=== PATIENT | male | born 1955 | race Caucasian/White ===

== ENCOUNTER 2023-09-29 06:17 | Day surgery (SDC) | payer OTHER, SELFPAY ==
[2023-09-29] VITALS (13 sets, daily range): BP systolic 131–162; BP diastolic 64–88; BMI 28.7
[2023-09-29 07:15] LABS: Blood Urea Nitrogen 30 mg/dl (9-20); Carbon Dioxide 26 mmol/L (22-30); Chloride 101 mmol/L (98-107); Estimated Creatinine Clearance 49 ml/min; Glucose 84 mg/dl (70-99); Potassium 2.8 mmol/L (3.5-5.1); Sodium 138 mmol/L (135-145); eGFR > 60.00
[2023-09-29] MEDS: NSS 220 ML IV (07:18)
[2023-09-29] MEDS: LOW STRENGTH ASPIRIN 81 MG PO (07:19)
[2023-09-29] MEDS: KCL 40 MEQ PO (08:00)
--- NOTE | 2023-09-29 09:46 | ITS.CL.CATH ---
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
Cardiac Catheterization
Procedure Report:
RIGHT AND LEFT HEART CATHETERIZATION
Date of Procedure: September 29, 2023
Referring: Dr. Raman Cox
PROCEDURES:
1. Right heart catheterization
2. Left heart catheterization with coronary angiography
3. Selective saphenous vein graft and SHIREEN angiography
4. Right iliofemoral angiography performed to evaluate for flow-limiting dissection due to inability to pass wires from common femoral artery to aorta.
INDICATION: This is a 67-year-old gentleman with a complex past cardiovascular history including ongoing dyspnea and exertional chest pressure. His creatinine had peaked at 2.6 while on valsartan, spironolactone, and an SGLT2 inhibitor. He
experienced sudden syncope on 2 occasions and now has a Linq monitor placed. He is known to have underlying pulmonary fibrosis and COPD. His symptoms have persisted and he is now referred for right and left heart catheterization.
ACCESS: Unsuccessful right common femoral access due to inability to pass wire proximally. Arterial access was then obtained in the left common femoral artery with micropuncture technique. Venous access was obtained in the right common femoral
vein using ultrasound guidance.
HEMODYNAMICS (mmHg) :
RA (m) : 16
RV (s/d) : 68/9, 13
PA (s/d,m) : 70/29, 43
PCWP (m) : 15
AO (s/d, m) : 148/70, 99
LV (s/d) : 149/11
LVEDP (m) : 18
Estimated Hasmukh Cardiac Output: 4.1 L/min and Cardiac Index: 2.4 L/min/M-2
Systemic vascular resistance: 20.2 Wood units or 1620 [id number](-5)
Pulmonary vascular resistance: 6.8 Wood units or 546.3 canec-[id number]-[id number](-5)
CORONARY ANGIOGRAPHY
Dominance: Right
LEFT MAIN: 60% ostial stenosis
LEFT ANTERIOR DESCENDING: The LAD arises normally from the left main and runs in the anterior interventricular groove. The proximal LAD has a 80% stenosis just beyond a small first septal footwear stitcher. The mid LAD becomes occluded/subtotally
occluded beyond a medium caliber first diagonal branch. The distal LAD fills via a widely patent SHIREEN graft
CIRCUMFLEX: The circumflex is a medium caliber nondominant vessel. OM1 is a very small caliber bifurcating vessel. OM 2 is known to be chronically occluded and is grafted with proximal touchdown of the sequential graft to OM 2 then continues to
the PDA
RIGHT CORONARY ARTERY: 100% occluded proximally
GRAFT ANGIOGRAPHY:
1. HALL-LAD: The HALL graft to the mid LAD is widely patent with antegrade and retrograde filling of the LAD
2. SVG-OM 2-PDA: The sequential saphenous vein graft to the bifurcating OM 2 is widely patent with antegrade and retrograde filling into both daughter branches from OM 2. The sequential graft continues to the mid PDA which fills antegrade and
retrograde
Left Lower Extremity Angiography: A rim catheter was advanced to the aortic bifurcation cannulating the origin of the right common iliac artery. Angiography of the iliofemoral vessels revealed a normal caliber common iliac through common femoral.
There is a 50% stenosis in the mid common femoral artery. No obvious dissection flap is noted.
RADIATION SUMMARY: Fluoro Time (min): 6.7, Dose (mGy): 550, DAP (Gy.cm2) : 52.6
Closure Device: 6 Czech Angio-Seal LFA
CONCLUSION
1. Patent HALL-LAD and sequential SVG-OM 2-PDA. Severe multivessel [place] coronary artery disease
2. Elevated pulmonary vascular resistance to 6.8 Wood units
3. Compensated left ventricular filling pressures with a pulmonary capillary wedge pressure measuring 15 mmHg and LVEDP measuring 18 mmHg
RECOMMENDATIONS
1. Continue medical therapy
2. Consider pulmonary evaluation given elevated mean pulmonary artery pressures to 43 mmHg and PVR of 6.8 Wood units
Copy to: Dr. Raman Cox
[2023-09-29] MEDS: NSS 1000 IV (10:02)
== END 2023-09-29 12:38 | disposition home or self-care (01) ==
LOC: CATH 06:17
PROVIDERS: ATTENDING PHYSICIAN Internal Medicine Interventional Cardiology; FAMILY PHYSICIAN Internal Medicine Geriatric Medicine
DX: I25.10 Atherosclerotic heart disease of native coronary artery without angina pectoris (principal); J44.9 Chronic obstructive pulmonary disease, unspecified; J84.10 Pulmonary fibrosis, unspecified; R55 Syncope and collapse; I25.82 Chronic total occlusion of coronary artery; Z95.1 Presence of aortocoronary bypass graft; E78.00 Pure hypercholesterolemia, unspecified; I10 Essential (primary) hypertension; E11.9 Type 2 diabetes mellitus without complications; Z79.4 Long term (current) use of insulin; Z79.82 Long term (current) use of aspirin
CPT/HCPCS: 80048; 93461; C1760; C1894; G0278

== ENCOUNTER 2023-10-03 10:04 | Emergency (ER) | payer OTHER, SELFPAY ==
[2023-10-03 10:06] VITALS: BP 121/75
--- NOTE | 2023-10-03 10:49 | ED.GENMED ---
History of Present Illness
<Kerry Snell PA-C - Last Filed: 10/04/23 10:16>
General
Chief Complaint: Musculo-Skeletal Complaint
Source: patient
Exam Limitations: none
Time Seen by Provider: 10/03/23 10:37
Nursing documentation reviewed up to this point in time: agreed with
Travel History
Have you had any contact with someone who has COVID-19?: No
Do you have any symptoms of coronavirus? Fever > 100 degrees, chills, cough, shortness of breath, sore throat, loss of taste or smell, muscle aches, or headache?: No
History of Present Illness
History of Present Illness:
67 y/o M with h/o COPD, alcohol use, HTN , HLD, CHF, CAD
s/p R and L heart cath on 09/2023
showing severe multivessel CAD
elevated pulm vasculature
compensated LV filling pressures
day after the procedure started having some low back pain, which pt does have h/o, aand was taking pain pills for - history of previous lumbar surgery and does have h/o chronic lower back pain but he usually doesn't have to take meds
then noticed L medial foot pain, redness, slight swelling
he called cards and was told to come in
he gutierrez not had any chest pain, shortness of breath, fever, chills
pt drinks alcohol a few times a week
no trauma to foot, no cold foot, foot drop, fever, chills, previous h/o gout.
Past History
<Kerry Snell PA-C - Last Filed: 10/04/23 10:16>
Past History
ED Past Medical History: CAD, COPD, GERD, HTN, Hypercholesterolemia, IDDM and Other (Dizzines, Sciatic pain, PNA, Anemia, )
ED Past Surgical History: Cardiac (Triple bypass, Right carotid surgery) and Orthopedic (Laminectomy L5-S1)
Social History
Tobacco: Smoker
Alcohol: Daily (Whisky 2-3)
Personal: Single
Living: alone
Employment: Employed
Family History
Family History: Negative Diabetes, Hypertension or CAD
Review of Systems
<Kerry Snell PA-C - Last Filed: 10/04/23 10:16>
Review of Systems
Allergies reviewed?: Yes
All Other Systems: Not applicable
Phy Exam
<Kerry Snell PA-C - Last Filed: 10/04/23 10:16>
Physical Exam
Physical Exam:
GENERAL: Alert , in no apparent distress, comfortable at rest
HEAD: NCAT
CV: 2+ DP PULSES B/L
normal sensation
b/l fem pulses normal
no pulsatile masses in groin
back: nontneder, some pain with movement but neg straight leg raise, no bruising
abdomen: soft,, nontender, no swelling
NEUROLOGICAL: Alert and oriented, no focal neuro deficits, , 5/5 strength, sensation intact, ambulation intact
SKIN: Warm and dry,
small area of erythema medial foot left
MUSCULOSKELETAL: left foot medial minimal swelling an derythema, warmth
full ankle rom
no effusion
mild tenderness to palpation
normal calf/thigh exam
PSYCH: Normal and appropriate interaction.
Course
<Kerry Snell PA-C - Last Filed: 10/04/23 10:16>
Orders/Labs/Results
Orders:
Orders
10/03/23 11:20
Foot, Left 3 View [CR Foot - Left Min 3 Views] Urgent
Comment:
Reason For Exam: medial foot swelling and pain
10/03/23 11:22
Complete Blood Count/With Diff Urgent
Comprehensive Metabolic Panel Urgent
Uric Acid Urgent
10/03/23 12:56
Prednisone [Deltasone] 40 mg PO NOW STA
Abnormal Lab Results
10/03/23
11:22
MPV 10.6 H fL
(7.4-10.4)
Abs Immat Gran (auto) 0.1 H 10^3/uL
(0-0.05)
Absolute Neuts (auto) 6.9 H 10^3/uL
(1.4-6.5)
Absolute Monos (auto) 0.9 H 10^3/uL
(0.1-0.6)
Immature Gran % 0.7 H %
(0-0.5)
Lymphocytes % 14.6 L %
(20.5-51.1)
Monocytes % 9.4 H %
(1.7-9.3)
Potassium 3.0 L mmol/L
(3.5-5.1)
BUN 35 H mg/dl
(9-20)
Glucose 208 H mg/dl
(70-99)
Calcium 10.5 H mg/dl
(8.4-10.2)
10/03/23 11:22
10/03/23 11:22
Vital Signs
Initial and Last Documented VS:
Initial Vital Signs
Temp Pulse Resp BP Pulse Ox
98.1 F 64 18 121/75 93
10/03/23 10:06 10/03/23 10:06 10/03/23 10:06 10/03/23 10:06 10/03/23 10:06
Last Documented Vital Signs
Temp Pulse Resp BP Pulse Ox
98.1 F 64 18 121/75 93
10/03/23 10:06 10/03/23 10:06 10/03/23 10:06 10/03/23 10:06 10/03/23 10:06
<Yvon Simmons, DO - Last Filed: 10/03/23 13:01>
Orders/Labs/Results
Orders:
Orders
10/03/23 11:20
Foot, Left 3 View [CR Foot - Left Min 3 Views] Urgent
Comment:
Reason For Exam: medial foot swelling and pain
10/03/23 11:22
Complete Blood Count/With Diff Urgent
Comprehensive Metabolic Panel Urgent
Uric Acid Urgent
10/03/23 12:56
Prednisone [Deltasone] 40 mg PO NOW STA
Abnormal Lab Results
10/03/23
11:22
MPV 10.6 H fL
(7.4-10.4)
Abs Immat Gran (auto) 0.1 H 10^3/uL
(0-0.05)
Absolute Neuts (auto) 6.9 H 10^3/uL
(1.4-6.5)
Absolute Monos (auto) 0.9 H 10^3/uL
(0.1-0.6)
Immature Gran % 0.7 H %
(0-0.5)
Lymphocytes % 14.6 L %
(20.5-51.1)
Monocytes % 9.4 H %
(1.7-9.3)
Potassium 3.0 L mmol/L
(3.5-5.1)
BUN 35 H mg/dl
(9-20)
Glucose 208 H mg/dl
(70-99)
Calcium 10.5 H mg/dl
(8.4-10.2)
10/03/23 11:22
10/03/23 11:22
Vital Signs
Initial and Last Documented VS:
Initial Vital Signs
Temp Pulse Resp BP Pulse Ox
98.1 F 64 18 121/75 93
10/03/23 10:06 10/03/23 10:06 10/03/23 10:06 10/03/23 10:06 10/03/23 10:06
Last Documented Vital Signs
Temp Pulse Resp BP Pulse Ox
98.1 F 64 18 121/75 93
10/03/23 10:06 10/03/23 10:06 10/03/23 10:06 10/03/23 10:06 10/03/23 10:06
<Kerry Snell PA-C - Last Filed: 10/04/23 10:16>
MDM/Problems Addressed
Differential Diagnosis Includes:
gout, arthritis, trauma, less likely blood clot, aneurysm
MDM/Problems Addressed:
67-year-old male presents for left medial foot redness and slight swelling and pain for the last 2 days. He had a cardiac catheterization 4 days ago, he had a left femoral access after his right femoral was not able to be advanced with a wire.
Patient had no significant postprocedure bleeding and has had some bruising in his groin which is not expanding. He has not had any pain or tenderness in the groin. He did have some back pain which is acute on chronic. He has had issues with his
back previously. He has no numbness tingling or weakness in the leg. He called someone from the cardiology office who told him to come to the hospital. Patient on exam looks well, has no abdominal tenderness, no back tenderness but has some
slight painful range of motion, flexion of his back with changing positions seems musculoskeletal. His groin has some ecchymosis without any masses, no bruits. His thigh and distal lower leg exam is normal. Except he does have a area of focal
redness more arthritic changes and less likely to be infection or signs of a DVT. Patient has history of alcohol use. He is never had gout.
His x-rays independently reviewed by me and negative for any signs of pseudogout or severe arthritis. His hemoglobin is stable which is reassuring that he does not have a retroperitoneal bleed. There is no bruit to suggest an aneurysm. Patient
has chronically low potassium which he says he has pills at home to take. Seen by ED attending who agrees with plan to treat with steroids presumably for gout because we need to avoid NSAIDs with his CAD. Return precautions
<Kerry Snell PA-C - Last Filed: 10/04/23 10:16>
*Critical Care Note
Total Time (30-74mins, 75-104mins- exclusive of procedures): Not Applicable
<Yvon Simmons, - Last Filed: 10/03/23 13:01>
Update Note
Update Note:
1 PM x-ray negative. Uric acid level is high normal. Will treat as likely gout. Patient has to avoid NSAIDs due to kidney disease. Will start steroids. We discussed keeping an eye on his blood sugar. Discussed follow-up with PCP. Patient's
potassium is low. He states it is chronically low. Discussed taking 2 extra pills of potassium at home.
ED Attending Note
<Kerry Snell PA-C - Last Filed: 10/04/23 10:16>
-
Portions of this chart may have been created with voice recognition software.� Occasional wrong word or��sound alike� substitutions may have occurred due to the inherent limitations of voice recognition software.
<Yvon Simmons, DO - Last Filed: 10/03/23 13:01>
ED Attending Note
Patient seen and examined by attending physician: Yes
I performed the substantive portion of visit, reviewed & personally made and approve the management plan that is documented in note by myself or LANE.: Yes
ED Attending Note:
I have seen and evaluated the patient with a [id number] encounter. I have spoken to the advance practicer provider and involved in the medical history, the physical exam, medical decision making.
Evaluation and management service: agree unless noted differently below.
Results interpretation: agree unless noted differently below.
Focused HPI: 67-year-old male presenting with left foot pain and swelling. He noticed this the day after receiving cardiac catheterization. They went through the left thigh. He called the cardiology office and was sent in for
Physical exam: Sitting bed comfortably. Mild erythema and tenderness to medial left foot. Distal pulses intact. Sensation intact. Joint intact. Mild ecchymosis to left thigh but bounding pulses.. No thigh or calf tenderness. No back
tenderness either
Medical Decision Making: Patient has great pulses in his foot. It appears to be unrelated to the actual arterial puncture site during the cardiac catheterization. Symptoms are more consistent with likely gout. Will obtain x-ray and blood work.
No clinical evidence of DVT
Discharge Plan
Departure
Patient Disposition: Home (Routine Discharge)
Patient with high blood pressure during this ER visit?: No
Discharge Problem:
Gout
Instructions: Low Purine Diet, Gout ED
Prescriptions:
New
prednisone 20 mg tablet
40 mg PO DAILY Qty: 10 0RF
No Action
aspirin 81 mg Tablet,Delayed Release (Dr/Ec)
81 mg PO DAILY
Hold Instructions: RESUME 5 days post-op
amlodipine 10 mg Tablet
5 mg PO DAILY
albuterol sulfate 90 mcg/actuation Hfa Aerosol Inhaler
2 puff INHALATION R Q4HPRN PRN (Reason: SOB, Wheezes)
metoprolol succinate 25 mg Tablet Extended Release 24 Hr
25 mg PO QPM
nitroglycerin 0.4 mg Tablet, Sublingual
0.4 mg SUBLINGUAL [id number] PRN (Reason: chest pain)
esomeprazole magnesium 40 mg Capsule,Delayed Release(Dr/Ec)
40 mg PO DAILY
Trelegy Ellipta 100-62.5-25 mcg blister with device
1 inh INHALATION R DAILY Qty: 0 0RF
spironolactone 25 mg Tablet
12.5 mg PO DAILY Qty: 30 0RF
potassium chloride 20 mEq tablet,ER particles/crystals
40 meq PO TID Qty: 90 0RF
furosemide [Lasix] 40 mg tablet
40 mg PO DAILY Qty: 30 0RF
ezetimibe 10 mg Tablet
10 mg PO DAILY
rosuvastatin 20 mg Tablet
20 mg PO DAILY
Short Acting Insulin As Needed
6 units SC TIDPRN PRN (Reason: insulin sliding scale TID)
Rx Instructions:
Unsure of name
hydralazine 10 mg tablet
5 mg PO BID
insulin glargine [Lantus Solostar U-100 Insulin] 300 UNITS/3 ML insulin pen
60 unit SC HS
Referrals:
Marcus Smith MD [Family Provider] -
Activity Restrictions/Additional Instructions:
Please return for any worsening symptoms.
You may return at any time if you have further concerns.
Please follow up with your doctor at the first available appointment, preferably this week. As we discussed,
Please take 2 extra potassium pills as we discussed. Please have this blood work rechecked next week.
Thank you for choosing [facility].
Interventions
Interventions:
*Risk Screen - Suicide Last Done: 10/03/23 10:08
*General Assessment Last Done: 10/03/23 10:08
*Neglect/Abuse Screening Last Done: 10/03/23 10:08
ED- Fall Risk Assessment Last Done: 10/03/23 12:44
*ED COVID-19 Vaccine History Last Done: 10/03/23 12:44
*Nursing Disposition Last Done: 10/03/23 12:44
ED- Cardiac Assessment Last Done: 10/03/23 12:43
ED-Musculoskeletal Assessment Last Done: 10/03/23 12:43
ED- Pulmonary Assessment Last Done: 10/03/23 12:43
ED-Skin Assessment Last Done: 10/03/23 12:43
Discharge Date and Time
Discharge Date/Time: 10/03/23 12:44
Print Language: AMHARIC
[2023-10-03 11:36] LABS: % Basophils 0.8 % (0-2); % Eosinophils 3.3 % (0-6); % Immature Granulocytes 0.7 % (0-0.5); % Lymphocytes 14.6 % (20.5-51.1); % Monocytes 9.4 % (1.7-9.3); % Neutrophils 71.2 % (42.2-75.2); Absolute Basophils 0.1 10^3/uL (0-0.2); Absolute Eosinophils 0.3 10^3/uL (0-0.7); Absolute Immature Granulocytes 0.1 10^3/uL (0-0.05); Absolute Lymphocytes 1.4 10^3/uL (1.2-3.4); Absolute Monocytes 0.9 10^3/uL (0.1-0.6); Absolute Neutrophils 6.9 10^3/uL (1.4-6.5); Hematocrit 43.7 % (39.0-52.0); Hemoglobin 15.9 g/dL (13.0-18.0); Mean Corp Hgb Conc. 36.4 g/dL (33.0-37.0); Mean Corpuscular Hgb 29.6 pg (27.0-31.0); Mean Corpuscular Volume 81.4 fL (80.0-94.0); Mean Platelet Volume 10.6 fL (7.4-10.4); Nucleated Red Blood Cells % 0 % (-); Platelet Count 209 10^3/uL (130-400); Red Blood Cell Count 5.37 10^6/uL (4.70-6.10); Red Cell Dist. Width 13.8 % (11.5-14.5); White Blood Cell Count 9.7 10^3/uL (4.8-10.8)
[2023-10-03 11:55] LABS: ALT (SGPT) 23 U/L (0-50); AST (SGOT) 24 U/L (17-59); Albumin 4.6 g/dl (3.5-5.0); Alkaline Phosphatase 84 U/L (38-126); Blood Urea Nitrogen 35 mg/dl (9-20); Calcium 10.5 mg/dl (8.4-10.2); Carbon Dioxide 26 mmol/L (22-30); Chloride 98 mmol/L (98-107); Glucose 208 mg/dl (70-99); Sodium 137 mmol/L (135-145); Total Bilirubin 0.9 mg/dl (0.2-1.3); Total Protein 7.9 g/dl (6.3-8.2); eGFR > 60.00
[2023-10-03 12:47] LABS: Uric Acid 7.1 mg/dl (3.5-8.5)
[2023-10-03] MEDS: DELTASONE 40 MG PO (13:00)
== END 2023-10-03 12:44 | disposition home or self-care (01) ==
LOC: EMR 10:04
PROVIDERS: Physician Assistant; EMERGENCY PHYSICIAN Student in an Organized Health Care Education/Training Program; FAMILY PHYSICIAN Internal Medicine Geriatric Medicine
DX: M10.9 Gout, unspecified (principal); I10 Essential (primary) hypertension; F17.200 Nicotine dependence, unspecified, uncomplicated; E78.5 Hyperlipidemia, unspecified; I50.9 Heart failure, unspecified; I25.10 Atherosclerotic heart disease of native coronary artery without angina pectoris
CPT/HCPCS: 99284; 73630; 80053; 84550; 85025

== ENCOUNTER → 2023-10-16 13:49 | Outpatient (REF) | payer OTHER, SELFPAY | LOC: RAD 13:49 | PROVIDERS: ATTENDING PHYSICIAN Surgery Vascular Surgery; FAMILY PHYSICIAN Internal Medicine Geriatric Medicine | DX: I65.21 Occlusion and stenosis of right carotid artery (principal) | CPT/HCPCS: 93880 ==

== ENCOUNTER 2023-11-04 12:42 | Emergency (ER) | payer OTHER, SELFPAY ==
[2023-11-04 12:48] VITALS: BP 144/85
--- NOTE | 2023-11-04 13:14 | ED.GENMED ---
History of Present Illness
General
Chief Complaint: Back Pain
Source: patient
Exam Limitations: none
Time Seen by Provider: 11/04/23 13:14
Nursing documentation reviewed up to this point in time: agreed with
Travel History
Have you had any contact with someone who has COVID-19?: No
Do you have any symptoms of coronavirus? Fever > 100 degrees, chills, cough, shortness of breath, sore throat, loss of taste or smell, muscle aches, or headache?: No
History of Present Illness
History of Present Illness:
67 yo male w h/o discectomy 1997, L5-S1, revised L5 S1 Laminectomy 2021, chronic back pain, sciatica, neuropathy, COPD, CHF, CAD, CABG, Loop recorder, HTN, HLD, edema, IDDM, CKD, presents for 2 weeks of intermittent, gradually increasing right low
back pain, 'excruciating' past several days with radiation down R buttock to mid right thigh. Used his last Oxycodone he had left over from his back surgery, 'that's the only thing that helped.' No thinners, Denies recent injury. Denies loss of
bowel or bladder control, denies saddle anesthesia or new weakness in legs. Denies fever/chills. Went to PCP Dr. Trujillo's office and his [employer] sent him here for evaluation. He is requesting xray of his lower back 'to be sure all the screws and stuff
are in place.'
Past History
Past History
ED Past Medical History: CAD, COPD, GERD, HTN, Hypercholesterolemia, IDDM and Other (Dizzines, Sciatic pain, PNA, Anemia, )
ED Past Surgical History: Cardiac (Triple bypass, Right carotid surgery) and Orthopedic (Laminectomy L5-S1)
Social History
Tobacco: Smoker
Alcohol: Daily (Whisky 2-3)
Personal: Single
Living: alone
Employment: Not employed
Family History
Family History: Negative Diabetes, Hypertension or CAD
Review of Systems
Review of Systems
Allergies reviewed?: Yes
All Other Systems: ROS reviewed and negative except as documented in HPI and ROS
Constitutional: Denies fever or chills
Respiratory: Denies trouble breathing
Cardiac: Denies chest pain
ABD/GI: Denies abdominal pain, nausea or constipated
: Denies frequency, incontinence or difficulty voiding
Musculoskeletal: Reports back pain (right lower back with radiation down right buttock and to mid thigh)
Skin: Reports no symptoms
Neurological: Denies weakness or numbness
Phy Exam
Physical Exam
Physical Exam:
GENERAL: No acute distress. A&Ox3.
CONSTITUTIONAL: Afebrile.
RESPIRATORY: Regular respirations, nonlabored, lungs clear.
CARDIOVASCULAR: Regular rate and rhythm, no murmurs, no rubs.
GI: Soft, nontender, normal BS
MUSCULOSKELETAL: Ambulating with cane, able to get onto stretcher independently and bring legs up but with moaning. No significant low back tenderness to palpation. Mild tenderness right buttock. Strength 5/5 bilateral LEs. Pain aggravated with
raising straight right leg but not left. Well perfused.
SKIN: Warm, dry, pink
PSYCH: Normal mood and affect. Well kept, interactive and appropriate
NEUROLOGIC: Awake, alert and oriented. No focal neurological deficits
Course
Orders/Labs/Results
Orders:
Orders
11/04/23 12:53
CR Lumbar Spine 2 Or 3 Views Urgent
Comment:
Reason For Exam: pain
11/04/23 13:40
Dexamethasone [Decadron] 10 mg PO NOW STA
Oxycodone/Acetaminophen [Percocet 5/325] 1 tablet PO NOW STA
Vital Signs
Initial and Last Documented VS:
Initial Vital Signs
Temp Pulse Resp BP Pulse Ox
98.2 F 96 20 144/85 96
11/04/23 12:48 11/04/23 12:48 11/04/23 12:48 11/04/23 12:48 11/04/23 12:48
Last Documented Vital Signs
Temp Pulse Resp BP Pulse Ox
98.2 F 85 20 133/76 96
11/04/23 12:48 11/04/23 15:34 11/04/23 12:48 11/04/23 15:34 11/04/23 12:48
MDM/Problems Addressed
Differential Diagnosis Includes:
exacerbation of chronic low back pain, sciatica, cauda equina
MDM/Problems Addressed:
67 yo male w h/o discectomy 1997, L5-S1, revised L5 S1 Laminectomy 2021, chronic back pain, sciatica, neuropathy, COPD, CHF, CAD, CABG, Loop recorder, HTN, HLD, edema, IDDM, CKD, presents for 2 weeks of intermittent, gradually increasing right low
back pain, 'excruciating' past several days with radiation down R buttock to mid right thigh. Used his last Oxycodone he had left over from his back surgery, 'that's the only thing that helped.' No thinners, Denies recent injury. Denies loss of
bowel or bladder control, denies saddle anesthesia or new weakness in legs. Denies fever/chills. Went to PCP Dr. Trujillo's office and his [employer] sent him here for evaluation. He is requesting xray of his lower back 'to be sure all the screws and stuff
are in place.'
Afebrile
No cauda equina. Pt ambulating with cane
No hx cancer, no thinners
3:10 PM
X-ray lumbar spine radiology report read: IMPRESSION:
No acute radiographic abnormalities.
Stable appearance of prior L5-S1 posterior fusion with grade 1 anterolisthesis at this level with severe degenerative disc disease. Mild disc disease at L4-5.
Copy of x-ray report given to patient
Discussed with pt importance of checking blood sugars while using steroids, he states he is fully aware as he's used them before.
Will send rx to pharmacy for muscle relaxant, short burst steroids, Oxycodone enough for 2 days, and he is to make F/U appt with his PCP for Friday (3 days) if he needs more
Given info for pain management.
*Critical Care Note
Total Time (30-74mins, 75-104mins- exclusive of procedures): Not Applicable
ED Attending Note
-
Portions of this chart may have been created with voice recognition software.� Occasional wrong word or��sound alike� substitutions may have occurred due to the inherent limitations of voice recognition software.
Discharge Plan
Departure
Patient Disposition: Home (Routine Discharge)
Date of Disposition: 11/04/23
Time of Disposition: 15:13
Patient with high blood pressure during this ER visit?: No
Condition: Fair
Discharge Problem:
Acute exacerbation of chronic low back pain, Right sided sciatica
Instructions: Low Back Pain (DC), Sciatica (DC)
Prescriptions:
New
prednisone 20 mg tablet
40 mg PO DAILY Qty: 6 0RF
cyclobenzaprine 10 mg tablet
10 mg PO BID PRN (Reason: back pain/spasms) Qty: 20 0RF
oxycodone-acetaminophen 5-325 mg tablet
1 tab PO Q8H PRN (Reason: Pain) Qty: 6 0RF
No Action
aspirin 81 mg Tablet,Delayed Release (Dr/Ec)
81 mg PO DAILY
Hold Instructions: RESUME 5 days post-op
amlodipine 10 mg Tablet
5 mg PO DAILY
albuterol sulfate 90 mcg/actuation Hfa Aerosol Inhaler
2 puff INHALATION R Q4HPRN PRN (Reason: SOB, Wheezes)
metoprolol succinate 25 mg Tablet Extended Release 24 Hr
25 mg PO QPM
nitroglycerin 0.4 mg Tablet, Sublingual
0.4 mg SUBLINGUAL [id number] PRN (Reason: chest pain)
esomeprazole magnesium 40 mg Capsule,Delayed Release(Dr/Ec)
40 mg PO DAILY
Trelegy Ellipta 100-62.5-25 mcg blister with device
1 inh INHALATION R DAILY Qty: 0 0RF
spironolactone 25 mg Tablet
12.5 mg PO DAILY Qty: 30 0RF
potassium chloride 20 mEq tablet,ER particles/crystals
40 meq PO TID Qty: 90 0RF
furosemide [Lasix] 40 mg tablet
40 mg PO DAILY Qty: 30 0RF
ezetimibe 10 mg Tablet
10 mg PO DAILY
rosuvastatin 20 mg Tablet
20 mg PO DAILY
Short Acting Insulin As Needed
6 units SC TIDPRN PRN (Reason: insulin sliding scale TID)
Rx Instructions:
Unsure of name
hydralazine 10 mg tablet
5 mg PO BID
insulin glargine [Lantus Solostar U-100 Insulin] 300 UNITS/3 ML insulin pen
60 unit SC HS
prednisone 20 mg tablet
40 mg PO DAILY Qty: 10 0RF
Referrals:
Leonel Sinclair MD [Active] - Next open appointment
Marcus Smith MD [Family Provider] - Follow up in 2-3 days
Activity Restrictions/Additional Instructions:
As we discussed, your xray shows nothing new or worrisome.
Dr. Sinclair is a pain management doctor, call and make next available appointment as it may be sometime before he can get into see him.
I sent a prescription to your pharmacy for prednisone 40 mg a day for the next 3 days. Check your blood sugars at least twice a day and cover yourself with your sliding scale insulin if your blood sugar is above 250.
I also sent a prescription for muscle relaxant Flexeril or psych to bring, this can make you sleepy and slow the reflexes so do not drive or operate any machinery within 8 hours of taking it.
I sent a prescription for oxycodone, 5 tablets call today to make appointment with Dr. Carbone for Friday. If you want more pain medication, he will have to prescribe it..
Interventions
Interventions:
*Risk Screen - Suicide Last Done: 11/04/23 12:48
*General Assessment Last Done: 11/04/23 12:48
*Neglect/Abuse Screening Last Done: 11/04/23 12:48
ED- Fall Risk Assessment Last Done: 11/04/23 13:57
*Nursing Disposition Last Done: 11/04/23 15:34
ED-Musculoskeletal Assessment Last Done: 11/04/23 13:57
Discharge Date and Time
Discharge Date/Time: 11/04/23 15:34
Print Language: CITIZEN [place]
[2023-11-04] MEDS: PERCOCET 5/325 1 TABLET PO (14:06)
[2023-11-04] MEDS: DECADRON 10 MG PO (14:06)
[2023-11-04 15:34] VITALS: BP 133/76
== END 2023-11-04 15:34 | disposition home or self-care (01) ==
LOC: EMR 12:42
PROVIDERS: EMERGENCY PHYSICIAN Student in an Organized Health Care Education/Training Program; FAMILY PHYSICIAN Internal Medicine Geriatric Medicine
DX: G89.29 Other chronic pain (principal); M54.41 Lumbago with sciatica, right side; F17.200 Nicotine dependence, unspecified, uncomplicated
CPT/HCPCS: 99283; 72100

== ENCOUNTER → 2024-02-03 06:40 | Outpatient (REF) | payer OTHER, SELFPAY | LOC: RSP 06:40 | PROVIDERS: ATTENDING PHYSICIAN Internal Medicine Cardiovascular Disease; FAMILY PHYSICIAN Internal Medicine Geriatric Medicine | DX: I27.0 Primary pulmonary hypertension (principal) | CPT/HCPCS: 94727; 94729; 94060 ==

== ENCOUNTER → 2024-02-19 10:36 | Outpatient (REF) | payer OTHER, SELFPAY | LOC: RAD 10:36 | PROVIDERS: ATTENDING PHYSICIAN Internal Medicine Cardiovascular Disease; FAMILY PHYSICIAN Internal Medicine Geriatric Medicine | DX: Z78.9 Other specified health status (principal); K76.6 Portal hypertension | CPT/HCPCS: 76700; 93975 ==

== ENCOUNTER → 2024-04-26 14:02 | Outpatient (REF) | payer OTHER, SELFPAY | LOC: DHVS 14:02 | PROVIDERS: ATTENDING PHYSICIAN Surgery Vascular Surgery; FAMILY PHYSICIAN Internal Medicine Geriatric Medicine | DX: I73.9 Peripheral vascular disease, unspecified (principal); I65.21 Occlusion and stenosis of right carotid artery | CPT/HCPCS: 93880; 93922; 93925 ==

== ENCOUNTER 2024-06-14 15:33 | Inpatient (IN) | payer OTHER, MEDICARE, SELFPAY ==
[2024-06-14] VITALS (10 sets, daily range): BP systolic 100–151; BP diastolic 51–83; BMI 26.2
--- NOTE | 2024-06-14 12:02 | ED.GENMED ---
ED Provider Triage
<Elidia Pickett NP - Last Filed: 06/14/24 12:08>
-
Patient seen by provider in Triage?: Seen in Triage
Attestation: A medical screening examination has been initiated by a qualified medical provider. Based on the assessment performed at this time, it has been determined that an emergent medical condition may exist and the patient has been informed
that further medical evaluation and possible additional diagnostic testing may be needed.
HPI: 68-year-old male with history of pulmonary arterial hypertension, COPD on home oxygen 2 L nasal cannula at night. Is here now for increasing SOB, dizziness and lightheadedness for the past 4-days. When he gets up from laying or sitting he
feels like he is unsteady 'staggering.' On arrival pulse ox was 87%, placed on 2 L nasal cannula and increased to 94%.
GENERAL: Alert , in no apparent distress
EYE: No visual abnormalities.
NECK: Trachea midline
ENT: No visible abnormalities.
LUNGS: No acute respiratory distress. Mild crackles both lung bases.
NEUROLOGICAL: Alert and oriented
SKIN: Skin intact. No visible changes.
MUSCULOSKELETAL: Moving extremities normally
PSYCH: Normal and appropriate interaction.
This is a medical evaluation conducted in person to initiate diagnostic evaluation and provide initial therapeutics. Please see further documentation by the treating clinician.
History of Present Illness
<Elidia Pickett CHEMICAL STRENGTH TESTER - Last Filed: 06/14/24 12:08>
General
Chief Complaint: Cardiac Symptoms
Time Seen by Provider: 06/14/24 13:09
<Daniel Stauffer PA-C - Last Filed: 06/14/24 14:39>
General
Source: patient
Exam Limitations: none
History of Present Illness
History of Present Illness:
68-year-old male presents complaining of unsteadiness shortness of breath and dizziness over the past several days. His history of COPD CHF coronary artery disease requiring triple bypass. He is an insulin-dependent diabetic. He follows with
cardiology. He is on an aspirin but no other anticoagulants. He notes some chest tightness. No leg swelling or weight gain. He spoke with the office that his cardiology team today and was sent here for further evaluation
Past History
<Elidia Pickett CHEMICAL STRENGTH TESTER - Last Filed: 06/14/24 12:08>
Past History
ED Past Medical History: CAD, COPD, GERD, HTN, Hypercholesterolemia, IDDM and Other (Dizzines, Sciatic pain, PNA, Anemia, )
ED Past Surgical History: Cardiac (Triple bypass, Right carotid surgery) and Orthopedic (Laminectomy L5-S1)
Social History
Tobacco: Smoker
Alcohol: Daily (Whisky 2-3)
Personal: Single
Living: alone
Employment: Not employed
Family History
Family History: Negative Diabetes, Hypertension or CAD
Phy Exam
<Daniel Stauffer PA-C - Last Filed: 06/14/24 14:39>
Physical Exam
Physical Exam:
General: Well-appearing male on nasal cannula oxygen but no acute respiratory distress otherwise
HEENT: Normocephalic atraumatic
Heart: Regular rate and rhythm
Lungs: Subtle crackles at the base mild mid lung wheezes
Abdomen is soft nontender nondistended
Extremities: Mild edema bilateral lower extremities
Skin: Warm no rash
Course
<Elidia Pickett, CHEMICAL STRENGTH TESTER - Last Filed: 06/14/24 12:08>
Orders/Labs/Results
Orders:
Orders
06/14/24 11:18
ECG [Electrocardiogram (*1)] Urgent
Reason for Study: Shortness of Breath
EKG- Treatment ONCE
06/14/24 12:06
Electrocardiogram (*1) Urgent
Reason for Study: Shortness of Breath
EKG- Treatment ONCE
CR Chest - 2 Views Urgent
Comment:
Reason For Exam: SOB
06/14/24 12:13
Complete Blood Count/With Diff Urgent
Comprehensive Metabolic Panel Urgent
NT-proBNP Urgent
Troponin I Urgent
06/14/24 13:28
Ipratropium/Albuterol Sulfate [Duoneb] 3 ml INH R NOW ONE
06/14/24 14:35
Furosemide [Lasix] 40 mg IV NOW STA
Abnormal Lab Results
06/14/24
12:13
Absolute Lymphs (auto) 0.9 L 10^3/uL
(1.2-3.4)
Absolute Monos (auto) 0.8 H 10^3/uL
(0.1-0.6)
Neutrophils % 77.7 H %
(42.2-75.2)
Lymphocytes % 10.2 L %
(20.5-51.1)
Monocytes % 9.6 H %
(1.7-9.3)
Chloride 96 L mmol/L
(98-107)
BUN 27 H mg/dl
(9-20)
Glucose 162 H mg/dl
(70-99)
06/14/24 12:13
06/14/24 12:13
Vital Signs
Initial and Last Documented VS:
Initial Vital Signs
Temp Pulse Resp BP Pulse Ox
98.0 F 81 16 146/83 87
06/14/24 12:00 06/14/24 12:00 06/14/24 12:00 06/14/24 12:00 06/14/24 12:00
Last Documented Vital Signs
Temp Pulse Resp BP Pulse Ox
98.0 F 78 24 135/73 96
06/14/24 12:00 06/14/24 13:45 06/14/24 13:45 06/14/24 13:19 06/14/24 13:45
<Daniel Stauffer PA-C - Last Filed: 06/14/24 14:39>
Orders/Labs/Results
Orders:
Orders
06/14/24 11:18
ECG [Electrocardiogram (*1)] Urgent
Reason for Study: Shortness of Breath
EKG- Treatment ONCE
06/14/24 12:06
Electrocardiogram (*1) Urgent
Reason for Study: Shortness of Breath
EKG- Treatment ONCE
CR Chest - 2 Views Urgent
Comment:
Reason For Exam: SOB
06/14/24 12:13
Complete Blood Count/With Diff Urgent
Comprehensive Metabolic Panel Urgent
NT-proBNP Urgent
Troponin I Urgent
06/14/24 13:28
Ipratropium/Albuterol Sulfate [Duoneb] 3 ml INH R NOW ONE
06/14/24 14:35
Furosemide [Lasix] 40 mg IV NOW STA
Abnormal Lab Results
06/14/24
12:13
Absolute Lymphs (auto) 0.9 L 10^3/uL
(1.2-3.4)
Absolute Monos (auto) 0.8 H 10^3/uL
(0.1-0.6)
Neutrophils % 77.7 H %
(42.2-75.2)
Lymphocytes % 10.2 L %
(20.5-51.1)
Monocytes % 9.6 H %
(1.7-9.3)
Chloride 96 L mmol/L
(98-107)
BUN 27 H mg/dl
(9-20)
Glucose 162 H mg/dl
(70-99)
06/14/24 12:13
06/14/24 12:13
Vital Signs
Initial and Last Documented VS:
Initial Vital Signs
Temp Pulse Resp BP Pulse Ox
98.0 F 81 16 146/83 87
06/14/24 12:00 06/14/24 12:00 06/14/24 12:00 06/14/24 12:00 06/14/24 12:00
Last Documented Vital Signs
Temp Pulse Resp BP Pulse Ox
98.0 F 78 24 135/73 96
06/14/24 12:00 06/14/24 13:45 06/14/24 13:45 06/14/24 13:19 06/14/24 13:45
<Daniel Stauffer PA-C - Last Filed: 06/14/24 14:39>
MDM/Problems Addressed
Differential Diagnosis Includes:
Patient here with fatigue unsteadiness shortness of breath with history of COPD CHF coronary artery disease. Differential could include CHF flare for COPD versus pneumonia
Subtle crackles and wheezes on exam. He is requiring oxygen currently. He is 87% on room air now requiring 3 L. Typically on 2 L of oxygen at night.
Will try DuoNeb. X-ray pending. Labs reviewed. Troponin is 0.027 BNP is 1270 which is improved from last time.
<Daniel Stauffer PA-C - Last Filed: 06/14/24 14:39>
*Critical Care Note
Total Time (30-74mins, 75-104mins- exclusive of procedures): Not Applicable
<Daniel Stauffer PA-C - Last Filed: 06/14/24 14:39>
Update Note
Update Note:
Patient with little improvement after DuoNeb. Review of the x-ray does show mild pulmonary edema with cardiomegaly. Patient is hypoxic here requiring 3 L of nasal oxygen. Suspect may be more CHF driven with a component of COPD. With his other
medical comorbidities including diabetes, coronary artery disease will keep patient in hospital for hypoxia likely secondary to CHF
ED Attending Note
<Elidia Pickett, CHEMICAL STRENGTH TESTER - Last Filed: 06/14/24 12:08>
-
Portions of this chart may have been created with voice recognition software.� Occasional wrong word or��sound alike� substitutions may have occurred due to the inherent limitations of voice recognition software.
Discharge Plan
Departure
Patient Disposition: Admit
Date of Disposition: 06/14/24
Time of Disposition: 14:38
Presentation/result/management discussed w/ accepting MD/DO: Hospitalist
Discharge Problem:
Hypoxia
Prescriptions:
No Action
aspirin 81 mg Tablet,Delayed Release (Dr/Ec)
81 mg PO DAILY
amlodipine 10 mg Tablet
5 mg PO DAILY
albuterol sulfate 90 mcg/actuation Hfa Aerosol Inhaler
2 puff INHALATION R Q4HPRN PRN (Reason: SOB, Wheezes)
metoprolol succinate 25 mg Tablet Extended Release 24 Hr
25 mg PO QPM
nitroglycerin 0.4 mg Tablet, Sublingual
0.4 mg SUBLINGUAL [id number] PRN (Reason: chest pain)
esomeprazole magnesium 40 mg Capsule,Delayed Release(Dr/Ec)
40 mg PO DAILY
Trelegy Ellipta 100-62.5-25 mcg blister with device
1 inh INHALATION R DAILY Qty: 0 0RF
spironolactone 25 mg Tablet
12.5 mg PO DAILY Qty: 30 0RF
potassium chloride 20 mEq tablet,ER particles/crystals
40 meq PO TID Qty: 90 0RF
furosemide [Lasix] 40 mg tablet
40 mg PO DAILY Qty: 30 0RF
ezetimibe 10 mg Tablet
10 mg PO DAILY
rosuvastatin 20 mg Tablet
20 mg PO DAILY
Short Acting Insulin As Needed
6 units SC TIDPRN PRN (Reason: insulin sliding scale TID)
Rx Instructions:
Unsure of name
hydralazine 10 mg tablet
5 mg PO BID
insulin glargine [Lantus Solostar U-100 Insulin] 300 UNITS/3 ML insulin pen
60 unit SC HS
prednisone 20 mg tablet
40 mg PO DAILY Qty: 10 0RF
prednisone 20 mg tablet
40 mg PO DAILY Qty: 6 0RF
cyclobenzaprine 10 mg tablet
10 mg PO BID PRN (Reason: back pain/spasms) Qty: 20 0RF
oxycodone-acetaminophen 5-325 mg tablet
1 tab PO Q8H PRN (Reason: Pain) Qty: 6 0RF
Referrals:
Marcus Smith MD [Family Provider] -
Interventions
Interventions:
*Risk Screen - Suicide Last Done: 06/14/24 12:00
*General Assessment Last Done: 06/14/24 13:47
*Neglect/Abuse Screening Last Done: 06/14/24 12:00
ED- Pulmonary Assessment Last Done: 06/14/24 13:47
ED- Cardiac Assessment Last Done: 06/14/24 13:47
Discharge Date and Time
Print Language: ALBANIAN
[2024-06-14 12:23] LABS: % Basophils 0.5 % (0-2); % Eosinophils 1.6 % (0-6); % Immature Granulocytes 0.4 % (0-0.5); % Lymphocytes 10.2 % (20.5-51.1); % Monocytes 9.6 % (1.7-9.3); % Neutrophils 77.7 % (42.2-75.2); Absolute Eosinophils 0.1 10^3/uL (0-0.7); Absolute Lymphocytes 0.9 10^3/uL (1.2-3.4); Absolute Monocytes 0.8 10^3/uL (0.1-0.6); Absolute Neutrophils 6.5 10^3/uL (1.4-6.5); Hematocrit 42.8 % (39.0-52.0); Hemoglobin 14.7 g/dL (13.0-18.0); Mean Corp Hgb Conc. 34.3 g/dL (33.0-37.0); Mean Corpuscular Hgb 30.3 pg (27.0-31.0); Mean Corpuscular Volume 88.2 fL (80.0-94.0); Mean Platelet Volume 9.8 fL (7.4-10.4); Nucleated Red Blood Cells % 0 % (-); Platelet Count 228 10^3/uL (130-400); Red Blood Cell Count 4.85 10^6/uL (4.70-6.10); Red Cell Dist. Width 13.1 % (11.5-14.5); White Blood Cell Count 8.4 10^3/uL (4.8-10.8)
[2024-06-14 12:41] LABS: ALT (SGPT) 16 U/L (0-50); AST (SGOT) 18 U/L (17-59); Albumin 4.1 g/dl (3.5-5.0); Alkaline Phosphatase 72 U/L (38-126); Blood Urea Nitrogen 27 mg/dl (9-20); Calcium 9.8 mg/dl (8.4-10.2); Carbon Dioxide 28 mmol/L (22-30); Chloride 96 mmol/L (98-107); Glucose 162 mg/dl (70-99); Potassium 3.9 mmol/L (3.5-5.1); Sodium 136 mmol/L (135-145); Total Bilirubin 0.9 mg/dl (0.2-1.3); Total Protein 7.2 g/dl (6.3-8.2); eGFR > 60.00
[2024-06-14 12:49] LABS: Troponin I 0.027 ng/ml
[2024-06-14 13:11] LABS: NT-proBNP 1270 pg/ml
[2024-06-14] MEDS: DUONEB 3 ML INH ×2 (13:37→21:12)
--- NOTE | 2024-06-14 14:57 | HPS.HSE ---
Family Physician
-
Family Physician: Marcus Smith
Chief Complaint
-
shortness of breath
History of Present Illness
68-year-old male past medical history of CAD status post CABG, pulmonary hypertension, COPD on 2 L baseline, hypertension, hypercholesteremia, diabetes, GERD, presenting with shortness of breath and dizziness for the past week. He also felt like
his head felt flushed at times. He denies significant cough. He denies fevers or chills or sore throat or runny nose. He denies lower extremity edema. He has gained 6 pounds in the past week perhaps. He denies any chest pain apart from
occasional tightness.
He recently quit smoking 2 days ago and was smoking half pack of cigarettes per day. He drinks 2 drinks of alcohol per day.
Medical History
Past Medical History
Past Medical History: Reports Other (CAD status post CABG, pulmonary hypertension, COPD on 2 L baseline, hypertension, hypercholesteremia, diabetes, GERD,)
Past Surgical History: Reports Other (Cardiac (Triple bypass, Right carotid surgery) and Orthopedic (Laminectomy L5-S1))
Social History
Tobacco: Former Smoker
Alcohol: None
Drug: None
Family History
Family History: Not pertinent
Allergies / Home Medications
Allergies reflects when Allergies were last updated in [facility].
Home Medications with original date entered in [facility]
Allergy/Medication List:
Allergies
Allergy/AdvReac Type Severity Reaction Status Date / Time
dapagliflozin [From Farxiga] Allergy renal Verified 06/14/24 12:03
insufficiency
pollen extracts Allergy sneezing Verified 06/14/24 12:03
spironolactone Allergy Dizziness Verified 06/14/24 12:03
and renal
insufficiency
valsartan Allergy Dizziness Verified 06/14/24 12:03
and renal
insufficiency
Home Medications
albuterol sulfate 90 mcg/actuation aerosol inhaler 2 puff inhalation R Q4HPRN PRN SOB, Wheezes 02/26/22
amlodipine 10 mg tablet 5 mg PO DAILY Blood Pressure 02/26/22
aspirin 81 mg tablet,delayed release 81 mg PO DAILY Blood Clot Prevention/Tx 02/26/22
metoprolol succinate 25 mg tablet,extended release 24 hr 25 mg PO QPM Heart Disease/Condition 02/17/23
esomeprazole magnesium 40 mg capsule,delayed release 40 mg PO DAILY Gastrointestinal Issue 03/13/23
nitroglycerin 0.4 mg sublingual tablet 0.4 mg sublingual [id number] PRN chest pain 03/13/23
fluticasone fur. 100 mcg-umeclid 62.5 mcg-vilant 25 mcg inhalat.powder (Trelegy Ellipta) 1 inh inhalation R DAILY Anti-inflammatory #0 ea 04/05/23
furosemide 40 mg tablet (Lasix) 40 mg PO DAILY #30 tabs 06/26/23
potassium chloride 20 mEq tablet,extended release(part/cryst) 40 meq (2 x 20 mEq) PO TID #90 tabs 06/26/23
spironolactone 25 mg tablet 12.5 mg (1/2 x 25 mg) PO DAILY #30 tabs 06/26/23
Short Acting Insulin As Needed 6 units SC TIDPRN PRN insulin sliding scale TID 09/29/23
ezetimibe 10 mg tablet 10 mg PO DAILY 09/29/23
hydralazine 10 mg tablet 5 mg PO BID 09/29/23
insulin glargine 100 unit/mL (3 mL) subcutaneous pen (Lantus Solostar U-100 Insulin) 60 unit SC HS Diabetes 09/29/23
rosuvastatin 20 mg tablet 20 mg PO DAILY 09/29/23
prednisone 20 mg tablet 40 mg (2 x 20 mg) PO DAILY #10 tabs 10/03/23
cyclobenzaprine 10 mg tablet 10 mg PO BID PRN back pain/spasms #20 tabs 11/04/23
oxycodone-acetaminophen 5 mg-325 mg tablet 1 tab PO Q8H PRN Pain #6 tabs 11/04/23
prednisone 20 mg tablet 40 mg (2 x 20 mg) PO DAILY #6 tabs 11/04/23
Review of Systems
-
History Source: Patient
A 12 point ROS was completed and negative except as noted: Yes
Constitutional: Reports No Symptoms
EENT: Reports No Symptoms
Respiratory: Reports See HPI
Cardiac: Reports See HPI
Abdomen/GI: Reports No Symptoms
: Reports No Symptoms
Musculoskeletal: Reports No Symptoms
Skin: Reports No Symptoms
Neurological: Reports No Symptoms
Endocrine: Reports No Symptoms
Hematologic/Lymphatic: Reports No Symptoms
Psych: Reports No Symptoms
Physical Exam
Vital Signs
Vital Signs
Temp Pulse Resp BP Pulse Ox
98.0 F 78 24 135/73 96
06/14/24 12:00 06/14/24 13:45 06/14/24 13:45 06/14/24 13:19 06/14/24 13:45
Physical Exam
General: Well Developed, Well Nourished and No Apparent Distress
HEENT: NormoCephalic, Moist mucous membranes and Atraumatic
Respiratory: Rales
Cardiac: S1/S2 and Regular Rhythm; No Murmur or Rub
GI: Soft, Non Tender, Non Distended and Normal Bowel Sounds; No Organomegaly
Rectal: Deferred by Provider
Musculoskeletal: No Clubbing, No Cyanosis and No Edema
Skin: No Rash
Neuro: Nonfocal/grossly intact
Laboratory Results
-
06/14/24 12:13
06/14/24 12:13
Laboratory Results
Total Bilirubin 0.9 mg/dl (0.2-1.3) 06/14/24 12:13
AST 18 U/L (17-59) 06/14/24 12:13
ALT 16 U/L (0-50) 06/14/24 12:13
Alkaline Phosphatase 72 U/L (38-126) 06/14/24 12:13
Troponin I 0.027 ng/ml 06/14/24 12:13
Data Reviewed
-
Lab Data: Labs Reviewed by me
Old Records: Reviewed
Impression/Plan
-
IMPRESSION:
PLAN:
# Acute HFpEF exacerbation
# Acute COPD exacerbation
# Chronic COPD on 2 L baseline
-Chest x-ray shows interstitial opacities with similar appearance from previously, likely secondary to chronic interstitial lung disease, mild pulm edema possible
-Bilateral lower lobe crackles something like pulmonary fibrosis on examination, no significant wheezing at this time
-Cardiac BNP 1200 improved from 3700 last year
-Patient requiring 3 L oxygen now
-Check I's and O's, daily weights
-40 IV Lasix daily
-DuoNebs every 6 hours
-Dexamethasone 4 mg every 12
-Check COVID and influenza
CAD status post CABG
-Continue aspirin
-Continue metoprolol
Pulmonary hypertension
Essential hypertension
-Continue amlodipine, hydralazine
Recent smoker
-Quit smoking few days ago, smoking half pack of cigarettes per day
Hypercholesterolemia
-Continue Zetia
-Continue statin
Type 2 diabetes
-Continue Lantus
GERD
-Continue esomeprazole
Full code
DVT prophylaxis�heparin
Cardiac/diabetic diet
[2024-06-14] MEDS: LASIX 40 MG IV (15:31)
--- NOTE | 2024-06-14 20:00 | PTCARENOTE ---
Patient arrives from ED on stretcher. Patient ambulated into room with cane. Patient on 3LNC (2L is his baseline). Pt seems +TRAORE, sats 92%. Pts vital signs obtained, pt assessed(see flowsheets). Pt oriented to room, call camp within reach. Plan
reviewed, no questions at this time.
[2024-06-14] MEDS: PERCOCET 5/325 1 TABLET PO (20:32)
[2024-06-14] MEDS: TOPROL XL 25 MG PO (20:32)
[2024-06-14] MEDS: KCL 40 MEQ PO (20:32)
[2024-06-14] MEDS: NEURONTIN 300 MG PO (20:32)
[2024-06-14] MEDS: DECADRON 4 MG IV (20:32)
[2024-06-14] MEDS: HEPARIN 5000 UNITS SC (20:32)
[2024-06-14 20:38] LABS: COVID-19 Antigen Negative (Negative)
[2024-06-14] MEDS: DUONEB INH (21:11)
[2024-06-14 22:02] LABS: Glucose - Point of Care 274 mg/dl (70-99)
[2024-06-14] MEDS: LANTUS 0.4 UNITS SC (22:15)
[2024-06-14] MEDS: MELATONIN 5 MG PO (23:00)
[2024-06-15] VITALS (7 sets, daily range): BP systolic 105–139; BP diastolic 54–64; BMI 25.7
[2024-06-15 07:17] LABS: Glucose - Point of Care 278 mg/dl (70-99)
[2024-06-15 07:49] LABS: % Basophils 0.2 % (0-2); % Eosinophils 0.2 % (0-6); % Immature Granulocytes 0.7 % (0-0.5); % Lymphocytes 7.4 % (20.5-51.1); % Monocytes 4.1 % (1.7-9.3); % Neutrophils 87.4 % (42.2-75.2); Absolute Lymphocytes 0.4 10^3/uL (1.2-3.4); Absolute Monocytes 0.2 10^3/uL (0.1-0.6); Absolute Neutrophils 5.1 10^3/uL (1.4-6.5); Mean Corp Hgb Conc. 34.1 g/dL (33.0-37.0); Mean Corpuscular Hgb 29.9 pg (27.0-31.0); Mean Corpuscular Volume 87.4 fL (80.0-94.0); Mean Platelet Volume 10.4 fL (7.4-10.4); Nucleated Red Blood Cells % 0 % (-); Platelet Count 233 10^3/uL (130-400); Red Blood Cell Count 4.69 10^6/uL (4.70-6.10); Red Cell Dist. Width 12.9 % (11.5-14.5); White Blood Cell Count 5.8 10^3/uL (4.8-10.8)
[2024-06-15] MEDS: DUONEB 3 ML INH ×4 (07:52→20:33)
[2024-06-15 08:23] LABS: ALT (SGPT) 14 U/L (0-50); AST (SGOT) 15 U/L (17-59); Albumin 3.8 g/dl (3.5-5.0); Alkaline Phosphatase 73 U/L (38-126); Blood Urea Nitrogen 35 mg/dl (9-20); Calcium 9.4 mg/dl (8.4-10.2); Carbon Dioxide 28 mmol/L (22-30); Chloride 93 mmol/L (98-107); Estimated Creatinine Clearance 41 ml/min; Glucose 275 mg/dl (70-99); Potassium 4.2 mmol/L (3.5-5.1); Sodium 134 mmol/L (135-145); Total Bilirubin 0.7 mg/dl (0.2-1.3); Total Protein 6.7 g/dl (6.3-8.2); eGFR 47.23
--- NOTE | 2024-06-15 08:37 | W.PN.HOSP.TC ---
Today's Communication/Plan
-
see bold
Assessment / Plan
Assessment / Plan
68-year-old male past medical history of CAD status post CABG, pulmonary hypertension, COPD on 2 L baseline, hypertension, hypercholesteremia, diabetes, GERD, presenting with shortness of breath and dizziness for the past week. He also felt like
his head felt flushed at times. He denies significant cough. He denies fevers or chills or sore throat or runny nose. He denies lower extremity edema. He has gained 6 pounds in the past week perhaps. He denies any chest pain apart from
occasional tightness. He recently quit smoking 2 days ago and was smoking half pack of cigarettes per day. He drinks 2 drinks of alcohol per day
# Acute COPD exacerbation
# Chronic COPD on 2 L baseline
-Chest x-ray shows interstitial opacities with similar appearance from previously, likely secondary to chronic interstitial lung disease, mild pulm edema possible
-Bilateral lower lobe crackles something like pulmonary fibrosis on examination, no significant wheezing at this time
-Patient requiring 3 L oxygen, wean oxygen as tolerated
-Continue IV dexamethasone, bronchodilators
-Trend creatinine, trend daily weights
# Acute HFpEF exacerbation
-Currently on IV Lasix, will hold secondary to elevated creatinine
#Acute kidney injury superimposed on stage II chronic kidney disease
Creatinine 1.6 today, was 1.3 upon admission
Hold lasix/spironolactone, trend creatinine
Type 2 diabetes with steroid-induced hyperglycemia
-Increase Lantus, start Premeal insulin
CAD status post CABG
-Continue aspirin
-Continue metoprolol
Pulmonary hypertension
Essential hypertension
-Continue amlodipine, hydralazine
Recent smoker
-Quit smoking few days ago, smoking half pack of cigarettes per day
Hypercholesterolemia
-Continue Zetia
-Continue statin
GERD
-Continue esomeprazole
DVT prophylaxis�subcu heparin
Full code
Total time spent to see the patient on the floor, examine the patient, review data and lab results, discuss treatment plan with patient, nursing staff around 52 minutes.
Physical Exam
General: No acute distress
HEENT: Normocephalic, Atraumatic, EOMI, MMM
Respiratory: Bibasilar crackles
Cardiac: Normal S1/S2, Regular Rate and Rhythm
GI: Soft, Nontender, Nondistended, Normal Bowel Sounds
Extremities: No Clubbing, Cyanosis, or Edema
Neuro: Nonfocal/Grossly Intact
Anticipated Discharge: 24 - 48 hours
Subjective/Interval History
-
Date of Service: June 15, 2024
Patient reports breathing is improved. He continues to have a productive cough. No fever, no vomiting.
Objective Data
-
Labs:
Laboratory Results
06/15/24
06:38
WBC 5.8
Hgb 14.0
Hct 41.0
Plt Count 233
Sodium 134 L
Potassium 4.2
Chloride 93 L
Carbon Dioxide 28
BUN 35 H
Creatinine 1.6 H
Glucose 275 H
Calcium 9.4
Total Bilirubin 0.7
AST 15 L
ALT 14
Alkaline Phosphatase 73
Vital Signs:
Vital Signs
Temp Pulse Resp BP Pulse Ox
97.7 F 55 18 109/54 95
06/15/24 07:35 06/15/24 07:35 06/15/24 07:35 06/15/24 07:35 06/15/24 07:35
I&O
06/14/24 06/15/24 06/16/24
06:59 06:59 06:59
Intake Total 720 / 720
Balance 720 / 720
[2024-06-15] MEDS: PROTONIX 40 MG PO (09:06)
[2024-06-15] MEDS: LASIX 40 MG IV (09:06)
[2024-06-15] MEDS: CRESTOR 20 MG PO (09:07)
[2024-06-15] MEDS: HEPARIN 5000 UNITS SC ×2 (09:08→20:37)
[2024-06-15] MEDS: KCL 40 MEQ PO (09:08)
[2024-06-15] MEDS: ASPIR LOW (ENTERIC COATED) 81 MG PO (09:08)
[2024-06-15] MEDS: ALDACTONE 12.5 MG PO (09:10)
[2024-06-15] MEDS: ZETIA 10 MG PO (09:12)
[2024-06-15] MEDS: DECADRON 4 MG IV ×2 (09:14→20:36)
[2024-06-15] MEDS: NEURONTIN 300 MG PO ×3 (09:16→20:36)
[2024-06-15] MEDS: NORVASC 5 MG PO (09:30)
--- NOTE | 2024-06-15 10:29 | CM ---
Met with pt at bedside
Pt reports he lives with his mother in a 1 story home; 4 steps to enter, 10 steps to bed
Independent with ADL's, ambulates with quad cane
DME - Oxygen concentrator, quad cane, rolling walker
SNF - denies past hx
HH - denies past hx
Has ride at discharge
PCP - Marcus Smith
Pharm -[facility] on [address]
CM will follow for discharge needs
Plan - anticipate home no needs vs w/VN
[2024-06-15 11:11] LABS: Glucose - Point of Care 484 mg/dl (70-99)
[2024-06-15 11:46] LABS: Hepatitis C Antibody Negative (Negative)
[2024-06-15 11:58] LABS: Glucose 538 mg/dl (70-99)
[2024-06-15] MEDS: NOVOLOG FLEXPEN 14 UNITS SC (12:13)
[2024-06-15] MEDS: NOVOLOG FLEXPEN 15 UNITS SC (12:14)
[2024-06-15] MEDS: LANTUS 0.15 UNITS SC (12:57)
[2024-06-15 14:26] LABS: Glucose - Point of Care 363 mg/dl (70-99)
[2024-06-15 17:03] LABS: Glucose - Point of Care 221 mg/dl (70-99)
[2024-06-15] MEDS: TOPROL XL 25 MG PO (17:08)
[2024-06-15] MEDS: NOVOLOG FLEXPEN 22 UNITS SC (17:09)
[2024-06-15] MEDS: NOVOLOG FLEXPEN-MODERATE RESISTANCE 3 UNITS SC (17:10)
[2024-06-15] MEDS: PERCOCET 5/325 1 TABLET PO (20:36)
[2024-06-15] MEDS: MELATONIN 5 MG PO (20:36)
[2024-06-15 21:56] LABS: Glucose - Point of Care 251 mg/dl (70-99)
[2024-06-15] MEDS: LANTUS 0.5 UNITS SC (22:31)
[2024-06-16 03:52] VITALS: BP 109/55
[2024-06-16 07:00] VITALS: BP 118/74
[2024-06-16] MEDS: DUONEB 3 ML INH ×2 (07:03→11:32)
[2024-06-16 07:51] LABS: NT-proBNP 560 pg/ml
[2024-06-16 08:06] LABS: Glucose - Point of Care 215 mg/dl (70-99)
[2024-06-16 08:18] LABS: Blood Urea Nitrogen 44 mg/dl (9-20); Estimated Creatinine Clearance 44 ml/min; Glucose 241 mg/dl (70-99)
[2024-06-16 08:19] LABS: Calcium 9.3 mg/dl (8.4-10.2); Carbon Dioxide 27 mmol/L (22-30); Chloride 93 mmol/L (98-107); Magnesium 1.4 mg/dl (1.6-2.3); Potassium 3.8 mmol/L (3.5-5.1); Sodium 134 mmol/L (135-145); eGFR 51.03
[2024-06-16] MEDS: NOVOLOG FLEXPEN-MODERATE RESISTANCE 3 UNITS SC (08:38)
[2024-06-16] MEDS: NOVOLOG FLEXPEN 22 UNITS SC (08:40)
[2024-06-16] MEDS: ZETIA 10 MG PO (08:41)
[2024-06-16] MEDS: CRESTOR 20 MG PO (08:41)
[2024-06-16] MEDS: ASPIR LOW (ENTERIC COATED) 81 MG PO (08:41)
[2024-06-16] MEDS: NORVASC 5 MG PO (08:42)
[2024-06-16] MEDS: PROTONIX 40 MG PO (08:42)
[2024-06-16] MEDS: NEURONTIN 300 MG PO (08:42)
[2024-06-16] MEDS: DECADRON 4 MG IV (08:42)
[2024-06-16] MEDS: HEPARIN 5000 UNITS SC (08:42)
[2024-06-16] MEDS: LANTUS 0.1 UNITS SC ×2 (08:45→09:42)
--- NOTE | 2024-06-16 09:14 | W.PN.HOSP.TC ---
Today's Communication/Plan
-
Stable for discharge today
Assessment / Plan
Assessment / Plan
68-year-old male past medical history of CAD status post CABG, pulmonary hypertension, COPD on 2 L baseline, hypertension, hypercholesteremia, diabetes, GERD, presenting with shortness of breath and dizziness for the past week. He also felt like
his head felt flushed at times. He denies significant cough. He denies fevers or chills or sore throat or runny nose. He denies lower extremity edema. He has gained 6 pounds in the past week perhaps. He denies any chest pain apart from
occasional tightness. He recently quit smoking 2 days ago and was smoking half pack of cigarettes per day. He drinks 2 drinks of alcohol per day
# Acute asthma vs ILD exacerbation
-PFTs on 02/03/24 -no evidence of COPD. Shows mild restrictive lung defect with significant bronchodilator response seen. Suspect reactive airway disease versus asthma. Also shows reduced gas exchange capacity concerning for pulmonary vascular
disease versus interstitial lung disease versus right-sided heart failure.
-Chest x-ray shows interstitial opacities with similar appearance from previously, likely secondary to chronic interstitial lung disease, mild pulm edema possible
-Bilateral lower lobe crackles something like pulmonary fibrosis on examination, no significant wheezing at this time
-Resolved, now on RA, was requiring 3 L oxygen. Patient wears 2 L at night at baseline
-Resolved on IV dexamethasone, bronchodilators
-Medically stable for discharge on prednisone 40 mg daily for 3 days
# Acute HFpEF exacerbation
-S/p IV Lasix, Lasix held yesterday secondary to elevated creatinine
-Recommend holding Lasix for 3 days upon discharge, may resume on 06/19/2024
#Acute kidney injury superimposed on stage II chronic kidney disease
Creatinine 1.5, was 1.6, was 1.3 upon admission
Hold lasix/spironolactone, may resume 06/19/2024
Type 2 diabetes with steroid-induced hyperglycemia
-Lantus and NovoLog increased
-Recommend patient taking increased insulin regimen as following due to being released on prednisone:
Take prednisone 40 mg daily for 3 days through 06/19/24.
Take glargine/basaglar 50 units at night through 06/19/24, then resume previous dose.
Take novolog 16 units before meals through 06/19/24, then
Take novolog 10 units with meals on 06/20/24, then resume previous dose.
CAD status post CABG
-Continue aspirin
-Continue metoprolol
Pulmonary hypertension
Essential hypertension
-Continue amlodipine, hydralazine
Recent smoker
-Quit smoking few days ago, smoking half pack of cigarettes per day
Hypercholesterolemia
-Continue Zetia
-Continue statin
GERD
-Continue esomeprazole
DVT prophylaxis�subcu heparin
Full code
Physical Exam
General: No acute distress
HEENT: Normocephalic, Atraumatic, EOMI, MMM
Respiratory: Bibasilar crackles
Cardiac: Normal S1/S2, Regular Rate and Rhythm
GI: Soft, Nontender, Nondistended, Normal Bowel Sounds
Extremities: No Clubbing, Cyanosis, or Edema
Neuro: Nonfocal/Grossly Intact
Anticipated Discharge: Today
Subjective/Interval History
-
Date of Service: June 16, 2024
Patient reports his shortness of breath has resolved. He is breathing is almost back to baseline. He is now on room air. He continues to have a cough. No fever, no vomiting.
Objective Data
-
Labs:
Laboratory Results
06/16/24
06:41
Sodium 134 L
Potassium 3.8
Chloride 93 L
Carbon Dioxide 27
BUN 44 H
Creatinine 1.5 H
Glucose 241 H
Calcium 9.3
Vital Signs:
Vital Signs
Temp Pulse Resp BP Pulse Ox
97.5 F 65 14 118/74 97
06/16/24 07:00 06/16/24 07:05 06/16/24 07:05 06/16/24 07:00 06/16/24 07:05
I&O
06/15/24 06/16/24 06/17/24
06:59 06:59 06:59
Intake Total 720 / 720 960 / 960
Balance 720 / 720 960 / 960
[2024-06-16] MEDS: MAGNESIUM SULFATE 50 IV (09:42)
[2024-06-16 11:00] VITALS: BP 141/62
[2024-06-16 12:43] LABS: Glucose - Point of Care 108 mg/dl (70-99)
[2024-06-16] MEDS: NOVOLOG FLEXPEN 25 UNITS SC (12:56)
[2024-06-16] MEDS: NOVOLOG FLEXPEN-MODERATE RESISTANCE SC (13:26)
--- NOTE | 2024-06-16 14:33 | W.DCSUMMARY ---
Discharge Summary
Discharge Data
Date of Admission: 06/14/24
Date of Discharge: 06/16/24
-
Pending Results: No
Hospital Course
Discharge diagnosis:
Probable interstitial lung disease exacerbation versus asthma exacerbation
Acute on chronic hypoxic respiratory failure
Acute heart failure with a preserved ejection fraction
Acute kidney injury superimposed on stage II chronic kidney disease
Type 2 diabetes with steroid-induced hyperglycemia
Pulmonary arterial hypertension
Coronary artery disease status post surgery
Essential hypertension
Cigarette nicotine dependency, quit a few days ago
Hyperlipidemia
Gastroesophageal reflux disease
Chest x-ray:
Interstitial opacities with a similar appearance compared to the chest radiograph from 06/22/2023, likely secondary to a chronic interstitial lung disease. Mild pulmonary edema would be an alternative consideration.
Hospital course:
68-year-old male with a past medical history of CHF, diabetes, pulmonary hypertension, CAD, and reported COPD on 2 L of oxygen at baseline was admitted for acute on chronic hypoxic respiratory failure. Patient does have cigarette nicotine
dependency, he reports quitting a few days ago.
It is unclear if patient actually has COPD. He reports a history of COPD requiring 2 L of oxygen at night at baseline. His last PFTs in February 2024 showed no evidence of COPD. It showed mild restrictive lung defect with significant
bronchodilator response seen, which was suspicious for reactive airway disease versus asthma. It also showed reduced gas exchange capacity concerning for pulmonary vascular disease versus interstitial lung disease versus right-sided heart failure.
His Chest x-ray in the hospital showed interstitial opacities with similar appearance from previously, likely secondary to chronic interstitial lung disease, mild pulm edema possible. His exam revealed coarse crackles like Velcro, consistent with
ILD. Patient was treated for probable ILD exacerbation with IV steroids and bronchodilators.
There was also suspected mild CHF exacerbation. He did receive 1 dose of IV Lasix, his creatinine increased to 1.6, from 1.3. His creatinine was 1.5 on the day of discharge. Recommend he hold his Lasix, spironolactone, and potassium chloride for
3 days upon discharge, he may resume on 06/19/2024.
Patient's hospital course was complicated by steroid-induced hyperglycemia. His insulin regimen was increased, his blood sugars improved.
Patient's hypoxia resolved. He initially required 4 L of oxygen upon admission. He only wears 2 L at night. He was successfully weaned to room air, and did not desaturate with activity.
Patient is medically stable for discharge. He will be discharged on prednisone for 3 more days, with instructions to increase his insulin regimen while taking his steroids. He needs to follow-up with his primary care doctor in 1 week.
Disposition: Home self-care
Discharge planning: Required 51 minutes
Discharge Plan
-
Patient Disposition: Home (Routine Discharge)
Discharge Diagnosis/Procedures: Acute hypoxia, asthma versus interstitial lung disease exacerbation, diabetes, steroid-induced hyperglycemia
Condition: Good
Diet: Diabetic, Carb Controlled
Activity: As tolerated
Driving Restrictions: As prior to admission
Activity Restrictions/Additional Instructions:
Take prednisone 40 mg daily for 3 days through 06/19/24.
Take glargine/basaglar 50 units at night through 06/19/24, then resume previous home dose.
Take novolog 16 units with meals through 06/19/24, then
take novolog 10 units with meals on 06/20/24, then resume previous home dose.
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
Instructions: *[facility] Heart Failure Instructions
Referrals:
Marcus Smith MD [Family Provider] - in one week
Prescriptions:
New
prednisone 20 mg tablet
20 mg PO DAILY 3 Days Qty: 3 0RF
Continued
aspirin 81 mg Tablet,Delayed Release (Dr/Ec)
81 mg PO DAILY
amlodipine 10 mg Tablet
5 mg PO DAILY
albuterol sulfate 90 mcg/actuation Hfa Aerosol Inhaler
2 puff INHALATION R Q4HPRN PRN (Reason: SOB, Wheezes)
esomeprazole magnesium 40 mg Capsule,Delayed Release(Dr/Ec)
40 mg PO DAILY
ezetimibe 10 mg Tablet
10 mg PO DAILY
rosuvastatin 20 mg Tablet
20 mg PO DAILY
oxycodone-acetaminophen 5-325 mg Tablet
1 tab PO HSPRN PRN (Reason: severe pains)
gabapentin 300 mg Capsule
300 mg PO TID
metoprolol succinate [Toprol XL] 25 mg Tablet Extended Release 24 Hr
25 mg PO QPM
insulin lispro [Humalog KwikPen Insulin] 100 unit/mL Insulin Pen
1 sliding scale dose SC TIDPRN PRN (Reason: high sugar levels)
insulin glargine [Basaglar KwikPen U-100 Insulin] 100 unit/mL (3 mL) Insulin Pen
40 unit SC HS
Opsumit 10 mg Tablet
10 mg PO DAILY
tadalafil (pulm. hypertension) 20 mg Tablet
40 mg PO DAILY
Held
spironolactone 25 mg Tablet
12.5 mg PO DAILY Qty: 30 0RF
Hold Instructions: Resume on 06/19/24.
potassium chloride 20 mEq tablet,ER particles/crystals
40 meq PO TID Qty: 90 0RF
Hold Instructions: Resume on 06/19/24.
furosemide [Lasix] 40 mg tablet
40 mg PO DAILY Qty: 30 0RF
Hold Instructions: Resume on 06/19/24.
Discharge Orders:
Discharge Patient (As Directed); Ordered 06/16/24
Ordered By: Mohit Navarro
Discharge Date and Time
Discharge Date/Time: 06/16/24 15:19
Print Language: [place]
[2024-06-16 15:09] VITALS: BP 112/86
--- NOTE | 2024-06-16 15:16 | CM ---
Patient with Hx COPD. O2 weaned off - Room air. Per nursing; ambulatory in room by self.
Met with patient who was preparing for discharge.
The patient says he feels ready for discharge home today. IMM completed.
Offered VN for HF Education and patient declined, saying he already has been given that info. His mother will provide transport home today.
No CM d/c needs identified.
Plan home today.
== END 2024-06-16 15:19 | disposition home or self-care (01) | DRG 291 ==
LOC: 1 ACUTE 15:33
PROVIDERS: Registered Nurse; ADMITTING PHYSICIAN Hospitalist; ATTENDING PHYSICIAN Family Medicine; EMERGENCY PHYSICIAN Emergency Medicine; FAMILY PHYSICIAN Internal Medicine Geriatric Medicine
DX: I13.0 Hypertensive heart and chronic kidney disease with heart failure and stage 1 through stage 4 chronic kidney disease, or unspecified chronic kidney disease (principal); I50.33 Acute on chronic diastolic (congestive) heart failure; N17.9 Acute kidney failure, unspecified; Z79.4 Long term (current) use of insulin; F17.200 Nicotine dependence, unspecified, uncomplicated; N18.2 Chronic kidney disease, stage 2 (mild); K21.9 Gastro-esophageal reflux disease without esophagitis; E11.22 Type 2 diabetes mellitus with diabetic chronic kidney disease
CPT/HCPCS: 71046; 80048; 80053; 82947; 82962; 83735; 83880; 84484; 85025; 86803; 87502; 87811; 93005; 94640; 99285

== ENCOUNTER 2024-06-29 18:53 | Inpatient (IN) | payer OTHER, MEDICARE, SELFPAY ==
[2024-06-29] VITALS (8 sets, daily range): BP systolic 107–153; BP diastolic 52–85; BMI 26.3
[2024-06-29 13:11] LABS: % Basophils 0.6 % (0-2); % Immature Granulocytes 0.4 % (0-0.5); % Lymphocytes 9.7 % (20.5-51.1); % Monocytes 7.8 % (1.7-9.3); % Neutrophils 78.5 % (42.2-75.2); Absolute Basophils 0.1 10^3/uL (0-0.2); Absolute Eosinophils 0.3 10^3/uL (0-0.7); Absolute Lymphocytes 0.8 10^3/uL (1.2-3.4); Absolute Monocytes 0.6 10^3/uL (0.1-0.6); Absolute Neutrophils 6.5 10^3/uL (1.4-6.5); Hematocrit 40.1 % (39.0-52.0); Hemoglobin 13.5 g/dL (13.0-18.0); Mean Corp Hgb Conc. 33.7 g/dL (33.0-37.0); Mean Corpuscular Hgb 29.4 pg (27.0-31.0); Mean Corpuscular Volume 87.4 fL (80.0-94.0); Mean Platelet Volume 9.8 fL (7.4-10.4); Nucleated Red Blood Cells % 0 % (-); Platelet Count 192 10^3/uL (130-400); Red Blood Cell Count 4.59 10^6/uL (4.70-6.10); Red Cell Dist. Width 13.2 % (11.5-14.5); White Blood Cell Count 8.3 10^3/uL (4.8-10.8)
[2024-06-29 13:29] LABS: ALT (SGPT) 20 U/L (0-50); AST (SGOT) 19 U/L (17-59); Albumin 3.8 g/dl (3.5-5.0); Alkaline Phosphatase 80 U/L (38-126); Blood Urea Nitrogen 30 mg/dl (9-20); Calcium 9.5 mg/dl (8.4-10.2); Carbon Dioxide 20 mmol/L (22-30); Chloride 102 mmol/L (98-107); Glucose 172 mg/dl (70-99); Potassium 3.6 mmol/L (3.5-5.1); Sodium 136 mmol/L (135-145); Total Bilirubin 0.7 mg/dl (0.2-1.3); Total Protein 6.8 g/dl (6.3-8.2); eGFR > 60.00
[2024-06-29 13:39] LABS: NT-proBNP 1120 pg/ml; Troponin I 0.016 ng/ml
--- NOTE | 2024-06-29 15:11 | ED.GENMED ---
History of Present Illness
General
Chief Complaint: Breathing Problem
Source: patient and physician
Exam Limitations: none
Time Seen by Provider: 06/29/24 15:02
Nursing documentation reviewed up to this point in time: agreed with
History of Present Illness
History of Present Illness:
68-year-old male presents to the emergency room due to cough and shortness of breath. History of pulmonary hypertension, COPD, for which she was recently hospitalized. His pulse oximetry was 77%, he was placed on oxygen by Dr. Farheen Bundy,
and sent to the emergency department.
Past History
Past History
ED Past Medical History: CAD, COPD, GERD, HTN, Hypercholesterolemia, IDDM and Other (Dizzines, Sciatic pain, PNA, Anemia, )
ED Past Surgical History: Cardiac (Triple bypass, Right carotid surgery) and Orthopedic (Laminectomy L5-S1)
Social History
Tobacco: Smoker
Alcohol: Daily (Whisky 2-3)
Drug: None
Personal: Single
Living: alone
Employment: Not employed
Family History
Family History: Negative Diabetes, Hypertension or CAD
Review of Systems
Review of Systems
Allergies reviewed?: Yes
All Other Systems: Not applicable
Constitutional: Reports no symptoms
EENT: Reports no symptoms
Respiratory: Reports cough and trouble breathing
Cardiac: Reports no symptoms
ABD/GI: Reports no symptoms
: Reports no symptoms
Musculoskeletal: Reports no symptoms
Skin: Reports no symptoms
Neurological: Reports no symptoms
Endocrine: Reports no symptoms
Hematologic/Lymphatic: Reports no symptoms
Psychiatric: Reports no symptoms
Phy Exam
Physical Exam
Physical Exam:
Physical Exam
General: no apparent distress, not acutely ill
Neck: supple. no meningeal signs. normal posterior pharynx
Heart: s1/s2 regular rate and rhythm, no murmur. equal radial
pulses.
HEENT: Pupils equal round reactive to light, EOMI
Lungs: moderate respiratory distress. Decreased breath sounds, wheezing bilaterally
Abdomen: normal bowel sounds. not tender. no CVAT
Neuro: alert and oriented. no focal neurological deficits cranial nerves II through XII intact
Skin: no rash
Psychiatric: well kept. interactive and cooperative
Extremities: no edema. no calf tenderness. negative homans. good distal pulses
Scores
Heart Failure Risk
Heart Failure Risk Score: Yes
History of Stroke or TIA: No
History of intubation for respiratory distress: No
Heart rate on ED arrival >/= 110: No
SaO2 <90% on arrival on room air: Yes
HR >/=110 during 3min walk test (or too ill to perform test): Yes
ECG has acute ischemic changes: No
Urea >/=12mmol/L (BUN 33.6mg/dL): No
Serum CO2>/=35mmol/L: No
Troponin I or T elevated to GA Level (0.4mg/dL): No
NT-proBNP >/=5,000ng/L (5,000pg/ml): No
HF Risk Score: 3
Admission Status: HIGH RISK 15.9% Consider SNF treatment or admission to hospital
Course
Orders/Labs/Results
Orders:
Orders
06/29/24 12:43
EKG [Electrocardiogram (*1)] Urgent
Reason for Study: Shortness of Breath
EKG- Treatment ONCE
CR Chest - 2 Views Urgent
Comment:
Reason For Exam: SOB, low pulse Ox
06/29/24 13:00
Complete Blood Count/With Diff Urgent
Comprehensive Metabolic Panel Urgent
Pro-BNP [NT-proBNP] Urgent
Troponin I Urgent
06/29/24 Dinner
1800 calorie (15 carb) Diabetic
At Your Request: Full Participation
Does patient need a safe tray?: No
06/29/24 15:16
Ipratropium/Albuterol Sulfate [Duoneb] 3 ml INH R NOW STA
06/29/24 16:41
Furosemide [Lasix] 40 mg IV NOW STA
06/29/24 17:46
CARDIOLOGY CONSULT Routine
Consulting Provider: Kelvin Gandhi
Was physician already notified: Yes
Reason for consult: acute on chronic chf
06/29/24 17:49
PULMONARY CONSULT Routine
Consulting Provider: Frances Harvey
Was physician already notified: Yes
Reason for consult: acute chf, pulm htn
06/29/24 17:50
Admit/Transfer Patient As Directed
Co-Sign Provider:
Level of Care: Inpatient admission
Assign to:: Telemetry
Physician / Group: michael harrison
Diagnosis: acute chf, hypoxia , pum htn
Reason for Telemetry: Acute Heart Failure
Date to Stop Telemetry: 07/02/24
Time to Stop Telemetry: 11:00
Reason for Hospitalization: acute chf, hypoxia , pum htn
Expected length of stay greater than two midnights?: Yes
ELOS- Estimated Length of Stay in days: 4
I certify the patient meets the requirements for IP care: Yes
Code Status As Directed
Resuscitation Status: Full Code
06/29/24 17:57
PRN Pain Medication Management As Directed
May give lesser potent ordered pain med per pt: Yes
preference::
Protocol:: Medication orders for pain may be administered in a
manner that supports deferring to patient preference
when the pt is:
- Requesting an ordered lesser potent pain medication.
Least to most potent pain medications are defined
as: acetaminophen < NSAID < tramadol < opioids
(morphine, oxycodone, hydromorphone).
- Requesting a lesser dose of the same medication IF
ORDERED.
- Requesting a less intrusive route of administration
if both routes are prescribed by the provider (PO <
IV).
06/29/24 20:54
Albuterol [ProAIR HFA INHALER] 2 puff INH R Q4HPRN PRN
Dextrose 50%-Water [Dextrose 50% Syringe] 12.5 grams IV [id number] PRN
Glucagon [GlucaGen] 1 mg IM PRN PRN
Heparin 5,000 units SC Q12
Metoprolol Xl [Toprol Xl] 25 mg PO QPM
Oxycodone/Acetaminophen [Percocet 5/325] 1 tablet PO HSPRN PRN
06/29/24 20:54
Activity As Directed
Activity Level: As Tolerated
Bedside Glucose Monitoring As Directed
Frequency: AC&HS
Additional Instructions:: Change to q6h if pt on TPN, tube feeding or not eating
Intake/ Output As Directed
Frequency: Per unit guidelines
Vital Signs As Directed
Frequency: Per unit guidelines
Weight As Directed
Frequency: Daily
O2 Therapy [RESP] Routine
Nasal Cannula Liter Flow: 2 LPM
Titrate/Wean O2 to maintain O2 sat greater than (%): 92
Pulse Ox/spot Check [RESP] Routine
Quantity: 1
Pt Eval And Treat Routine
Activity Level: As Tolerated
DX Deep Vein Thrombosis Video Routine
06/29/24 22:00
Gabapentin [Neurontin] 300 mg PO TID
Insulin Glargine Lantus [Lantus] 30 units Subcutaneous Insulin Syringe [Syringe-Insulin] 0 unit SC HS
06/30/24 06:00
Complete Blood Count/With Diff IN AM
Comprehensive Metabolic Panel IN AM
Glycohemoglobin (HgbA1c) IN AM
06/30/24 07:30
Insulin Aspart Corrective Low [Novolog Flexpen-Low Resistance] See Protocol SC AC
06/30/24 08:00
Aspirin Low Dose EC [Aspir Low (Enteric Coated)] 81 mg PO DAILY
Ezetimibe [Zetia] 10 mg PO DAILY
Furosemide [Lasix] 40 mg IV DAILY
Pantoprazole [Protonix] 40 mg PO DAILY
Rosuvastatin Calcium [Crestor] 20 mg PO DAILY
Spironolactone [Aldactone] 12.5 mg PO DAILY
macitentan [Opsumit] See Dose Instructions PO DAILY
tadalafil (pulm. hypertension) See Dose Instructions PO DAILY
07/01/24 06:00
Complete Blood Count/With Diff IN AM
Comprehensive Metabolic Panel IN AM
07/02/24 06:00
Complete Blood Count/With Diff IN AM
Comprehensive Metabolic Panel IN AM
07/02/24 11:00
DC Protocol for Telemetry ONCE
Abnormal Lab Results
06/29/24
13:00
RBC 4.59 L 10^6/uL
(4.70-6.10)
Absolute Lymphs (auto) 0.8 L 10^3/uL
(1.2-3.4)
Neutrophils % 78.5 H %
(42.2-75.2)
Lymphocytes % 9.7 L %
(20.5-51.1)
Carbon Dioxide 20 L mmol/L
(22-30)
BUN 30 H mg/dl
(9-20)
Glucose 172 H mg/dl
(70-99)
06/29/24 13:00
06/29/24 13:00
Vital Signs
Initial and Last Documented VS:
Initial Vital Signs
Temp Pulse Resp BP Pulse Ox
98.3 F 73 17 153/74 94
06/29/24 12:40 06/29/24 12:40 06/29/24 12:40 06/29/24 12:40 06/29/24 12:40
Last Documented Vital Signs
Temp Pulse Resp BP Pulse Ox
97.6 F 69 21 131/64 98
06/29/24 21:10 06/29/24 21:10 06/29/24 21:10 06/29/24 21:10 06/29/24 21:10
MDM/Problems Addressed
Differential Diagnosis Includes:
Pneumonia, CHF, COPD
MDM/Problems Addressed:
68-year-old male with CHF exacerbation and COPD. Admit to hospitalist.
Chronic conditions affecting care: Cardiomyopathy and COPD
Acute Exacerbation and/or Progression of Chronic Illness: Cardiomyopathy and COPD
*Radiology
Radiology exam reviewed: radiology read reviewed (Chest x-ray shows moderate CHF)
*Pulse Oximetry
Patient hypoxic: yes
*EKG
Interpreted by ED Provider?: Yes
EKG Intrepretation Date: 06/29/24
EKG Intrepretation Time: 12:52
Interpretation: abnormal
Comparison EKG: changes noted
Heart Rate: 79
Rate: normal
Rhythm: sinus and PVC's
[place]: normal axis
Interval: normal interval
QRS Pattern: normal QRS
Ischemia: no ischemia
*Machine Sign Writer Interpretation
Rate: normal
Interpretation: normal
Heart Rate: 75
Rhythm: sinus
*Critical Care Note
Total Time (30-74mins, 75-104mins- exclusive of procedures): Not Applicable
Data Reviewed
Review of Other/Old Records Reveals: Discharge Summary (Recent discharge for acute on chronic hypoxic respiratory failure, acute heart failure with preserved ejection fraction and probable interstitial lung disease exacerbation)
Source: records
Prescriptions/Medications Considered But Not Given:
Antibiotics not indicated
Further Testing Considered But Not Given:
CT chest not indicated
Patient Management
Social determinants of health affecting care: Living situation, Substance abuse and Strong social support
Discussion with other providers: Hospitalist
Escalation/DeEscalation of care consider admission/obs:
Admission indicated
ED Attending Note
-
Portions of this chart may have been created with voice recognition software.� Occasional wrong word or��sound alike� substitutions may have occurred due to the inherent limitations of voice recognition software.
Discharge Plan
Departure
Patient Disposition: Admit
Date of Disposition: 06/29/24
Time of Disposition: 16:40
Admit to: Telemetry
Presentation/result/management discussed w/ accepting MD/DO: Hospitalist
Patient with high blood pressure during this ER visit?: Yes
Condition: Fair
Discharge Problem:
Acute exacerbation of CHF (congestive heart failure), Acute exacerbation of chronic obstructive pulmonary disease
Interventions
Interventions:
*Risk Screen - Suicide Last Done: 06/29/24 12:42
*General Assessment Last Done: 06/29/24 12:42
*Neglect/Abuse Screening Last Done: 06/29/24 12:42
*ED COVID-19 Vaccine History Last Done: 06/29/24 12:42
*Nursing Disposition Last Done: 06/29/24 20:50
ED- Cardiac Assessment Last Done: 06/29/24 15:35
ED- Pulmonary Assessment Last Done: 06/29/24 15:35
Discharge Date and Time
Discharge Date/Time: 06/29/24 20:50
[2024-06-29] MEDS: DUONEB 3 ML INH (15:24)
--- NOTE | 2024-06-29 16:35 | CON.CAR ---
Addendum entered and electronically signed by Lawson Fuchs MD 06/30/24 09:23:
I saw and examined the patient.
The [employer]'s note was reviewed and I agree with the note.
Comment: Briefly, 68M PMHx HFpEF and pulm HTN who is presenting with worsening hypoxia found to be in decompensated HF
Patient is normally maintained on 2 L nocturnal O2 at home however he has been using oxygen [id number] over the last week or so
Tells me mild lower extremity edema but no significant weight gain over this.
Due to hypoxia he was referred to [facility] emergency department for evaluation
Chest x-ray suggestive of pulmonary edema and proBNP was elevated in keeping with CHF
Agree with IV Lasix twice daily
Wean oxygen as able
Monitor daily weights and electrolytes
Reviewed the importance of low-salt diet and adherence to Lasix dosing
Suspect that he may need to be discharged on 40 mg twice daily of Lasix, currently taking once daily
Addendum entered and electronically signed by Trinity Sharma PA-C 06/30/24 08:11:
.
Original Note:
Consultation
Consultation Request
Date/Time Consultation Requested: 06/29/24
Date/Time Consultation Performed: 06/29/24
Requesting Provider: Dr. Gay in the ER
Performing Provider:
Reason for Consultation: Acute HF
Medical History
-
History of Present Illness:
Patient came to ER today after he was noted to be hypoxic in the cardiology office and is now likely to be admitted with acute HFpEF in the setting of PHTN. Patient was just admitted to 06/14/2024 until 06/16/2024 with probable AE ILD vs AE
asthma. Patient reports that during that admission he received a dose of IV Lasix, but patient was not seen by cardiology. He was discharged home on prednisone. Patient was scheduled to be seen in the office today after this admission and also to
follow-up on a phone call his mother made to our office yesterday saying that he was more SOB and coughing and also reported that on his own he had stopped taking his Opsumit. Patient has known pulmonary hypertension and was started on Adcirca 20
mg daily 03/2024. A bit later he received approval for Opsumit and this was started at 10 mg daily 05/2024. Patient then called our office to report feeling lightheaded and dizzy and was reportedly hypoxic at 85% on RA and so our office advised
him to go to the ER on 06/14/2024. Then as noted above the patient was admitted and received a dose of IV Lasix along with steroids for possible acute exacerbation of either ILD or asthma, but was not seen by cardiology. He then called our office
yesterday report he was no longer taking the Opsumit and so we attempted to see him in the office today for a visit but he had a pulse ox of 77% on RA and was placed on 4 L oxygen via NC in our office and transported to ER. Patient is now on 6 L
NC and reports SOB has improved. Patient denies weight gain and says that he barely eats anything at home. Patient reports good urine output after daily dose of Lasix 40 mg daily. Patient complains of left ankle edema and denies bloating.
PMH:
Chronic hypoxic respiratory insufficiency
Recent admission for acute on chronic hypoxic respiratory failure and probable AE ILD vs AE asthma 06/14/2024 until 06/16/2024
Chronic HFpEF
Pulmonary HTN
likely hereditary PHTN so WHO group 1 given likely hereditary but also likely some WHO group 3 due to underlying lung disease including JERI, ILD and COPD
chronically on Adcirca (tadalafil) 20 mg daily and Opsumit 10 mg daily
ETOH use disorder
CAD
s/p CABG in 07/2013 with HALL to LAD, SVG sequential to OM, PDA
Sternal instability with sternal pain, s/p sternal rewire and muscle flap 06/16/14
Right carotid stenosis
s/p right CEA 03/13/2023
Type 2 DM
COPD
HTN
Syncope 04/2023
Dyslipidemia
Tobacco abuse
GERD
Lumbar spinal Stenosis s/p laminectomy L5-S1
COPD
Bilateral Carpal Tunnel Surgery
Bilateral Eye Surgeries
LINQ monitor May 2023
Past Medical History
Past Medical History: Other (in HPI)
Past Surgical History: Cardiac (CABG), Tonsilectomy and Other (Rt CEA 03/13/2023, lumbar laminectomy, bilateral carpal tunnel surgery, bilateral eye surgery)
Social History
Tobacco: Smoker (but says he quit smoking 06/12/24)
Alcohol: Daily
Personal: Single
Living: Alone
Family History
Family History: CAD (brother and father) and Other (CKD, father with PTHN)
Allergies / Home Medications
Allergy/AdvReac Type Severity Reaction Status Date / Time
dapagliflozin [From [facility]] Allergy renal Verified 06/14/24 12:03
insufficiency
pollen extracts Allergy sneezing Verified 06/14/24 12:03
spironolactone Allergy Dizziness Verified 06/14/24 12:03
and renal
insufficiency
valsartan Allergy Dizziness Verified 06/14/24 12:03
and renal
insufficiency
�Medication �Instructions �Recorded �Confirmed �Type
albuterol sulfate 90 mcg/actuation 2 puff inhalation R Q4HPRN PRN 02/26/22 06/14/24 History
aerosol inhaler SOB, Wheezes
amlodipine 10 mg tablet 5 mg PO DAILY Blood Pressure 02/26/22 06/14/24 History
aspirin 81 mg tablet,delayed 81 mg PO DAILY Blood Clot 02/26/22 06/14/24 History
release Prevention/Tx
esomeprazole magnesium 40 mg 40 mg PO DAILY Gastrointestinal 03/13/23 06/14/24 History
capsule,delayed release Issue
furosemide 40 mg tablet (Lasix) 40 mg PO DAILY #30 tabs 06/26/23 06/14/24 Rx
potassium chloride 20 mEq 40 meq (2 x 20 mEq) PO TID #90 tabs 06/26/23 06/14/24 Rx
tablet,extended release(part/cryst)
spironolactone 25 mg tablet 12.5 mg (1/2 x 25 mg) PO DAILY #30 06/26/23 06/14/24 Rx
tabs
ezetimibe 10 mg tablet 10 mg PO DAILY 09/29/23 06/14/24 History
rosuvastatin 20 mg tablet 20 mg PO DAILY 09/29/23 06/14/24 History
gabapentin 300 mg capsule 300 mg PO TID 06/14/24 06/14/24 History
insulin glargine 100 unit/mL (3 40 unit SC HS 06/14/24 06/14/24 History
mL) subcutaneous pen (Basaglar
KwikPen U-100 Insulin)
insulin lispro 100 unit/mL 1 sliding scale dose SC TIDPRN PRN 06/14/24 06/14/24 History
subcutaneous pen (Humalog KwikPen high sugar levels
(U-100) Insulin)
macitentan 10 mg tablet (Opsumit) 10 mg PO DAILY 06/14/24 06/14/24 History
metoprolol succinate 25 mg 25 mg PO QPM 06/14/24 06/14/24 History
tablet,extended release 24 hr
(Toprol XL)
oxycodone-acetaminophen 5 mg-325 1 tab PO HSPRN PRN severe pains 06/14/24 06/14/24 History
mg tablet
tadalafil (pulm. hypertension) 20 40 mg PO DAILY 06/14/24 06/14/24 History
mg tablet (pulmonary hypertension)
prednisone 20 mg tablet 20 mg PO DAILY 3 days #3 tabs 06/16/24 Rx
Review of Systems
-
History Source: Patient
All other systems: Negative unless noted
Physical Exam
Vital Signs
Temp Pulse Resp BP Pulse Ox
98.3 F 85 24 136/85 97
06/29/24 12:40 06/29/24 16:05 06/29/24 16:05 06/29/24 15:05 06/29/24 16:00
GEN: NAD. JANELLO x 3.�
HEENT:�MMM, EOMI
LUNGS: Wearing oxygen at 6 L NC. Fine bibasilar crackles from the base to midlung field bilaterally.�No wheezing
CV: Reg, no murmur
ABD : soft, +BS, ND, NT
EXT: No edema B/L LE, but patient feels that his left ankle is edematous
NEURO: No focal neurologic deficits
Lab Results
06/29/24 13:00
06/29/24 13:00
Troponin I 0.016 ng/ml 06/29/24 13:00
Nkt-V-Zeogobjhubd Pept 1120 pg/ml 06/29/24 13:00
Impression / Plan
-
PCP: Ezekiel Avila
Cardiology: Dr. EUNICE Cox
Impression:
Acute on chronic hypoxic respiratory insufficiency
Recent admission for acute on chronic hypoxic respiratory failure and probable AE ILD vs AE asthma 06/14/2024 until 06/16/2024
Acute on chronic HFpEF
Pulmonary HTN
likely hereditary PHTN so WHO group 1 given likely hereditary but also likely some WHO group 3 due to underlying lung disease including JERI, ILD and COPD
chronically on Adcirca (tadalafil) 20 mg daily and Opsumit 10 mg daily
ETOH use disorder
CAD
s/p CABG in 07/2013 with HALL to LAD, SVG sequential to OM, PDA
Sternal instability with sternal pain, s/p sternal rewire and muscle flap 06/16/14
Right carotid stenosis
s/p right CEA 03/13/2023
Type 2 DM
COPD
HTN
Syncope 04/2023
Dyslipidemia
Tobacco abuse
GERD
Lumbar spinal Stenosis s/p laminectomy L5-S1
COPD
Bilateral Carpal Tunnel Surgery
Bilateral Eye Surgeries
LINQ monitor May 2023
RHC 05/16/2023: Hemodynamics (mmHg): RA (m) : 1; RV (s/d,m) : 83/11, 22; PA (s/d, m) : 84/27/46; PCWP (m) : 24; Cardiac Output : 2.45 L/min and Cardiac Index : 1.37 L/min/m-2
R/LHC 09/29/23: Patent HALL-LAD and sequential [id number], elevated PVR at 6.8 Wood units, PCWP 15 mmHg and LVEDP 18 mmHg
Echo 01/06/2023: EF 60%, stage II DD w/ increased filling pressures. Mild TR w/ PAP 39 mmHg
Echo 04/04/2023:�EF 55 to 60% with normal wall motion.� Stage II DD, mild MR with PAP 35 mmHg
Echo 05/19/2023: EF 55-60%, normal RV, normal atria, mild TR, pulmonary artery pressure 37-42 mmHg, similar to April 2023
Plan:
-Patient came to ER today after he was noted to be hypoxic in the cardiology office and is now likely to be admitted with acute HFpEF in the setting of PHTN. Patient was just admitted to 06/14/2024 until 06/16/2024 with probable AE ILD vs AE
asthma. Patient reports that during that admission he received a dose of IV Lasix, but patient was not seen by cardiology. He was discharged home on prednisone. Patient was scheduled to be seen in the office today after this admission and also to
follow-up on a phone call his mother made to our office yesterday saying that he was more SOB and coughing and also reported that on his own he had stopped taking his Opsumit. Patient has known pulmonary hypertension and was started on Adcirca 20
mg daily 03/2024. A bit later he received approval for Opsumit and this was started at 10 mg daily 05/2024. Patient then called our office to report feeling lightheaded and dizzy and was reportedly hypoxic at 85% on RA and so our office advised
him to go to the ER on 06/14/2024. Then as noted above the patient was admitted and received a dose of IV Lasix along with steroids for possible acute exacerbation of either ILD or asthma, but was not seen by cardiology. He then called our office
yesterday report he was no longer taking the Opsumit and so we attempted to see him in the office today for a visit but he had a pulse ox of 77% on RA and was placed on 4 L oxygen via NC in our office and transported to ER. Patient is now on 6 L
NC and reports SOB has improved. Patient denies weight gain and says that he barely eats anything at home. Patient reports good urine output after daily dose of Lasix 40 mg daily. Patient complains of left ankle edema and denies bloating.
-ECG reviewed by me is SR without acute ST changes.
-Recommend admission and IV diuresis with Lasix 40 mg IV BID. Patient was taking Lasix 40 mg PO daily prior to admission.
-Cough might be from CHF, his pro-BNP is 1120 compared to 560 during admission earlier this month.
-EF was 55-60% by echo 05/19/23
-Outpatient dose of Adcirca 20 mg daily should be continued
-Outpatient dose of Opsumit 10 mg daily should be resumed. Patient stopped taking Opsumit on his own prior to admission as he felt it made his cough worse, but he has been on Opsumit for 6 weeks and the cough is only worse in the last 1 to 2 weeks.
[2024-06-29] MEDS: LASIX 40 MG IV (17:01)
--- NOTE | 2024-06-29 17:04 | HPS.HSE ---
Family Physician
-
Family Physician:
Chief Complaint
-
Cough, shortness of breath
History of Present Illness
68-year-old male complaining of cough, shortness of breath. Patient was sent from Dr. Bundy office where his pulse ox was noted to be 77% on room air. Patient states he weighs himself daily and is typically anywhere from 160 to 163 pounds.
He reports he was 159 pounds today he is 72.2 kg / 158.8 pounds today in the ER. He has bilateral rales both lung donohue. He reports taking his Lasix as scheduled has not missed any doses. He denies any chest pain, palpitations, abdominal pain,
nausea, vomiting, diarrhea, urinary symptoms. He reports he has upcoming surgery 07/28 to replace a elodia in his lower lumbar back and implant a elodia in his upper thoracic back.
He has past medical history CHF, CAD, CABG x 3 vessel 2013, pulm HTN, HTN, HLD, PVD, carotid stenosis status post right CEA 03/2023 COPD, ex-smoker, GERD, CKD stage IIIb, DM2, anemia, arthritis, loop recorder, obesity
Medical History
Past Medical History
Past Medical History: Reports Other
Additional Past Medical History:
CHF
CAD
CABG x 3 vessel 2013
pulm HTN
HTN
HLD
PVD
carotid stenosis status post right CEA 03/2023
COPD
ex-smoker 50-year 1 pack a day stopped June 2024
GERD
CKD stage IIIb
DM2,
anemia
arthritis,
loop recorder
obesity
Past Surgical History: Reports Other
Additional Past Surgical History:
CEA 03/21/2023
CABG x 3 vessel 2013
L5-S1 laminectomy 03/21/2022
Back surgery with discectomy 1997
CTR bilateral hands
Tonsillectomy
Social History
Tobacco: Former Smoker (50-year 1 pack/day quit June 2024)
Alcohol: Occasional (Drinks 2 drinks 4 days a week at a bar whiskey mixed drink)
Personal: Single
Living: Alone
Family History
Family History: Other (Father agent orange cancer, mother living history of A-fib, HTN, CHF)
Allergies / Home Medications
Allergies reflects when Allergies were last updated in [facility].
Home Medications with original date entered in [facility]
Allergy/Medication List:
Allergies
Allergy/AdvReac Type Severity Reaction Status Date / Time
dapagliflozin [From [facility]] Allergy renal Verified 06/14/24 12:03
insufficiency
pollen extracts Allergy sneezing Verified 06/14/24 12:03
spironolactone Allergy Dizziness Verified 06/14/24 12:03
and renal
insufficiency
valsartan Allergy Dizziness Verified 06/14/24 12:03
and renal
insufficiency
Home Medications
albuterol sulfate 90 mcg/actuation aerosol inhaler 2 puff inhalation R Q4HPRN PRN SOB, Wheezes 02/26/22
aspirin 81 mg tablet,delayed release 81 mg PO DAILY Blood Clot Prevention/Tx 02/26/22
esomeprazole magnesium 40 mg capsule,delayed release 40 mg PO DAILY Gastrointestinal Issue 03/13/23
ezetimibe 10 mg tablet 10 mg PO DAILY 09/29/23
rosuvastatin 20 mg tablet 20 mg PO DAILY 09/29/23
gabapentin 300 mg capsule 300 mg PO TID 06/14/24
insulin glargine 100 unit/mL (3 mL) subcutaneous pen (Basaglar KwikPen U-100 Insulin) 60 unit SC HS 06/14/24
insulin lispro 100 unit/mL subcutaneous pen (Humalog KwikPen (U-100) Insulin) 1 sliding scale dose SC TID 06/14/24
macitentan 10 mg tablet (Opsumit) 10 mg PO DAILY 06/14/24
metoprolol succinate 25 mg tablet,extended release 24 hr (Toprol XL) 25 mg PO QPM 06/14/24
oxycodone-acetaminophen 5 mg-325 mg tablet 1 tab PO HSPRN PRN severe pains 06/14/24
tadalafil (pulm. hypertension) 20 mg tablet (pulmonary hypertension) 40 mg PO DAILY 06/14/24
amlodipine 5 mg tablet (Norvasc) 5 mg PO DAILY 06/29/24
furosemide 40 mg tablet (Lasix) 40 mg PO DAILY 06/29/24
potassium chloride 20 mEq tablet,extended release 40 meq PO TID 06/29/24
spironolactone 25 mg tablet 12.5 mg PO DAILY 06/29/24
Review of Systems
-
History Source: Patient
A 12 point ROS was completed and negative except as noted: Yes
Constitutional: Denies Fever or Chills
EENT: Denies Tearing or Mouth Swelling
Respiratory: Reports Cough and Trouble Breathing
Cardiac: Denies Chest Pain, Diaphoresis, Palpitations or Syncope
Abdomen/GI: Denies Abdominal Pain, Nausea, Vomiting, Diarrhea or Constipated
: Denies Dysuria, Frequency, Flank Pain, Incontinence or Difficulty Voiding
Musculoskeletal: Denies Joint Pain, Muscle Stiffness or Edema
Skin: Denies Itching or Rash
Neurological: Denies Dizzy or Headache
Hematologic/Lymphatic: Reports No Symptoms
Psych: Reports Calm
Physical Exam
Vital Signs
Vital Signs
Temp Pulse Resp BP Pulse Ox
98.3 F 85 24 136/85 97
06/29/24 12:40 06/29/24 16:05 06/29/24 16:05 06/29/24 15:05 06/29/24 16:00
Physical Exam
General: Comfortable and Conversant; No Pain, Fever or Chills
HEENT: NormoCephalic, Anicteric, PERRLA, [place] Conjunctivae, No Ptosis and Oxygen (3 L nasal cannula)
Respiratory: Rales (Bilaterally throughout both lower lung donohue); No Wheezes
Cardiac: S1/S2 and Regular Rhythm; No Murmur, Rub, Gallop or Peripheral Edema
GI: Soft, Non Tender, Non Distended, Normal Bowel Sounds and No Hepatosplenomegaly
Rectal: Deferred by Provider
Genito-urinary: Deferred by me
Musculoskeletal: No Clubbing, No Cyanosis and No Edema
Skin: Warm and Dry; No Jaundice
Neuro: AO x 3, No Motor Deficits and No Sensory Deficits; No Nonfocal/grossly intact, Slurred Speech, Facial Droop or Tremors
Laboratory Results
-
06/29/24 13:00
06/29/24 13:00
Laboratory Results
PT Cancelled 06/29/24 13:19
INR Cancelled 06/29/24 13:19
Total Bilirubin 0.7 mg/dl (0.2-1.3) 06/29/24 13:00
AST 19 U/L (17-59) 06/29/24 13:00
ALT 20 U/L (0-50) 06/29/24 13:00
Alkaline Phosphatase 80 U/L (38-126) 06/29/24 13:00
Troponin I 0.016 ng/ml 06/29/24 13:00
Data Reviewed
-
Diagnostic Radiology: Report Reviewed by me
Lab Data: Labs Reviewed by me
Impression/Plan
-
Impression/plan:
Admit to telemetry
#Acute on Chronic CHF
77% on room air, 94% 3 L nasal cannula
I/O, daily weight
-Consult [facility] cardiology-was sent from Dr. Niharika howe
BNP 1120
-Patient on spironolactone 12.5 mg daily, Lasix 40 mg daily
-Continue spironolactone 12.5 mg daily hold if potassium elevated
-Will give Lasix 40 mg IV daily
- follow bmp
CXR: Mild to moderate CHF/progressed
2D echo 05/19/2023: EF 55 to 60% normal LVS LVSF, pulm arterial pressure 37-42 mmHg, mild TR
EKG: NSR 79 bpm, QTc 481 MS
#Pulmonary HTN
-Continue tadalafil 40 mg daily, Opsumit 10 mg daily
-Consult Pulmonary
#COPD�no acute exacerbation
#ex-smoker
50-year smoker 1 pack a day quit 4 weeks ago beginning in June 2024
#HTN�benign
136/85
--Continue amlodipine 5 mg daily, Toprol XL 25 mg every afternoon
#CKD 3B
Creat 1.2 appears near baseline
Follow BMP
#HTN�benign
-Continue amlodipine 5 mg daily, Toprol XL 25 mg every afternoon
#HLD
- Continue Crestor 20 mg daily, Zetia 10 mg daily
#DM 2
-Accu-Cheks with SSI, check HgbA1c
BS 172
-Basaglar 60 units SQ at bedtime(will give Basaglar 30 units this evening 06/28/2024 then monitor)
#CAD
#CABG x 3 vessel 2013
Loop recorder
-Continue aspirin 81 mg daily, Zetia, Crestor
#Chronic back pain on chronic oral opiates as needed
#L5-S1 laminectomy 03/21/2022
#Back surgery with discectomy 1997
Patient due for elodia replacement lumbar and new elodia insertion thoracic July [address] Johnson
-Continue gabapentin 300 mg 3 times daily
-Continue oxycodone/acetaminophen 1 tab p.o. at bedtime as needed severe pain
#Carotid stenosis
#CEA 03/21/2023
Continue Crestor 20 mg daily, Zetia 10 mg daily
#PVD
#Anemia
-Hgb 13.5
Arthritis
DVT prophylaxis
Subcu heparin
Full code
--- NOTE | 2024-06-29 17:24 | W.PN.UPDATE ---
Update Note
Progress Note Update
This serves as an addendum to the H&P dictated by Cass Treviño on 06/29/2024.
I saw and examined the patient.
The INSURANCE VERIFIER or PA's note was reviewed and I agree with the note.
Comment:
Patient is 68-year-old male with history of CHF, CAD, hypertension, diabetes mellitus, COPD, came into the hospital with shortness of breath and hypoxia. Patient has been experiencing more shortness of breath than usual several days and was found
to be hypoxic and his cardiology sent him over to the hospital for further evaluation. He does use oxygen at home about 2 L to 2-1/2 at nighttime but lately he has been using it during the daytime as well. He also complains of dry cough. He
denies fevers or chills. He does have lower extremity edema. Denies any chest pain. In the ER, chest x-ray shows CHF progression, BNP 1120. He was referred to hospitalist service for evaluation.
Physical exam:
General: Acute on chronically ill
HEENT: Normocephalic, Atraumatic and Moist Mucous Membranes
Respiratory: Decreased breath sounds bilateral; Bilateral fine crackles, negative Wheezes or Rhonchi
Cardiac: Regular Rhythm and S1/S2
GI: Soft, Nontender and Nondistended
Musculoskeletal: Bilateral lower extremity edema. No Clubbing, No Cyanosis
Neuro: Awake, Alert and Oriented
Psych: Calm
A/P:
Acute on chronic hypoxic respiratory insufficiency--> probably multifactorial etiology but heart failure exacerbation predominantly, IV Lasix, bronchodilators, cardiology input appreciated, pulmonary eval.
[2024-06-29 21:16] LABS: Glucose - Point of Care 285 mg/dl (70-99)
[2024-06-29] MEDS: NEURONTIN 300 MG PO (21:25)
[2024-06-29] MEDS: PERCOCET 5/325 1 TABLET PO (21:25)
[2024-06-29] MEDS: TOPROL XL 25 MG PO (21:25)
[2024-06-29] MEDS: NOVOLOG FLEXPEN 6 UNITS SC (21:57)
[2024-06-29] MEDS: LANTUS 0.3 UNITS SC (21:58)
[2024-06-30 03:05] LABS: Glucose - Point of Care 92 mg/dl (70-99)
[2024-06-30 06:00] VITALS: BMI 26.4
[2024-06-30 07:20] VITALS: BP 117/96
[2024-06-30 07:38] LABS: Glucose - Point of Care 84 mg/dl (70-99)
[2024-06-30] MEDS: NOVOLOG FLEXPEN-LOW RESISTANCE SC ×2 (07:39→13:03)
[2024-06-30] MEDS: ALDACTONE 12.5 MG PO (07:46)
[2024-06-30] MEDS: LASIX 40 MG IV ×2 (07:47→15:11)
[2024-06-30] MEDS: PROTONIX 40 MG PO (07:47)
[2024-06-30] MEDS: NEURONTIN 300 MG PO ×3 (07:47→20:29)
[2024-06-30] MEDS: CRESTOR 20 MG PO (07:47)
[2024-06-30] MEDS: ZETIA 10 MG PO (07:47)
[2024-06-30] MEDS: ASPIR LOW (ENTERIC COATED) 81 MG PO (07:47)
[2024-06-30 08:23] LABS: % Immature Granulocytes 0.4 % (0-0.5); % Lymphocytes 16.7 % (20.5-51.1); % Monocytes 10.4 % (1.7-9.3); % Neutrophils 66.5 % (42.2-75.2); Absolute Basophils 0.1 10^3/uL (0-0.2); Absolute Eosinophils 0.4 10^3/uL (0-0.7); Absolute Lymphocytes 1.2 10^3/uL (1.2-3.4); Absolute Monocytes 0.7 10^3/uL (0.1-0.6); Absolute Neutrophils 4.7 10^3/uL (1.4-6.5); Hematocrit 39.9 % (39.0-52.0); Mean Corp Hgb Conc. 32.6 g/dL (33.0-37.0); Mean Corpuscular Hgb 28.8 pg (27.0-31.0); Mean Corpuscular Volume 88.5 fL (80.0-94.0); Mean Platelet Volume 10.4 fL (7.4-10.4); Nucleated Red Blood Cells % 0 % (-); Platelet Count 204 10^3/uL (130-400); Red Blood Cell Count 4.51 10^6/uL (4.70-6.10); Red Cell Dist. Width 12.9 % (11.5-14.5)
[2024-06-30 08:51] LABS: Glycohemoglobin (HgbA1c) 7.5 % (4.0-5.6)
[2024-06-30 08:55] LABS: ALT (SGPT) 18 U/L (0-50); AST (SGOT) 17 U/L (17-59); Albumin 3.5 g/dl (3.5-5.0); Alkaline Phosphatase 65 U/L (38-126); Blood Urea Nitrogen 32 mg/dl (9-20); Calcium 9.4 mg/dl (8.4-10.2); Carbon Dioxide 30 mmol/L (22-30); Chloride 97 mmol/L (98-107); Estimated Creatinine Clearance 45 ml/min; Glucose 84 mg/dl (70-99); Potassium 3.5 mmol/L (3.5-5.1); Sodium 138 mmol/L (135-145); Total Bilirubin 0.4 mg/dl (0.2-1.3); Total Protein 6.5 g/dl (6.3-8.2); eGFR 55.43
--- NOTE | 2024-06-30 09:11 | W.PN.HOSP.TC ---
Today's Communication/Plan
-
IV Lasix
Assessment / Plan
Assessment / Plan
Physical exam:
General: Acute on chronically ill
HEENT: Normocephalic, Atraumatic and Moist Mucous Membranes
Respiratory: Decreased breath sounds bilateral; Bilateral fine crackles, negative Wheezes or Rhonchi
Cardiac: Regular Rhythm and S1/S2
GI: Soft, Nontender and Nondistended
Musculoskeletal: Bilateral lower extremity edema. No Clubbing, No Cyanosis
Neuro: Awake, Alert and Oriented
Psych: Calm
A/P:
#Acute on Chronic diastolic CHF
77% on room air, 94% 3 L nasal cannula upon admission. He uses bedtime oxygen that has been using all day long.
I/O, daily weight
-Cardiology consult appreciated
BNP 1120
-Patient on spironolactone 12.5 mg daily, Lasix 40 mg daily
-Continue spironolactone 12.5 mg daily
-Will continue Lasix 40 mg IV BID
CXR: Mild to moderate CHF/progressed
2D echo 05/19/2023: EF 55 to 60% normal LVS LVSF, pulm arterial pressure 37-42 mmHg, mild TR
EKG: NSR 79 bpm, QTc 481 MS
#Pulmonary HTN
-Continue tadalafil 40 mg daily, Opsumit 10 mg daily on hold
-Pulmonary consult appreciated
#COPD�no acute exacerbation
#ex-smoker
50-year smoker 1 pack a day quit 4 weeks ago beginning in June 2024
#HTN�benign
-Stable
--Continue amlodipine 5 mg daily, Toprol XL 25 mg every afternoon
#CKD 3B
Creat with mild bump
Follow BMP
#HTN�benign
-Continue amlodipine 5 mg daily, Toprol XL 25 mg every afternoon
#HLD
- Continue Crestor 20 mg daily, Zetia 10 mg daily
#DM 2
-Accu-Cheks with SSI, check HgbA1c
-Basaglar 60 units SQ at bedtime(will cont Basaglar 30 units every evening for now)
#CAD
#CABG x 3 vessel 2013
Loop recorder
-Continue aspirin 81 mg daily, Zetia, Crestor
#Chronic back pain on chronic oral opiates as needed
#L5-S1 laminectomy 03/21/2022
#Back surgery with discectomy 1997
Patient due for elodia replacement lumbar and new elodia insertion thoracic [address] Johnson
-Continue gabapentin 300 mg 3 times daily
-Continue oxycodone/acetaminophen-reports he takes more than bedtime so increased frequency for now.
#Carotid stenosis
#CEA 03/21/2023
Continue Crestor 20 mg daily, Zetia 10 mg daily
#PVD
#Anemia
-Hgb stable
Arthritis
DVT prophylaxis
Subcu heparin
Full code
Total time spent on today's encounter was 52 minutes which included time spent in counseling the patient/family regarding diagnosis and treatment plan as listed above, goals of care, and symptom management. Case was discussed with nursing staff,
specialists, and care coordinators/case management. All labs and imaging personally reviewed by me. Remainder the time spent in detailed review of previous records, lab data, imaging, and other medical provider documentation.
Anticipated Discharge: > 48 hours
Subjective/Interval History
-
Date of Service: June 30, 2024
Patient feels better overall but still sob and cough. Afebrile
Objective Data
-
Labs:
Laboratory Results
06/30/24
07:21
WBC 7.0
Hgb 13.0
Hct 39.9
Plt Count 204
Sodium 138
Potassium 3.5
Chloride 97 L
Carbon Dioxide 30
BUN 32 H
Creatinine 1.4 H
Glucose 84
Calcium 9.4
Total Bilirubin 0.4
AST 17
ALT 18
Alkaline Phosphatase 65
Vital Signs:
Vital Signs
Temp Pulse Resp BP Pulse Ox
97.5 F 57 20 117/96 95
06/30/24 07:20 06/30/24 07:47 06/30/24 07:20 06/30/24 07:47 06/30/24 08:09
I&O
06/29/24 06/30/24 07/01/24
06:59 06:59 06:59
Intake Total 480 / 480 180 / 180
Output Total 1225 / 1225
Balance -745 / -745 180 / 180
[2024-06-30] MEDS: PERCOCET 5/325 1 TABLET PO ×2 (09:13→20:29)
[2024-06-30] MEDS: ProAIR HFA INHALER 2 PUFF INH ×2 (11:48→15:52)
[2024-06-30 11:56] VITALS: BP 116/58
[2024-06-30 12:30] LABS: Glucose - Point of Care 115 mg/dl (70-99)
--- NOTE | 2024-06-30 13:59 | CON.PUL ---
Consultation
Consultation Request
Date/Time Consultation Requested: 06/30/2024
Date/Time Consultation Performed: 06/30/2024
Requesting Provider: Dr. Pearson
Performing Provider: Dr. Michael Seay
Reason for Consultation: Acute hypoxemic respiratory failure.
Medical History
-
History of Present Illness:
Patient is a 68 year old M with history of COPD, ILD, smoker, ETOH abuse, CAD s/p CABG in past, heart failure with preserved ejection fraction, brought into the emergency room after being found hypoxemic 77% on room air.
Patient reports that his weight has been stable. Apparently on exam in the emergency room had bilateral crackles on exam.
Patient reports compliance with diuretics.
Patient has chronic back pain. He has upcoming surgery in 07/28/2024 to replace the elodia on his lower back.
-
Patient was sent to the emergency room from the cardiology office, found to be hypoxemic while walking in the hallway. 06/29/2024.
Patient does have diagnosis of pulmonary arterial hypertension per [facility] records. Follows up with Dr. Bundy, recently has been started on Opsumit and was already on tadanafil. Apparently father has history of pulmonary arterial hypertension as
well.
Patient has history of obstructive lip apnea declined therapy.
Recently stopped smoking in June per patient report
He does not follow-up locally with pulmonary.
Ultrasound of the liver with cirrhosis but no portal hypertension.
Last echocardiogram was in 2022. But did had a catheterization in 2023 consistent with pulmonary arterial hypertension.
-
At least in our system last CAT scan available 04/2023. Had mild pulmonary fibrosis/paraseptal emphysema. No lung nodules.
Again, he does not follow-up locally
Pulmonary function testing in 2022 showed restriction. No airflow obstruction. Severely decreased diffusion capacity likely due to underlying lung scarring, pulmonary hypertension and mild emphysema.
-
We were consulted for evaluation 06/30/2024
Past Medical History
Past Medical History: Other (see list below)
Social History
Tobacco: Former Smoker
Alcohol: None
Drug: None
Family History
Family History: Reviewed & Not Pertinent
Allergies / Home Medications
Allergies
Allergy/AdvReac Type Severity Reaction Status Date / Time
dapagliflozin [From [facility]] Allergy renal Verified 06/14/24 12:03
insufficiency
pollen extracts Allergy sneezing Verified 06/14/24 12:03
spironolactone Allergy Dizziness Verified 06/14/24 12:03
and renal
insufficiency
valsartan Allergy Dizziness Verified 06/14/24 12:03
and renal
insufficiency
Home Medications
�Medication �Instructions �Recorded �Confirmed �Last Taken �Type
albuterol sulfate 90 mcg/actuation 2 puff inhalation R Q4HPRN PRN 02/26/22 06/29/24 09/29/23 05:00 History
aerosol inhaler SOB, Wheezes
aspirin 81 mg tablet,delayed 81 mg PO DAILY Blood Clot 02/26/22 06/29/24 06/29/24 History
release Prevention/Tx
esomeprazole magnesium 40 mg 40 mg PO DAILY Gastrointestinal 03/13/23 06/29/24 06/29/24 History
capsule,delayed release Issue
ezetimibe 10 mg tablet 10 mg PO DAILY 09/29/23 06/29/24 06/29/24 History
rosuvastatin 20 mg tablet 20 mg PO DAILY 09/29/23 06/29/24 06/29/24 History
gabapentin 300 mg capsule 300 mg PO TID 06/14/24 06/29/24 06/29/24 History
insulin glargine 100 unit/mL (3 60 unit SC HS 06/14/24 06/29/24 06/28/24 History
mL) subcutaneous pen (Basaglar
KwikPen U-100 Insulin)
insulin lispro 100 unit/mL 1 sliding scale dose SC TID 06/14/24 06/29/24 Unknown History
subcutaneous pen (Humalog KwikPen
(U-100) Insulin)
macitentan 10 mg tablet (Opsumit) 10 mg PO DAILY 06/14/24 06/29/24 06/26/24 History
metoprolol succinate 25 mg 25 mg PO QPM 06/14/24 06/29/24 06/28/24 History
tablet,extended release 24 hr
(Toprol XL)
oxycodone-acetaminophen 5 mg-325 1 tab PO HSPRN PRN severe pains 06/14/24 06/29/24 Unknown History
mg tablet
tadalafil (pulm. hypertension) 20 40 mg PO DAILY 06/14/24 06/29/24 06/29/24 History
mg tablet (pulmonary hypertension)
amlodipine 5 mg tablet (Norvasc) 5 mg PO DAILY 06/29/24 06/29/24 06/29/24 History
furosemide 40 mg tablet (Lasix) 40 mg PO DAILY 06/29/24 06/29/24 06/28/24 History
potassium chloride 20 mEq 40 meq PO TID 06/29/24 06/29/24 06/29/24 History
tablet,extended release
spironolactone 25 mg tablet 12.5 mg PO DAILY 06/29/24 06/29/24 06/28/24 History
Review of Systems
-
History Source: Patient
All other systems: Negative unless noted
Vitals / Labs / Diagnostic Testing
Vital Signs
Temp Pulse Resp BP Pulse Ox
97.8 F 57 22 116/58 96
06/30/24 11:56 06/30/24 11:56 06/30/24 11:56 06/30/24 11:56 06/30/24 11:56
Lab Data
06/30/24 07:21
06/30/24 07:21
Laboratory Results
06/29/24
13:19
PT Cancelled
INR Cancelled
Diagnostic Testing:
Physical Exam
-
HEENT: Normocephalic
Cardiovascular: S1/S2
Respiratory: Rales (Bibasilar) and Non-Labored Respirations
GI: Non Distended
Neurology: Awake
Skin: Warm
General: Comfortable
Assessment
-
Patient is a 67 year old M with history of COPD, ILD, smoker, ETOH abuse, CAD s/p CABG in past, pulmonary hypertension on pulmonary vasodilators, admitted with hypoxemia and shortness of breath. Patient apparently had history of syncopal episode
last year. Underwent repeat cardiac catheterization that showed patent grafts with multivessel coronary artery disease, pulmonary arterial hypertension. He was started on pulmonary vasodilators by cardiology. Now complaining of several days of
progressive shortness of breath, worsening hypoxemia. Sent to the emergency room for evaluation. Found to have chest x-ray with increased bilateral interstitial markings and increased proBNP.
Acute on chronic hypoxemic respiratory failure. Usually only on 2 L nocturnal oxygen. Currently on 4 L nasal cannula at rest.
Acute HFpEF, volume overload with diastolic heart failure
Chest x-ray: Showed changes consistent with pulmonary edema.
Increased proBNP.
Subacute cough: Could be from pulmonary edema. Also adverse effect from Opsumit or smokers cough
History of COPD: Not in acute exacerbation
History of interstitial lung disease: Mild in 2022. Undifferentiated. Prior asbestos exposure.
Pulmonary arterial hypertension on pulmonary vasodilators.
Possibly had very tired.
Liver cirrhosis noted-fatty liver/alcohol suspected.
Per outpatient notes refused GI evaluation
Conditions present prior to admission
S/p RCEA 03/13/2023 w/Pericardial bovine patch angioplasty
Coronary disease with bypass surgery
Sternal nonunion, with sternal rewiring 2015
Interstitial disease per prior CT imaging-undifferentiated.
Apical disease per head and neck CT 02/17/2023.
CT chest 04/08/2023: Reviewed, showed widespread bilateral prominent interstitial markings most likely chronic with superimposed mild bibasilar subsegmental atelectasis. No pulmonary nodules.
Asbestos exposure history
Bronchiolitis with pleural plaques per outpatient records
Has seen pulmonary in [place]
Pulmonary Arterial hypertension: On pulmonary vasodilators following with Dr. Bundy
Obstructive sleep apnea: Declined therapy.
On 2 L nocturnal oxygen only.
Fatty liver/possibly cirrhosis On ultrasound 02/19/2024.
Hypertension
Hyperlipidemia
Diabetes
GERD
?Mild at best COPD/Mild paraseptal emphysema on CAT scan
Pulmonary function testing 02/03/2024: Pulmonary function testing more consistent with restrictive lung disease likely from obesity. Severe decreased diffusion capacity likely related to his pulmonary hypertension. Flow volume curve not
consistent with airflow obstruction.
ILD-undifferentiated
50+ pack years of smoking, ongoing reportedly was stopped in June 2024.
Chronic kidney disease stage IIIb
Loop recorded in place
Obesity
Family history of coronary disease, brother
Alcohol abuse history
Past Surgical History:
CEA 03/21/2023
CABG x 3 vessel 2013
L5-S1 laminectomy 03/21/2022
Back surgery with discectomy 1997
CTR bilateral hands
Tonsillectomy
Plan
Clinical picture consistent with acute on chronic heart failure with preserved ejection fraction based on chest x-ray results as well as increased proBNP.
Agree with IV diuretics
Repeat chest x-ray in the next 24 to 48 hours after diuresis. If there is resolution of worsening bilateral infiltrates findings likely only related to pulmonary edema.
If there is persistent symptoms and persistent infiltrate in his repeat CT chest will be recommended to rule out progressive ILD as well as perhaps repeat echocardiogram.
-
Again, pulmonary arterial hypertension-possibly hereditary.
Patient does have cirrhosis but no portal hypertension.
Currently on tadalafil
Recently started on Opsumit initially feeling better on it-currently on hold for the last few days as he was not feeling good on it. Sometimes pulmonary vasodilators may provoked pulmonary edema, dyspnea to be contemplated if occurs again when
restarted.
-
Emphysema on CAT scan 2022-prior pulmonary function testing without airflow obstruction.
Patient not on bronchodilators as does not have any significant airflow obstruction.
No evidence for acute exacerbation or acute bronchitis
Okay to use as needed nebulizers
No indication for systemic corticosteroid
Currently not following with pulmonary.
-
Likely has smoker's cough-recently quit smoking.
-
Obstructive sleep apnea may be contributing to pulmonary hypertension as well: Untreated. Patient refused therapy in the past
He is aware of ramifications of untreated obstructive sleep apnea including cardiovascular risk which in his case recurrences high due to underlying coronary artery disease status post CABG.
-
DVT prophylaxis heparin subcu
-
Pulmonary will continue to follow briefly depending on response a CT of the chest may be necessary.
Last time seen in our office was in 2022
Patient canceled appointment 05/19/[address] Som Marie. Patient advised to reestablish care. Information will be left in the chart.
-
Defer pulmonary vasodilation to cardiology as she follows up with Dr. Bundy for this.

Diagnostic Data
CXR 05/16/23- Relatively stable examination, given the slightly diminished degree of inspiration. Generalized prominence of bronchovascular markings; this could suggest mild vascular congestion, possible chronic interstitial fibrotic changes.
No focal consolidation.
LDCT 04/08/23- Widespread bilateral prominent interstitial markings most likely chronic with some superimposed mild bibasilar subsegmental atelectasis. Mild cardiomegaly, coronary artery calcifications and sternal wires. No pulmonary nodule
Spirometry 07/08/13- FEV1 1.8L 58%, FVC 2.27L 56%, ratio 79. Post FEV1 1.79L 58%. TLC 3.73L 62%, DLCO 70%
ECHO 04/04/23- �1.� Left ventricle: Normal size and function with a visually estimated ejection�fraction of 55 to 60%.� No regional wall motion abnormalities.� Stage II�diastolic dysfunction.
�2.� Right ventricle: Normal
�3.� Atria: Normal
�4.� Mitral valve: Trace mitral regurgitation
�5.� Aortic valve: No aortic stenosis or aortic insufficiency
�6.� Tricuspid valve: Mild tricuspid regurgitation with estimated pulmonary�artery systolic pressures of 35 mmHg
�7.� When compared to most recent echocardiogram from 01/01/2023 there has been no�significant change
-
Right heart catheterization 09/29/2023:
HEMODYNAMICS (mmHg) :
RA (m) : 16
RV (s/d) : 68/9, 13
PA (s/d,m) : 70/29, 43
PCWP (m) : 15
AO (s/d, m) : 148/70, 99
LV (s/d) : 149/11
LVEDP (m) : 18
1. Patent HALL-LAD and sequential SVG-OM 2-PDA. Severe multivessel lytton coronary artery disease
2. Elevated pulmonary vascular resistance to 6.8 Wood units
3. Compensated left ventricular filling pressures with a pulmonary capillary wedge pressure measuring 15 mmHg and LVEDP measuring 18 mmHg
-
RHC 05/16/23- Hemodynamics (mmHg):
RA (m) : 18
RV (s/d,m) : 83/11, 22
PA (s/d, m) : 84/27/46
PCWP (m) : 24
Cardiac Output : 2.45 L/min and Cardiac Index : 1.37 L/min/m-2
Systemic Vascular Resistance: 33.9 Wood units = 2710 dynes*sec*cm-5
Pulmonary Vascular Resistance: 9.0 Wood units = 718 dynes*sec*cm-5
CONCLUSION: Elevated right left ventricular filling pressures with pulmonary hypertension.� Findings are consistent with WHO Group II and Group V
[2024-06-30] MEDS: ROBITUSSIN 100 MG PO (15:14)
[2024-06-30 15:40] VITALS: BP 131/68; PULSE 55; O2SAT 98
[2024-06-30 16:57] LABS: Glucose - Point of Care 150 mg/dl (70-99)
[2024-06-30] MEDS: TOPROL XL PO (17:03)
[2024-06-30] MEDS: NOVOLOG FLEXPEN-LOW RESISTANCE 1 UNITS SC (17:27)
[2024-06-30 19:13] VITALS: BP 113/56
[2024-06-30 21:50] LABS: Glucose - Point of Care 180 mg/dl (70-99)
[2024-06-30] MEDS: LANTUS 0.3 UNITS SC (22:17)
[2024-06-30] MEDS: OCEAN, SALINE MIST 1 SPRAYS NASAL (22:53)
[2024-06-30 23:25] VITALS: BP 118/56
[2024-07-01 03:45] VITALS: BP 115/58
[2024-07-01] MEDS: PERCOCET 5/325 1 TABLET PO ×2 (05:48→21:00)
[2024-07-01 05:56] VITALS: BMI 26.0
[2024-07-01 07:44] VITALS: BP 114/63
[2024-07-01 08:10] LABS: % Basophils 0.9 % (0-2); % Eosinophils 5.6 % (0-6); % Immature Granulocytes 0.6 % (0-0.5); % Lymphocytes 16.6 % (20.5-51.1); % Monocytes 11.4 % (1.7-9.3); % Neutrophils 64.9 % (42.2-75.2); Absolute Basophils 0.1 10^3/uL (0-0.2); Absolute Eosinophils 0.5 10^3/uL (0-0.7); Absolute Immature Granulocytes 0.1 10^3/uL (0-0.05); Absolute Lymphocytes 1.3 10^3/uL (1.2-3.4); Absolute Monocytes 0.9 10^3/uL (0.1-0.6); Absolute Neutrophils 5.2 10^3/uL (1.4-6.5); Hematocrit 39.3 % (39.0-52.0); Hemoglobin 13.3 g/dL (13.0-18.0); Mean Corp Hgb Conc. 33.8 g/dL (33.0-37.0); Mean Corpuscular Hgb 29.2 pg (27.0-31.0); Mean Corpuscular Volume 86.4 fL (80.0-94.0); Mean Platelet Volume 10.2 fL (7.4-10.4); Nucleated Red Blood Cells % 0 % (-); Platelet Count 221 10^3/uL (130-400); Red Blood Cell Count 4.55 10^6/uL (4.70-6.10); Red Cell Dist. Width 12.7 % (11.5-14.5); White Blood Cell Count 8.1 10^3/uL (4.8-10.8)
[2024-07-01 08:30] LABS: Glucose - Point of Care 73 mg/dl (70-99)
[2024-07-01 08:31] LABS: ALT (SGPT) 16 U/L (0-50); AST (SGOT) 18 U/L (17-59); Albumin 3.7 g/dl (3.5-5.0); Alkaline Phosphatase 66 U/L (38-126); Blood Urea Nitrogen 35 mg/dl (9-20); Calcium 8.5 mg/dl (8.4-10.2); Carbon Dioxide 36 mmol/L (22-30); Chloride 91 mmol/L (98-107); Estimated Creatinine Clearance 42 ml/min; Glucose 79 mg/dl (70-99); Potassium 2.5 mmol/L (3.5-5.1); Sodium 137 mmol/L (135-145); Total Bilirubin 0.7 mg/dl (0.2-1.3); Total Protein 6.8 g/dl (6.3-8.2); eGFR 51.03
[2024-07-01] MEDS: LASIX 40 MG IV ×2 (09:00→17:35)
[2024-07-01] MEDS: ASPIR LOW (ENTERIC COATED) 81 MG PO (09:01)
[2024-07-01] MEDS: ZETIA 10 MG PO (09:01)
[2024-07-01] MEDS: NEURONTIN 300 MG PO ×3 (09:01→20:59)
[2024-07-01] MEDS: PROTONIX 40 MG PO (09:01)
[2024-07-01] MEDS: CRESTOR 20 MG PO (09:02)
[2024-07-01] MEDS: ALDACTONE 12.5 MG PO (09:02)
[2024-07-01] MEDS: NOVOLOG FLEXPEN-LOW RESISTANCE SC ×3 (09:02→18:20)
--- NOTE | 2024-07-01 09:02 | W.PN.HOSP.TC ---
Addendum entered and electronically signed by Gabe Pearson MD 07/01/24 16:02:
Acute hypoxemic respiratory failure
Original Note:
Today's Communication/Plan
-
IV diuretics. Potassium replacement.
Assessment / Plan
Assessment / Plan
Physical exam:
General: Acute on chronically ill
HEENT: Normocephalic, Atraumatic and Moist Mucous Membranes
Respiratory: Decreased breath sounds bilateral; Bilateral fine crackles, negative Wheezes or Rhonchi
Cardiac: Regular Rhythm and S1/S2
GI: Soft, Nontender and Nondistended
Musculoskeletal: Bilateral lower extremity edema. No Clubbing, No Cyanosis
Neuro: Awake, Alert and Oriented
Psych: Calm
A/P:
#Acute on Chronic diastolic CHF
77% on room air, 94% 3 L nasal cannula upon admission. He uses bedtime oxygen that has been using all day long.
I/O, daily weight
-Cardiology consult appreciated
BNP 1120
-Patient on spironolactone 12.5 mg daily, Lasix 40 mg daily
-Continue spironolactone 12.5 mg daily
-Will continue Lasix 40 mg IV BID
CXR: Mild to moderate CHF/progressed
2D echo 05/19/2023: EF 55 to 60% normal LVS LVSF, pulm arterial pressure 37-42 mmHg, mild TR
EKG: NSR 79 bpm, QTc 481 MS
#Pulmonary HTN
-Continue tadalafil 40 mg daily, Opsumit 10 mg daily on hold
-Pulmonary consult appreciated
# Hypokalemia
Replete and trend
Back to his scheduled home doses of potassium
Recheck in afternoon
#COPD�no acute exacerbation
#ex-smoker
50-year smoker 1 pack a day quit 4 weeks ago beginning in June 2024
#HTN�benign
-Stable
--Continue amlodipine 5 mg daily, Toprol XL 25 mg every afternoon
#CKD 3B
Creat with mild bump
Follow BMP
#HTN�benign
-Continue amlodipine 5 mg daily, Toprol XL 25 mg every afternoon
#HLD
- Continue Crestor 20 mg daily, Zetia 10 mg daily
#DM 2
-Accu-Cheks with SSI, check HgbA1c
-Basaglar 60 units SQ at bedtime(will cont Basaglar 30 units every evening for now)
#CAD
#CABG x 3 vessel 2013
Loop recorder
-Continue aspirin 81 mg daily, Zetia, Crestor
#Chronic back pain on chronic oral opiates as needed
#L5-S1 laminectomy 03/21/2022
#Back surgery with discectomy 1997
Patient due for elodia replacement lumbar and new elodia insertion thoracic July [address] Johnson
-Continue gabapentin 300 mg 3 times daily
-Continue oxycodone/acetaminophen-reports he takes more than bedtime so increased frequency for now.
#Carotid stenosis
#CEA 03/21/2023
Continue Crestor 20 mg daily, Zetia 10 mg daily
#PVD
#Anemia
-Hgb stable
Arthritis
DVT prophylaxis
Subcu heparin
Full code
Total time spent on today's encounter was 52 minutes which included time spent in counseling the patient/family regarding diagnosis and treatment plan as listed above, goals of care, and symptom management. Case was discussed with nursing staff,
specialists, and care coordinators/case management. All labs and imaging personally reviewed by me. Remainder the time spent in detailed review of previous records, lab data, imaging, and other medical provider documentation.
Anticipated Discharge: > 48 hours
Subjective/Interval History
-
Date of Service: July 01, 2024
Patient feels better today. Still shortness of breath. Still on significant supplemental oxygen. Afebrile
Objective Data
-
Labs:
Laboratory Results
07/01/24
07:19
WBC 8.1
Hgb 13.3
Hct 39.3
Plt Count 221
Sodium 137
Potassium 2.5 L* D
Chloride 91 L
Carbon Dioxide 36 H
BUN 35 H
Creatinine 1.5 H
Glucose 79
Calcium 8.5
Total Bilirubin 0.7
AST 18
ALT 16
Alkaline Phosphatase 66
Vital Signs:
Vital Signs
Temp Pulse Resp BP Pulse Ox
97.3 F 65 20 114/63 94
07/01/24 07:44 07/01/24 07:44 07/01/24 07:44 07/01/24 07:44 07/01/24 07:44
I&O
06/30/24 07/01/24 07/02/24
06:59 06:59 06:59
Intake Total 480 / 480 1620 / 1620
Output Total 1225 / 1225
Balance -745 / -745 1620 / 1620
--- NOTE | 2024-07-01 09:42 | CM ---
CM following re: discharge planning.
Reviewed pt's chart, met with pt.
Pt is a 68 year old male, admitted with primary dx of Pulmonary HTN.
Pt reports he lives with mother in a split level house, 4 steps to enter, has no children. Pt reports he has home oxygen concentrator, returned back to [facility] portable O2 tank. Pt stated he uses Oxygen only at night. Pt reports he has a cane
and a walker and does not use them. Pt expressed his desire to return back home at discharge.
PCP: Marcus Smith
Pharmacy: [address]
D/C plan: home with anticipated no needs.
CM will follow with discharge plan updates as hospitalization progresses
[2024-07-01] MEDS: KCL 270 MEQ IV (10:08)
[2024-07-01] MEDS: KCL 40 MEQ PO ×4 (10:41→21:00)
[2024-07-01 11:10] VITALS: BP 132/72
[2024-07-01 11:54] LABS: Glucose - Point of Care 57 mg/dl (70-99)
[2024-07-01 12:12] LABS: Glucose - Point of Care 101 mg/dl (70-99)
--- NOTE | 2024-07-01 12:45 | GLUCOSE ---
11:50 Pt's BS 57. Pt given 4 ounces of juice. Pt's recheck BS at 12:10 pm- 101. Pt ordered lunch. Cont to assess patient status.
[2024-07-01] MEDS: ROBITUSSIN 100 MG PO (14:20)
--- NOTE | 2024-07-01 14:38 | W.PN.PUL3 ---
Today's Communication / Plan
-
Continue IV diuresis
Wean down oxygen as able-currently on 4 L and 97% O2 sat(usually only on nocturnal supplemental oxygen).
Will continue to follow
Assessment
-
Patient is a 67 year old M with history of COPD, ILD, smoker, ETOH abuse, CAD s/p CABG in past, pulmonary hypertension on pulmonary vasodilators, admitted with hypoxemia and shortness of breath. Patient apparently had history of syncopal episode
last year. Underwent repeat cardiac catheterization that showed patent grafts with multivessel coronary artery disease, pulmonary arterial hypertension. He was started on pulmonary vasodilators by cardiology. Now complaining of several days of
progressive shortness of breath, worsening hypoxemia. Sent to the emergency room for evaluation. Found to have chest x-ray with increased bilateral interstitial markings and increased proBNP.
Acute on chronic hypoxemic respiratory failure. Usually only on 2 L nocturnal oxygen. Currently on 4 L nasal cannula at rest.
Acute HFpEF, volume overload with diastolic heart failure
Chest x-ray: Showed changes consistent with pulmonary edema.
Increased proBNP.
Subacute cough: Could be from pulmonary edema. Also adverse effect from Opsumit or smokers cough
History of COPD: Not in acute exacerbation
History of interstitial lung disease: Mild in 2022. Undifferentiated. Prior asbestos exposure.
Pulmonary arterial hypertension on pulmonary vasodilators.
Possibly had very tired.
Liver cirrhosis noted-fatty liver/alcohol suspected.
Per outpatient notes refused GI evaluation
Conditions present prior to admission
S/p RCEA 03/13/2023 w/Pericardial bovine patch angioplasty
Coronary disease with bypass surgery
Sternal nonunion, with sternal rewiring 2015
Interstitial disease per prior CT imaging-undifferentiated.
Apical disease per head and neck CT 02/17/2023.
CT chest 04/08/2023: Reviewed, showed widespread bilateral prominent interstitial markings most likely chronic with superimposed mild bibasilar subsegmental atelectasis. No pulmonary nodules.
Asbestos exposure history
Bronchiolitis with pleural plaques per outpatient records
Has seen pulmonary in [place]
Pulmonary Arterial hypertension: On pulmonary vasodilators following with Dr. Bundy
Obstructive sleep apnea: Declined therapy.
On 2 L nocturnal oxygen only.
Fatty liver/possibly cirrhosis On ultrasound 02/19/2024.
Hypertension
Hyperlipidemia
Diabetes
GERD
?Mild at best COPD/Mild paraseptal emphysema on CAT scan
Pulmonary function testing 02/03/2024: Pulmonary function testing more consistent with restrictive lung disease likely from obesity. Severe decreased diffusion capacity likely related to his pulmonary hypertension. Flow volume curve not
consistent with airflow obstruction.
ILD-undifferentiated
50+ pack years of smoking, ongoing reportedly was stopped in June 2024.
Chronic kidney disease stage IIIb
Loop recorded in place
Obesity
Family history of coronary disease, brother
Alcohol abuse history
Past Surgical History:
CEA 03/21/2023
CABG x 3 vessel 2013
L5-S1 laminectomy 03/21/2022
Back surgery with discectomy 1997
CTR bilateral hands
Tonsillectomy
Plan:
Clinical picture consistent with heart failure, volume overload, increased proBNP and increased interstitial markings on chest x-ray.
-
Continue IV diuretics
Chest x-ray 07/01/2024: Reviewed, persistent pulmonary vascular congestion.
If there is persistent symptoms and persistent infiltrate in his repeat CT chest will be recommended to rule out progressive ILD as well as perhaps repeat echocardiogram. Hold for now.
-
Again, pulmonary arterial hypertension-possibly hereditary per outpatient record.
Patient does have cirrhosis but no portal hypertension.
Currently on tadalafil
Recently started on Opsumit initially feeling better on it-currently on hold for the last few days as he was not feeling good on it. Sometimes pulmonary vasodilators may provoked pulmonary edema, dyspnea to be contemplated if occurs again when
restarted.
-
Emphysema on CAT scan 2022-prior pulmonary function testing without airflow obstruction.
Patient not on bronchodilators as does not have any significant airflow obstruction on most recent PFTs.
No evidence for acute exacerbation or acute bronchitis
Continue as needed nebulizers
No indication for systemic corticosteroid
Currently not following with pulmonary.
-
Likely has smoker's cough-recently quit smoking.
-
Hypoxemia:
He usually only uses nocturnal oxygen 2 L
There is no recent 6-minute walk testing to determine whether this patient needs ambulatory oxygen. Currently on 4 L
Wean as able. Maintain pulse ox above 90%.
-
Obstructive sleep apnea may be contributing to pulmonary hypertension as well: Untreated. Patient refused therapy in the past
He is aware of ramifications of untreated obstructive sleep apnea including cardiovascular risk which in his case recurrences high due to underlying coronary artery disease status post CABG.
-
DVT prophylaxis heparin subcu
-
Pulmonary will continue to follow briefly depending on response a CT of the chest may be necessary.
Last time seen in our office was in 2022
Patient canceled appointment 05/19/[address] Som Marie. Patient advised to reestablish care. Information will be left in the chart.
-
Defer pulmonary vasodilation to cardiology as she follows up with Dr. Bundy for this.

Diagnostic Data
CXR 05/16/23- Relatively stable examination, given the slightly diminished degree of inspiration. Generalized prominence of bronchovascular markings; this could suggest mild vascular congestion, possible chronic interstitial fibrotic changes.
No focal consolidation.
LDCT 04/08/23- Widespread bilateral prominent interstitial markings most likely chronic with some superimposed mild bibasilar subsegmental atelectasis. Mild cardiomegaly, coronary artery calcifications and sternal wires. No pulmonary nodule
Spirometry 07/08/13- FEV1 1.8L 58%, FVC 2.27L 56%, ratio 79. Post FEV1 1.79L 58%. TLC 3.73L 62%, DLCO 70%
ECHO 04/04/23- �1.� Left ventricle: Normal size and function with a visually estimated ejection�fraction of 55 to 60%.� No regional wall motion abnormalities.� Stage II�diastolic dysfunction.
�2.� Right ventricle: Normal
�3.� Atria: Normal
�4.� Mitral valve: Trace mitral regurgitation
�5.� Aortic valve: No aortic stenosis or aortic insufficiency
�6.� Tricuspid valve: Mild tricuspid regurgitation with estimated pulmonary�artery systolic pressures of 35 mmHg
�7.� When compared to most recent echocardiogram from 01/01/2023 there has been no�significant change
-
Right heart catheterization 09/29/2023:
HEMODYNAMICS (mmHg) :
RA (m) : 16
RV (s/d) : 68/9, 13
PA (s/d,m) : 70/29, 43
PCWP (m) : 15
AO (s/d, m) : 148/70, 99
LV (s/d) : 149/11
LVEDP (m) : 18
1. Patent HALL-LAD and sequential SVG-OM 2-PDA. Severe multivessel [place] coronary artery disease
2. Elevated pulmonary vascular resistance to 6.8 Wood units
3. Compensated left ventricular filling pressures with a pulmonary capillary wedge pressure measuring 15 mmHg and LVEDP measuring 18 mmHg
-
RHC 05/16/23- Hemodynamics (mmHg):
RA (m) : 18
RV (s/d,m) : 83/11, 22
PA (s/d, m) : 84/27/46
PCWP (m) : 24
Cardiac Output : 2.45 L/min and Cardiac Index : 1.37 L/min/m-2
Systemic Vascular Resistance: 33.9 Wood units = 2710 dynes*sec*cm-5
Pulmonary Vascular Resistance: 9.0 Wood units = 718 dynes*sec*cm-5
CONCLUSION: Elevated right left ventricular filling pressures with pulmonary hypertension.� Findings are consistent with WHO Group II and Group V
Subjective Data
-
Date of Service:
Date of Service: July 01, 2024
Chief Complaint: Pulmonary Follow Up (Hypoxemic respiratory failure.)
Subjective:
Patient offers no new complaints
Overall he feels very since admission
Denies cough or phlegm production
Review of Systems
General: Fever (n)
Cardiopulmonary: Dyspnea (improving), Cough (n) and Sputum Production (n)
GI: Abdominal Pain (n)
Objective Data
Data Reviewed
Vital Signs / I&O / Oxygen:
Vital Signs
Temp Pulse Resp BP Pulse Ox
97.6 F 67 16 132/72 97
07/01/24 11:10 07/01/24 11:10 07/01/24 11:10 07/01/24 11:10 07/01/24 11:10
Intake and Output
06/30/24 07/01/24 07/02/24
06:59 06:59 06:59
Intake Total 480 / 480 1620 / 1620
Output Total 1225 / 1225
Balance -745 / -745 1620 / 1620
SaO2 97
Nasal Cannula flow liters per 4
minute
Physical Exam
General: Comfortable
HEENT: Normocephalic
Cardiovascular: S1-S2
Respiratory: Crackles
GI: Non Distended
Neurology: Awake, AO x 3 and No Motor Deficits
Skin: Warm
Labs/Micro/Reports
Lab Data
07/01/24 07:19
07/01/24 07:19
--- NOTE | 2024-07-01 15:05 | PN.CDI ---
CDI
- -
CDI:
Physician Documentation Request
Admit Date: 06/29/24 18:53
Dear Doctor Michel,
Patient is admitted for management of CHF.
06/29 hospitalist update note states ' Acute on chronic hypoxic respiratory insufficiency'
Pulmonary progress note states 'Acute on chronic hypoxemic respiratory failure..... He usually only uses nocturnal oxygen 2 L'
Nursing documentation shows patient on 5 L in ED.
ED physician documentation/exam 'moderate respiratory distress, decreased breath sounds, wheezing bilaterally'
Respirations 13-33 on presentation.
Please clarify which of the following accurately represents the patient's respiratory status:
Acute hypoxemic respiratory failure
Hypoxia
Other
Additional information for Respiratory Failure:
Recognized criteria for Respiratory Failure (Source: [facility] Hospitalist Apr 2013)
ABGs: (1 or more) Symptoms Please indicate type if known
1. p)2 <60 or RA SPO2 <91% on RA 1. Tachypnea, SOB, dyspnea Hypoxic
2. pCO2 50 and pH <7.35 2. Use of accessory muscles Hypercapnic
3. pO2 decrease of pCO2 increase by 3. Pallor or cyanosis Hypoxic and Hypercapnic
10 mmHg from baseline if known 4. Anxiety or restlessness Unable to determine
5. Unable to speak in full sentences
Supplemental O2 of > 40% (5LPM) Intubation is not required
Use of terms such as suspected, likely, concern for, or probable (associated with a specific diagnosis that is being evaluated, monitored, or treated as if it exists) are acceptable and can be coded in the inpatient setting, when documented at the
time of discharge.
Thank you,
Yvette Goodwin RN, BSN
CDI Specialist
tiger text
Please use your independent medical judgment in providing your response.
[2024-07-01 15:35] VITALS: BP 141/63
--- NOTE | 2024-07-01 15:51 | W.PN.CARDCBS ---
Addendum entered and electronically signed by Farheen Bundy MD 07/01/24 16:35:
I saw and examined the patient.
The Decontamination Technician's note was reviewed and I agree with the note.
Comment: Exam breathing comfortably on oxygen. Trace lower extremity edema. Crackles at the bases bilateral. Distant heart sounds regular.
His mother is at the bedside. Patient well-known to me. Likely hereditary pulmonary arterial hypertension. In addition patient has some degree of COPD/interstitial lung disease for which she is going to follow with pulmonary. He was admitted
with hypoxemia, volume overload and not taking his Opsumit. Previously pulmonary arterial hypertension symptoms improved on Opsumit and Adcirca. He continues to do well with diuresis. Weight continues to decrease.
-Continue IV Lasix
-Replete potassium and check magnesium level
-Check echocardiogram
-His mother brought in Opsumit and Adcirca and he will resume. He discontinued Opsumit because of 'cough '. Opsumit not likely cause a cough and cough is more likely heart failure with preserved ejection fraction/right heart failure and/or
underlying lung disease which we discussed. He is willing to resume.
-I did discuss with him once again the critical illness of pulmonary arterial hypertension that he does have. He asked about future back surgery with screws and I explained to him that he was not a candidate.
-Continue to follow closely. Continue to work on compliance with patient.
-Alcohol abstinence is paramount.
Original Note:
Today's Communication / Plan
-
Patient's home supplies of Adcirca and Opsumit have arrived, discussed with nursing about sending to pharmacy so they can be barcode and we can resume dosing CASEY
54 min face to face and coordination of care including heling patient with figuring out how to obtain nonformulary meds
Impression / Plan
-
PCP: Ezekiel Avila
Cardiology: Dr. EUNICE Cox
Impression:
Acute on chronic hypoxic respiratory insufficiency
Recent admission for acute on chronic hypoxic respiratory failure and probable AE ILD vs AE asthma 06/14/2024 until 06/16/2024
Acute on chronic HFpEF
Pulmonary HTN
likely hereditary PHTN so WHO group 1 given likely hereditary but also likely some WHO group 3 due to underlying lung disease including JERI, ILD and COPD
chronically on Adcirca (tadalafil) 20 mg daily and Opsumit 10 mg daily
ETOH use disorder
CAD
s/p CABG in 07/2013 with HALL to LAD, SVG sequential to OM, PDA
Sternal instability with sternal pain, s/p sternal rewire and muscle flap 06/16/14
Right carotid stenosis
s/p right CEA 03/13/2023
Type 2 DM
COPD
HTN
Syncope 04/2023
Dyslipidemia
Tobacco abuse
GERD
Lumbar spinal Stenosis s/p laminectomy L5-S1
COPD
Bilateral Carpal Tunnel Surgery
Bilateral Eye Surgeries
LINQ monitor May 2023
Hypokalemia
RHC 05/16/2023: Hemodynamics (mmHg): RA (m) : 1; RV (s/d,m) : 83/11, 22; PA (s/d, m) : 84/27/46; PCWP (m) : 24; Cardiac Output : 2.45 L/min and Cardiac Index : 1.37 L/min/m-2
R/LHC 09/29/23: Patent HALL-LAD and sequential [id number]-PDA, elevated PVR at 6.8 Wood units, PCWP 15 mmHg and LVEDP 18 mmHg
Echo 01/06/2023: EF 60%, stage II DD w/ increased filling pressures. Mild TR w/ PAP 39 mmHg
Echo 04/04/2023:�EF 55 to 60% with normal wall motion.� Stage II DD, mild MR with PAP 35 mmHg
Echo 05/19/2023: EF 55-60%, normal RV, normal atria, mild TR, pulmonary artery pressure 37-42 mmHg, similar to April 2023
Plan:
-Weight is down 2 lbs overnight with Lasix 40 mg IV BID. Patient was taking Lasix 40 mg PO daily prior to admission.
-EF was 55-60% by echo 05/19/23, recheck echo ordered by me
-Outpatient dose of Adcirca 20 mg daily should be continued. This is not a formulary drug at and his mother brought in his supply from home on 07/01/2024 and we will send to the pharmacy for bar coding and resume dosing CASEY.
-Outpatient dose of Opsumit 10 mg daily should be resumed. Patient stopped taking Opsumit on his own prior to admission as he felt it made his cough worse, but he has been on Opsumit for 6 weeks and the cough is only worse in the last 1 to 2 weeks.
At this point the plan is to restart Opsumit and if he has recurrent acute HF not easily explained with another process then we will consider discontinuation of Opsumit at that time. This is not a formulary drug at and his mother brought in his
supply from home on 07/01/2024 and we will send to the pharmacy for bar coding and resume dosing CASEY.
-Hospitalist attending supplemented potassium which was low at 2.5 on 07/01/2024. BMP and magnesium level ordered by me now to recheck levels before additional doses of KCl given. Patient was given K rider 40 mEq +2 additional doses of KCl PO
already on 07/01/24
HPI: Patient came to ER today after he was noted to be hypoxic in the cardiology office and is now likely to be admitted with acute HFpEF in the setting of PHTN. Patient was just admitted to 06/14/2024 until 06/16/2024 with probable AE ILD vs
AE asthma. Patient reports that during that admission he received a dose of IV Lasix, but patient was not seen by cardiology. He was discharged home on prednisone. Patient was scheduled to be seen in the office today after this admission and also
to follow-up on a phone call his mother made to our office yesterday saying that he was more SOB and coughing and also reported that on his own he had stopped taking his Opsumit. Patient has known pulmonary hypertension and was started on Adcirca
20 mg daily 03/2024. A bit later he received approval for Opsumit and this was started at 10 mg daily 05/2024. Patient then called our office to report feeling lightheaded and dizzy and was reportedly hypoxic at 85% on RA and so our office advised
him to go to the ER on 06/14/2024. Then as noted above the patient was admitted and received a dose of IV Lasix along with steroids for possible acute exacerbation of either ILD or asthma, but was not seen by cardiology. He then called our office
yesterday report he was no longer taking the Opsumit and so we attempted to see him in the office today for a visit but he had a pulse ox of 77% on RA and was placed on 4 L oxygen via NC in our office and transported to ER. Patient is now on 6 L
NC and reports SOB has improved. Patient denies weight gain and says that he barely eats anything at home. Patient reports good urine output after daily dose of Lasix 40 mg daily. Patient complains of left ankle edema and denies bloating.
Progress Note - Security Auditor
Subjective
Date of Service: July 01, 2024
He does not feel any better
Objective
Labs:
07/01/24 07:19
Labs
Hgb 13.3 g/dL (13.0-18.0) 07/01/24 07:19
Hct 39.3 % (39.0-52.0) 07/01/24 07:19
Plt Count 221 10^3/uL (130-400) 07/01/24 07:19
PT Cancelled 06/29/24 13:19
INR Cancelled 06/29/24 13:19
Sodium 137 mmol/L (135-145) 07/01/24 07:19
Potassium 2.5 mmol/L (3.5-5.1) L* D 07/01/24 07:19
BUN 35 mg/dl (9-20) H 07/01/24 07:19
Creatinine 1.5 mg/dL (0.7-1.3) H 07/01/24 07:19
Glucose 79 mg/dl (70-99) 07/01/24 07:19
Troponins
06/29/24
13:00
Troponin I 0.016
Vital Signs and I&O:
Vital Signs
Temp Pulse Resp BP Pulse Ox
97.6 F 67 16 132/72 97
07/01/24 11:10 07/01/24 11:10 07/01/24 11:10 07/01/24 11:10 07/01/24 11:10
Vital Signs
Temp Pulse Resp BP Pulse Ox
97.6 F 67 16 132/72 97
07/01/24 11:10 07/01/24 11:10 07/01/24 11:10 07/01/24 11:10 07/01/24 11:10
Intake & Output
06/29/24 06/30/24 07/01/24 07/02/24
06:59 06:59 06:59 06:59
Intake Total 480 / 480 1620 / 1620
Output Total 1225 / 1225
Balance -745 / -745 1620 / 1620
Physical Exam
Physical Exam
GEN: NAD. AAO x 3.�
HEENT:�MMM, EOMI
LUNGS: Wearing oxygen at 4 L NC. No audible wheeze
CV: SR on tele
ABD : ND
EXT: No edema B/L LE
NEURO: No focal neurologic deficits
[2024-07-01 16:41] LABS: Blood Urea Nitrogen 37 mg/dl (9-20); Calcium 8.8 mg/dl (8.4-10.2); Carbon Dioxide 31 mmol/L (22-30); Chloride 92 mmol/L (98-107); Estimated Creatinine Clearance 40 ml/min; Glucose 146 mg/dl (70-99); Magnesium 1.2 mg/dl (1.6-2.3); Potassium 3.4 mmol/L (3.5-5.1); Sodium 133 mmol/L (135-145); eGFR 47.23
[2024-07-01] MEDS: TOPROL XL 25 MG PO (17:34)
[2024-07-01 18:19] LABS: Glucose - Point of Care 104 mg/dl (70-99)
[2024-07-01 19:54] VITALS: BP 97/59
--- NOTE | 2024-07-01 20:28 | W.PN.UPDATE ---
Update Note
Progress Note Update
magnesium level 1.2, will replete with magnesium KEVIN glynn 2g x1
--- NOTE | 2024-07-01 20:50 | PTCARENOTE ---
Notified house provider of Mag- 1.2. See MAR for orders
[2024-07-01 20:58] LABS: Glucose - Point of Care 309 mg/dl (70-99)
[2024-07-01] MEDS: LANTUS 0.3 UNITS SC (20:58)
[2024-07-01] MEDS: MAGNESIUM SULFATE 50 IV (20:58)
[2024-07-01 23:11] LABS: Glucose - Point of Care 245 mg/dl (70-99)
[2024-07-01 23:34] VITALS: BP 98/43
[2024-07-02 02:32] LABS: Glucose - Point of Care 191 mg/dl (70-99)
[2024-07-02 03:56] VITALS: BP 122/59
[2024-07-02 05:26] VITALS: BMI 26.0
[2024-07-02 07:30] LABS: % Immature Granulocytes 0.7 % (0-0.5); % Lymphocytes 18.1 % (20.5-51.1); % Monocytes 12.8 % (1.7-9.3); % Neutrophils 60.4 % (42.2-75.2); Absolute Basophils 0.1 10^3/uL (0-0.2); Absolute Eosinophils 0.5 10^3/uL (0-0.7); Absolute Immature Granulocytes 0.1 10^3/uL (0-0.05); Absolute Lymphocytes 1.3 10^3/uL (1.2-3.4); Absolute Monocytes 0.9 10^3/uL (0.1-0.6); Absolute Neutrophils 4.3 10^3/uL (1.4-6.5); Hematocrit 39.5 % (39.0-52.0); Hemoglobin 13.3 g/dL (13.0-18.0); Mean Corp Hgb Conc. 33.7 g/dL (33.0-37.0); Mean Corpuscular Hgb 29.1 pg (27.0-31.0); Mean Corpuscular Volume 86.4 fL (80.0-94.0); Nucleated Red Blood Cells % 0 % (-); Platelet Count 206 10^3/uL (130-400); Red Blood Cell Count 4.57 10^6/uL (4.70-6.10); Red Cell Dist. Width 12.6 % (11.5-14.5); White Blood Cell Count 7.1 10^3/uL (4.8-10.8)
[2024-07-02 07:46] LABS: Glucose - Point of Care 131 mg/dl (70-99)
[2024-07-02 07:55] VITALS: BP 133/60
[2024-07-02 08:06] LABS: ALT (SGPT) 15 U/L (0-50); AST (SGOT) 17 U/L (17-59); Albumin 3.8 g/dl (3.5-5.0); Alkaline Phosphatase 70 U/L (38-126); Blood Urea Nitrogen 40 mg/dl (9-20); Calcium 9.2 mg/dl (8.4-10.2); Carbon Dioxide 32 mmol/L (22-30); Chloride 95 mmol/L (98-107); Estimated Creatinine Clearance 37 ml/min; Glucose 147 mg/dl (70-99); Potassium 3.7 mmol/L (3.5-5.1); Sodium 136 mmol/L (135-145); Total Bilirubin 0.7 mg/dl (0.2-1.3); Total Protein 6.7 g/dl (6.3-8.2); eGFR 43.91
[2024-07-02] MEDS: NOVOLOG FLEXPEN-LOW RESISTANCE SC (09:17)
[2024-07-02] MEDS: ALDACTONE 12.5 MG PO (09:20)
[2024-07-02] MEDS: ZETIA 10 MG PO (09:22)
[2024-07-02] MEDS: KCL 40 MEQ PO ×3 (09:22→21:13)
[2024-07-02] MEDS: ASPIR LOW (ENTERIC COATED) 81 MG PO (09:22)
[2024-07-02] MEDS: NEURONTIN 300 MG PO ×3 (09:22→21:13)
[2024-07-02] MEDS: CRESTOR 20 MG PO (09:22)
[2024-07-02] MEDS: NON-FORMULARY ITEM 40 MG PO (09:23)
[2024-07-02] MEDS: PROTONIX 40 MG PO (09:23)
[2024-07-02] MEDS: NON-FORMULARY ITEM 10 MG PO (09:24)
[2024-07-02] MEDS: FLUSH (NSS) 1 FLUSH IV ×2 (09:25→16:33)
[2024-07-02] MEDS: LASIX 40 MG IV ×2 (09:25→16:32)
--- NOTE | 2024-07-02 09:30 | W.PN.HOSP.TC ---
Addendum entered and electronically signed by Gabe Pearson MD 07/02/24 16:13:
JULIETH
Original Note:
Today's Communication/Plan
-
IV diuretics.
Assessment / Plan
Assessment / Plan
Physical exam:
General: Acute on chronically ill
HEENT: Normocephalic, Atraumatic and Moist Mucous Membranes
Respiratory: Decreased breath sounds bilateral; Bilateral fine crackles, negative Wheezes or Rhonchi
Cardiac: Regular Rhythm and S1/S2
GI: Soft, Nontender and Nondistended
Musculoskeletal: Bilateral lower extremity edema. No Clubbing, No Cyanosis
Neuro: Awake, Alert and Oriented
Psych: Calm
A/P:
#Acute on Chronic diastolic CHF
77% on room air, 94% 3 L nasal cannula upon admission. He uses bedtime oxygen that has been using all day long.
I/O, daily weight
-Cardiology consult appreciated
BNP 1120
-Patient on spironolactone 12.5 mg daily, Lasix 40 mg daily
-Continue spironolactone 12.5 mg daily
-Will continue Lasix 40 mg IV BID
CXR: Mild to moderate CHF/progressed
2D echo 05/19/2023: EF 55 to 60% normal LVS LVSF, pulm arterial pressure 37-42 mmHg, mild TR
EKG: NSR 79 bpm, QTc 481 MS
#Pulmonary HTN
-Continue tadalafil 40 mg daily, Opsumit 10 mg daily on hold
-Pulmonary consult appreciated
# Hypokalemia
Replete and trend
Back to his scheduled home doses of potassium
Recheck in afternoon
#COPD�no acute exacerbation
#ex-smoker
50-year smoker 1 pack a day quit 4 weeks ago beginning in June 2024
#HTN�benign
-Stable
--Continue amlodipine 5 mg daily, Toprol XL 25 mg every afternoon
#CKD 3B
Creat with mild bump
Follow BMP
#HTN�benign
-Continue amlodipine 5 mg daily, Toprol XL 25 mg every afternoon
#HLD
- Continue Crestor 20 mg daily, Zetia 10 mg daily
#DM 2
-Accu-Cheks with SSI, check HgbA1c
-Basaglar 60 units SQ at bedtime(will cont Basaglar 30 units every evening for now)
#CAD
#CABG x 3 vessel 2013
Loop recorder
-Continue aspirin 81 mg daily, Zetia, Crestor
#Chronic back pain on chronic oral opiates as needed
#L5-S1 laminectomy 03/21/2022
#Back surgery with discectomy 1997
Patient due for elodia replacement lumbar and new elodia insertion thoracic July [address] Johnson
-Continue gabapentin 300 mg 3 times daily
-Continue oxycodone/acetaminophen-reports he takes more than bedtime so increased frequency for now.
#Carotid stenosis
#CEA 03/21/2023
Continue Crestor 20 mg daily, Zetia 10 mg daily
#PVD
#Anemia
-Hgb stable
Arthritis
DVT prophylaxis
Subcu heparin
Full code
Total time spent on today's encounter was 52 minutes which included time spent in counseling the patient/family regarding diagnosis and treatment plan as listed above, goals of care, and symptom management. Case was discussed with nursing staff,
specialists, and care coordinators/case management. All labs and imaging personally reviewed by me. Remainder the time spent in detailed review of previous records, lab data, imaging, and other medical provider documentation.
Anticipated Discharge: 24 - 48 hours
Subjective/Interval History
-
Date of Service: July 02, 2024
Patient feels better overall. No shortness of breath. No chest pain. Afebrile
Objective Data
-
Labs:
Laboratory Results
07/02/24
07:10
WBC 7.1
Hgb 13.3
Hct 39.5
Plt Count 206
Sodium 136
Potassium 3.7
Chloride 95 L
Carbon Dioxide 32 H
BUN 40 H
Creatinine 1.7 H
Glucose 147 H
Calcium 9.2
Total Bilirubin 0.7
AST 17
ALT 15
Alkaline Phosphatase 70
Vital Signs:
Vital Signs
Temp Pulse Resp BP Pulse Ox
97.5 F 57 20 133/60 92
07/02/24 07:55 07/02/24 07:55 07/02/24 07:55 07/02/24 07:55 07/02/24 09:16
I&O
07/01/24 07/02/24 07/03/24
06:59 06:59 06:59
Intake Total 1620 / 1620 480 / 480
Output Total 1575 / 1575
Balance 1620 / 1620 -1095 / -1095
--- NOTE | 2024-07-02 10:46 | PN.CDI ---
CDI
- -
CDI:
Physician Documentation Request
Admit Date: 06/29/24 18:53
Dear Doctor Michel,
Patient admitted for acute on chronic diastolic CHF
Patient receiving IV lasix.
Creatinine results
Laboratory Tests
06/29/24 06/30/24 07/01/24
13:00 07:21 07:19
Creatinine 1.2 1.4 H 1.5 H
07/01/24 07/02/24
16:08 07:10
Creatinine 1.6 H 1.7 H
Could you provide a diagnosis that supports the above lab abnormalities and additional evaluation/ monitoring:
JULIETH
Abnormal lab value clinically insignificant
Other
Use of terms such as suspected, likely, concern for, or probable (associated with a specific diagnosis that is being evaluated, monitored, or treated as if it exists) are acceptable and can be coded in the inpatient setting, when documented at the
time of discharge.
Thank you,
Yvette Goodwin RN, BSN
CDI Specialist
tiger text
Please use your independent medical judgment in providing your response.
[2024-07-02 10:55] VITALS: BMI 26.0
[2024-07-02 11:39] LABS: Glucose - Point of Care 182 mg/dl (70-99)
[2024-07-02 11:55] VITALS: BP 121/67
[2024-07-02] MEDS: DUONEB 3 ML INH ×3 (12:08→19:20)
[2024-07-02] MEDS: NOVOLOG FLEXPEN-LOW RESISTANCE 1 UNITS SC (13:07)
--- NOTE | 2024-07-02 15:01 | W.PN.PUL3 ---
Today's Communication / Plan
-
Continue diuresis
Follow electrolytes and renal function
Home oxygen assessment closer to discharge
No indication for systemic corticosteroids or long-acting bronchodilators
Recommend outpatient pulmonary follow-up
Sign off
Assessment
-
Patient is a 67 year old M with history of COPD, ILD, smoker, ETOH abuse, CAD s/p CABG in past, pulmonary hypertension on pulmonary vasodilators, admitted with hypoxemia and shortness of breath. Patient apparently had history of syncopal episode
last year. Underwent repeat cardiac catheterization that showed patent grafts with multivessel coronary artery disease, pulmonary arterial hypertension. He was started on pulmonary vasodilators by cardiology. Now complaining of several days of
progressive shortness of breath, worsening hypoxemia. Sent to the emergency room for evaluation. Found to have chest x-ray with increased bilateral interstitial markings and increased proBNP.
Acute on chronic hypoxemic respiratory failure. Usually only on 2 L nocturnal oxygen. Currently on 4 L nasal cannula at rest.
Acute HFpEF, volume overload with diastolic heart failure
Chest x-ray: Showed changes consistent with pulmonary edema.
Increased proBNP.
Subacute cough: Could be from pulmonary edema. Also adverse effect from Opsumit or smokers cough
History of COPD: Not in acute exacerbation
History of interstitial lung disease: Mild in 2022. Undifferentiated. Prior asbestos exposure.
Pulmonary arterial hypertension on pulmonary vasodilators.
Possibly had very tired.
Liver cirrhosis noted-fatty liver/alcohol suspected.
Per outpatient notes refused GI evaluation
Conditions present prior to admission
S/p RCEA 03/13/2023 w/Pericardial bovine patch angioplasty
Coronary disease with bypass surgery
Sternal nonunion, with sternal rewiring 2015
Interstitial disease per prior CT imaging-undifferentiated.
Apical disease per head and neck CT 02/17/2023.
CT chest 04/08/2023: Reviewed, showed widespread bilateral prominent interstitial markings most likely chronic with superimposed mild bibasilar subsegmental atelectasis. No pulmonary nodules.
Asbestos exposure history
Bronchiolitis with pleural plaques per outpatient records
Has seen pulmonary in [place]
Pulmonary Arterial hypertension: On pulmonary vasodilators following with Dr. Bundy
Obstructive sleep apnea: Declined therapy.
On 2 L nocturnal oxygen only.
Fatty liver/possibly cirrhosis On ultrasound 02/19/2024.
Hypertension
Hyperlipidemia
Diabetes
GERD
?Mild at best COPD/Mild paraseptal emphysema on CAT scan
Pulmonary function testing 02/03/2024: Pulmonary function testing more consistent with restrictive lung disease likely from obesity. Severe decreased diffusion capacity likely related to his pulmonary hypertension. Flow volume curve not
consistent with airflow obstruction.
ILD-undifferentiated
50+ pack years of smoking, ongoing reportedly was stopped in June 2024.
Chronic kidney disease stage IIIb
Loop recorded in place
Obesity
Family history of coronary disease, brother
Alcohol abuse history
Past Surgical History:
CEA 03/21/2023
CABG x 3 vessel 2013
L5-S1 laminectomy 03/21/2022
Back surgery with discectomy 1997
CTR bilateral hands
Tonsillectomy
Plan:
Clinical picture consistent with heart failure, volume overload, increased proBNP and increased interstitial markings on chest x-ray.
-
Continue with diuresis as you are. Follow electrolytes and renal function.
-
Chest x-ray 07/01/2024: persistent pulmonary vascular congestion.
He seems to be improving clinically to diuretics. Hold off on CT chest.
He is aware that he will need CT chest imaging at some point in the outpatient setting. Strongly encourage him to follow-up in our office.
-
Again, pulmonary arterial hypertension-possibly hereditary per outpatient record.
Patient does have cirrhosis but no portal hypertension.
Currently on tadalafil
Recently started on Opsumit initially feeling better on it-currently on hold for the last few days as he was not feeling good on it.
To restart Adcirca and Opsumit-follows up with Dr. Bnudy.
Repeat echocardiogram 07/01/2024: Normal left ventricular size. No regional wall motion abnormalities. LVEF 50 to 55%. Stage II diastolic dysfunction. Normal right ventricular size and function. Mild TR. Estimated pulmonary artery pressure 35
to 40 mmHg. No change compared to 05/19/2023.
-
Emphysema on CAT scan 2022-prior pulmonary function testing without airflow obstruction.
Patient not on bronchodilators as does not have any significant airflow obstruction on most recent PFTs.
No evidence for acute exacerbation or acute bronchitis
Continue as needed nebulizers
No indication for systemic corticosteroid
Currently not following with pulmonary.
-
Likely has smoker's cough-recently quit smoking.
-
Hypoxemia:
He usually only uses nocturnal oxygen 2 L
There is no recent 6-minute walk testing to determine whether this patient needs ambulatory oxygen. Currently on 4 L
Wean as able. Maintain pulse ox above 90%.
Hopefully will improve, obtain home oxygen assessment prior to discharge.
-
Obstructive sleep apnea may be contributing to pulmonary hypertension as well: Untreated. Patient refused therapy in the past
He is aware of ramifications of untreated obstructive sleep apnea including cardiovascular risk which in his case recurrences high due to underlying coronary artery disease status post CABG.
-
DVT prophylaxis heparin subcu
-
Last time seen in our office was in 2022
Patient canceled appointment 05/19/[address] Som Marie. Patient advised to reestablish care. Information will be left in the chart.
-
Defer pulmonary vasodilation to cardiology as she follows up with Dr. Bundy for this.
-
At this point no additional recommendation from the pulmonary perspective. I strongly advised patient to quit smoking definitely and quit using alcohol.
Strongly advised to make a follow-up appointment with Dr. Marie after discharge. Needs repeat CT chest and updated pulmonary function testing to evaluate his interstitial lung disease and rule out lung nodules.
Sign off. Please call with questions.

Diagnostic Data
CXR 05/16/23- Relatively stable examination, given the slightly diminished degree of inspiration. Generalized prominence of bronchovascular markings; this could suggest mild vascular congestion, possible chronic interstitial fibrotic changes.
No focal consolidation.
LDCT 04/08/23- Widespread bilateral prominent interstitial markings most likely chronic with some superimposed mild bibasilar subsegmental atelectasis. Mild cardiomegaly, coronary artery calcifications and sternal wires. No pulmonary nodule
Spirometry 07/08/13- FEV1 1.8L 58%, FVC 2.27L 56%, ratio 79. Post FEV1 1.79L 58%. TLC 3.73L 62%, DLCO 70%
ECHO 04/04/23- �1.� Left ventricle: Normal size and function with a visually estimated ejection�fraction of 55 to 60%.� No regional wall motion abnormalities.� Stage II�diastolic dysfunction.
�2.� Right ventricle: Normal
�3.� Atria: Normal
�4.� Mitral valve: Trace mitral regurgitation
�5.� Aortic valve: No aortic stenosis or aortic insufficiency
�6.� Tricuspid valve: Mild tricuspid regurgitation with estimated pulmonary�artery systolic pressures of 35 mmHg
�7.� When compared to most recent echocardiogram from 01/01/2023 there has been no�significant change
-
Right heart catheterization 09/29/2023:
HEMODYNAMICS (mmHg) :
RA (m) : 16
RV (s/d) : 68/9, 13
PA (s/d,m) : 70/29, 43
PCWP (m) : 15
AO (s/d, m) : 148/70, 99
LV (s/d) : 149/11
LVEDP (m) : 18
1. Patent HALL-LAD and sequential SVG-OM 2-PDA. Severe multivessel [place] coronary artery disease
2. Elevated pulmonary vascular resistance to 6.8 Wood units
3. Compensated left ventricular filling pressures with a pulmonary capillary wedge pressure measuring 15 mmHg and LVEDP measuring 18 mmHg
-
[facility] 05/16/23- Hemodynamics (mmHg):
RA (m) : 18
RV (s/d,m) : 83/11, 22
PA (s/d, m) : 84/27/46
PCWP (m) : 24
Cardiac Output : 2.45 L/min and Cardiac Index : 1.37 L/min/m-2
Systemic Vascular Resistance: 33.9 Wood units = 2710 dynes*sec*cm-5
Pulmonary Vascular Resistance: 9.0 Wood units = 718 dynes*sec*cm-5
CONCLUSION: Elevated right left ventricular filling pressures with pulmonary hypertension.� Findings are consistent with WHO Group II and Group V
Subjective Data
-
Date of Service:
Date of Service: July 02, 2024
Chief Complaint: Pulmonary Follow Up (Hypoxemic respiratory failure.)
Subjective:
Patient offers no new complaints
Remains on low rate supplemental oxygen
Denies significant phlegm production
Denies wheezing
Review of Systems
Cardiopulmonary: Dyspnea (Improved since admission)
GI: Abdominal Pain (n) and Nausea (n)
Objective Data
Data Reviewed
Vital Signs / I&O / Oxygen:
Vital Signs
Temp Pulse Resp BP Pulse Ox
98.4 F 66 18 121/67 92
07/02/24 11:55 07/02/24 12:12 07/02/24 12:12 07/02/24 11:55 07/02/24 12:12
Intake and Output
07/01/24 07/02/24 07/03/24
06:59 06:59 06:59
Intake Total 1620 / 1620 480 / 480
Output Total 1575 / 1575
Balance 1620 / 1620 -1095 / -1095
SaO2 92
Nasal Cannula flow liters per 4
minute
Physical Exam
General: Comfortable
HEENT: Normocephalic
Cardiovascular: S1-S2
Respiratory: Crackles
GI: Non Distended
Neurology: Awake, AO x 3 and No Motor Deficits
Skin: Warm
Labs/Micro/Reports
Lab Data
07/02/24 07:10
07/02/24 07:10
[2024-07-02 15:55] VITALS: BP 119/52
--- NOTE | 2024-07-02 16:29 | PTCARENOTE ---
Pt AAO x3, OSUNA well, OOB in room/to BR; occ uses cane; no c/o weakness/dizziness. VSS. On nc 4 lpm- pulse ox 96%; pt with (+) slight TRAORE; occ cough- clear mucus. Abd large, soft, lauren PO well. Voiding large amts clear yellow urine in urinal.
Resting in bed at present, no c/o. Will continue to monitor.
[2024-07-02] MEDS: PERCOCET 5/325 1 TABLET PO ×2 (16:38→21:14)
--- NOTE | 2024-07-02 16:39 | W.PN.CARDCBS ---
Addendum entered and electronically signed by Raman Cox MD 07/02/24 18:00:
68-year-old man with WHO group 1 pulmonary hypertension (possible group 3 also), admitted with acute on chronic respiratory failure
PMH: CABG, interstitial lung disease, COPD, right CEA, diabetes, hypertension, syncope, hypercholesterolemia, tobacco abuse, spinal stenosis and laminectomy,, Linq monitor
Current meds: Insulin, aspirin 81 mg a day, pantoprazole, Zetia, Neurontin, macitentan, metoprolol ER 25 a day, rosuvastatin 20 mg a day, tadalafil, spironolactone 12.5 daily, furosemide 40 IV twice daily, subcu heparin, potassium 40 meqs 3 times
daily, albuterol/ipratropium
119/52, pulse 72, sats 96%, respiratory rate 16, weight is 70.9 kg, largely unchanged, intake and output -1.1 L, chest x-ray with elevated right hemidiaphragm, Linq monitor, cardiomegaly, no distress, head neck exam unremarkable, rhonchi in lungs
but no wet rales, regular rate and rhythm, no obvious murmurs, JVD okay, not much edema
Echo yesterday: EF 50-55%, stage II diastolic dysfunction, trace mitral regurgitation, no aortic regurgitation, pulmonary artery systolic pressure 35-40 mmHg
Hemoglobin 13.3 white count 7.1, BUN and creatinine 40 and 1.7 with a potassium of 3.7, creatinine had been 1.2 on admission
Impression: See below
Plan:
Regarding his multifactorial respiratory failure, he seems improved.
Macitentan and tadalafil have been restarted.
He has acute kidney injury and at present does not have evidence of heart failure. Creatinine is 1.7. Will [address] spironolactone, furosemide, and potassium on hold.
Follow BMP and reinstitute diuretics based on renal function.
Manage COPD per hospitalist.
Original Note:
Today's Communication / Plan
-
Follow renal function in AM and consider transitioning to PO lasix
Wean O2 as able
Continue Pulm HTN medications.
Impression / Plan
-
PCP: Ezekiel Avila
Cardiology: Dr. EUNICE Cox
Impression:
Acute on chronic hypoxic respiratory insufficiency
Recent admission for acute on chronic hypoxic respiratory failure and probable AE ILD vs AE asthma 06/14/2024 until 06/16/2024
Acute on chronic HFpEF
Pulmonary HTN
likely hereditary PHTN so WHO group 1 given likely hereditary but also likely some WHO group 3 due to underlying lung disease including JERI, ILD and COPD
chronically on Adcirca (tadalafil) 20 mg daily and Opsumit 10 mg daily
ETOH use disorder
CAD
s/p CABG in 07/2013 with HALL to LAD, SVG sequential to OM, PDA
Sternal instability with sternal pain, s/p sternal rewire and muscle flap 06/16/14
Right carotid stenosis
s/p right CEA 03/13/2023
Type 2 DM
COPD
HTN
Syncope 04/2023
Dyslipidemia
Tobacco abuse
GERD
Lumbar spinal Stenosis s/p laminectomy L5-S1
COPD
Bilateral Carpal Tunnel Surgery
Bilateral Eye Surgeries
LINQ monitor May 2023
Hypokalemia
RHC 05/16/2023: Hemodynamics (mmHg): RA (m) : 1; RV (s/d,m) : 83/11, 22; PA (s/d, m) : 84/27/46; PCWP (m) : 24; Cardiac Output : 2.45 L/min and Cardiac Index : 1.37 L/min/m-2
R/LHC 09/29/23: Patent HALL-LAD and sequential [id number]-[id number]-PDA, elevated PVR at 6.8 Wood units, PCWP 15 mmHg and LVEDP 18 mmHg
Echo 01/06/2023: EF 60%, stage II DD w/ increased filling pressures. Mild TR w/ PAP 39 mmHg
Echo 04/04/2023:�EF 55 to 60% with normal wall motion.� Stage II DD, mild MR with PAP 35 mmHg
Echo 05/19/2023: EF 55-60%, normal RV, normal atria, mild TR, pulmonary artery pressure 37-42 mmHg, similar to April 2023
Echo 07/01/2024: EF 50-55%, trace MR, mild TR, estimated PAP 35-40 mmHg, lipomatous intra-atrial septum
Plan:
-Presented from cardiology office with acute heart failure.
-Diuresing with IV lasix 40mg BID. Taking lasix PO 40mg daily prior to admission.
-Weight down 2lbs this admission, flat at 156 lbs 07/02. Negative 1L on I&Os.
-Creat up to 1.7, was 1.4 on 06/30.
-Volume status appears improved, but still requiring 4L NC. Would reassess renal function and consider transitioning to PO lasix in AM.
-Echo 07/01 noted preserved EF with only trace MR as noted above.
-Continue on Adcirca 20mg daily and Opsumit 10mg daily.
-Continue Toprol, spironolactone.
-K and mag improving w/ supplementation.
HPI: Patient came to ER today after he was noted to be hypoxic in the cardiology office and is now likely to be admitted with acute HFpEF in the setting of PHTN. Patient was just admitted to 06/14/2024 until 06/16/2024 with probable AE ILD vs
AE asthma. Patient reports that during that admission he received a dose of IV Lasix, but patient was not seen by cardiology. He was discharged home on prednisone. Patient was scheduled to be seen in the office today after this admission and also
to follow-up on a phone call his mother made to our office yesterday saying that he was more SOB and coughing and also reported that on his own he had stopped taking his Opsumit. Patient has known pulmonary hypertension and was started on Adcirca
20 mg daily 03/2024. A bit later he received approval for Opsumit and this was started at 10 mg daily 05/2024. Patient then called our office to report feeling lightheaded and dizzy and was reportedly hypoxic at 85% on RA and so our office advised
him to go to the ER on 06/14/2024. Then as noted above the patient was admitted and received a dose of IV Lasix along with steroids for possible acute exacerbation of either ILD or asthma, but was not seen by cardiology. He then called our office
yesterday report he was no longer taking the Opsumit and so we attempted to see him in the office today for a visit but he had a pulse ox of 77% on RA and was placed on 4 L oxygen via NC in our office and transported to ER. Patient is now on 6 L
NC and reports SOB has improved. Patient denies weight gain and says that he barely eats anything at home. Patient reports good urine output after daily dose of Lasix 40 mg daily. Patient complains of left ankle edema and denies bloating.
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
Subjective
Date of Service: July 02, 2024
Breathing improving. Feels no SOB, but still on 4L NC
Objective
Labs:
07/02/24 07:10
07/02/24 07:10
Labs
Hgb 13.3 g/dL (13.0-18.0) 07/02/24 07:10
Hct 39.5 % (39.0-52.0) 07/02/24 07:10
Plt Count 206 10^3/uL (130-400) 07/02/24 07:10
PT Cancelled 06/29/24 13:19
INR Cancelled 06/29/24 13:19
Sodium 136 mmol/L (135-145) 07/02/24 07:10
Potassium 3.7 mmol/L (3.5-5.1) 07/02/24 07:10
BUN 40 mg/dl (9-20) H 07/02/24 07:10
Creatinine 1.7 mg/dL (0.7-1.3) H 07/02/24 07:10
Glucose 147 mg/dl (70-99) H 07/02/24 07:10
Vital Signs and I&O:
Vital Signs
Temp Pulse Resp BP Pulse Ox
98.3 F 72 16 119/52 96
07/02/24 15:55 07/02/24 16:32 07/02/24 15:55 07/02/24 16:32 07/02/24 16:29
Vital Signs
Temp Pulse Resp BP Pulse Ox
98.3 F 72 16 119/52 96
07/02/24 15:55 07/02/24 16:32 07/02/24 15:55 07/02/24 16:32 07/02/24 16:29
Intake & Output
06/30/24 07/01/24 07/02/24 07/03/24
06:59 06:59 06:59 06:59
Intake Total 480 / 480 1620 / 1620 480 / 480
Output Total 1225 / 1225 1575 / 1575
Balance -745 / -745 1620 / 1620 -1095 / -1095
Physical Exam
Physical Exam
GEN: NAD. AAO x 3.�
HEENT:�MMM, EOMI
LUNGS: Wearing oxygen at 4 L NC. CTA b/l, no wheezes
CV: Reg, no murmur/rubs
EXT: No clubbing, cyanosis, or edema
NEURO: No focal neurologic deficits
[2024-07-02 16:49] LABS: Glucose - Point of Care 224 mg/dl (70-99)
[2024-07-02] MEDS: NOVOLOG FLEXPEN-LOW RESISTANCE 2 UNITS SC (17:57)
[2024-07-02] MEDS: TOPROL XL 25 MG PO (17:57)
[2024-07-02] MEDS: ROBITUSSIN 100 MG PO (21:14)
[2024-07-02 21:51] LABS: Glucose - Point of Care 285 mg/dl (70-99)
[2024-07-02] MEDS: LANTUS 0.3 UNITS SC (22:23)
[2024-07-02 23:48] VITALS: BP 115/66
[2024-07-03] MEDS: ROBITUSSIN 100 MG PO ×2 (03:09→09:22)
[2024-07-03 06:00] VITALS: BMI 26.0
[2024-07-03 07:14] VITALS: BP 106/56
[2024-07-03 07:28] LABS: Blood Urea Nitrogen 49 mg/dl (9-20); Calcium 9.6 mg/dl (8.4-10.2); Carbon Dioxide 33 mmol/L (22-30); Chloride 95 mmol/L (98-107); Estimated Creatinine Clearance 37 ml/min; Glucose 146 mg/dl (70-99); Potassium 3.8 mmol/L (3.5-5.1); Sodium 136 mmol/L (135-145); eGFR 43.91
[2024-07-03 07:30] LABS: Glucose - Point of Care 146 mg/dl (70-99)
[2024-07-03] MEDS: NOVOLOG FLEXPEN-LOW RESISTANCE SC (07:34)
[2024-07-03] MEDS: DUONEB 3 ML INH ×4 (08:00→19:55)
[2024-07-03 08:14] VITALS: BP 106/56
--- NOTE | 2024-07-03 08:47 | W.PN.HOSP.TC ---
Today's Communication/Plan
-
Hold diuretics
Assessment / Plan
Assessment / Plan
Physical exam:
General: Acute on chronically ill
HEENT: Normocephalic, Atraumatic and Moist Mucous Membranes
Respiratory: Decreased breath sounds bilateral; Bilateral fine crackles, negative Wheezes or Rhonchi
Cardiac: Regular Rhythm and S1/S2
GI: Soft, Nontender and Nondistended
Musculoskeletal: Bilateral lower extremity edema. No Clubbing, No Cyanosis
Neuro: Awake, Alert and Oriented
Psych: Calm
A/P:
#Acute on Chronic diastolic CHF
77% on room air, 94% 3 L nasal cannula upon admission. He uses bedtime oxygen that has been using all day long.
I/O, daily weight
-Cardiology consult appreciated
BNP 1120
-Patient on spironolactone 12.5 mg daily, Lasix 40 mg daily and holding now
-Continue spironolactone 12.5 mg daily
-Will hold Lasix for now. Will follow-up cardiology recommendations on what dose to restart
CXR: Mild to moderate CHF/progressed
2D echo 05/19/2023: EF 55 to 60% normal LVS LVSF, pulm arterial pressure 37-42 mmHg, mild TR
EKG: NSR 79 bpm, QTc 481 MS
#Acute kidney injury
Most likely overdiuresis
Furosemide on hold as well as potassium supplement and spironolactone for now
#Pulmonary HTN
-Continue tadalafil 40 mg daily, Opsumit 10 mg daily on hold
-Pulmonary consult appreciated
# Hypokalemia
Replete and trend
Back to his scheduled home doses of potassium
Recheck in afternoon
#COPD�no acute exacerbation
#ex-smoker
50-year smoker 1 pack a day quit 4 weeks ago beginning in June 2024
#HTN�benign
-Stable
--Continue amlodipine 5 mg daily, Toprol XL 25 mg every afternoon
#CKD 3B
Creat with mild bump
Follow BMP
#HTN�benign
-Continue amlodipine 5 mg daily, Toprol XL 25 mg every afternoon
#HLD
- Continue Crestor 20 mg daily, Zetia 10 mg daily
#DM 2
-Accu-Cheks with SSI, check HgbA1c
-Basaglar 60 units SQ at bedtime(will cont Basaglar 30 units every evening for now)
#CAD
#CABG x 3 vessel 2013
Loop recorder
-Continue aspirin 81 mg daily, Zetia, Crestor
#Chronic back pain on chronic oral opiates as needed
#L5-S1 laminectomy 03/21/2022
#Back surgery with discectomy 1997
Patient due for elodia replacement lumbar and new elodia insertion thoracic July [address] Johnson
-Continue gabapentin 300 mg 3 times daily
-Continue oxycodone/acetaminophen-reports he takes more than bedtime so increased frequency for now.
#Carotid stenosis
#CEA 03/21/2023
Continue Crestor 20 mg daily, Zetia 10 mg daily
#PVD
#Anemia
-Hgb stable
Arthritis
DVT prophylaxis
Subcu heparin
Full code
Anticipated Discharge: Within 24 hours
Subjective/Interval History
-
Date of Service: July 03, 2024
Patient feels better overall. Still using oxygen at daytime. Afebrile
Objective Data
-
Labs:
Laboratory Results
07/03/24
06:24
Sodium 136
Potassium 3.8
Chloride 95 L
Carbon Dioxide 33 H
BUN 49 H
Creatinine 1.7 H
Glucose 146 H
Calcium 9.6
Vital Signs:
Vital Signs
Temp Pulse Resp BP Pulse Ox
97.6 F 50 18 106/56 96
07/03/24 07:14 07/03/24 08:03 07/03/24 08:03 07/03/24 07:14 07/03/24 08:03
I&O
07/02/24 07/03/24 07/04/24
06:59 06:59 06:59
Intake Total 480 / 480 1080 / 1080
Output Total 1575 / 1575 1750 / 1750
Balance -1095 / -1095 -670 / -670
[2024-07-03] MEDS: NON-FORMULARY ITEM 40 MG PO (08:54)
[2024-07-03] MEDS: NON-FORMULARY ITEM 10 MG PO (08:54)
[2024-07-03] MEDS: CRESTOR 20 MG PO (08:56)
[2024-07-03] MEDS: ASPIR LOW (ENTERIC COATED) 81 MG PO (08:56)
[2024-07-03] MEDS: PROTONIX 40 MG PO (08:56)
[2024-07-03] MEDS: NEURONTIN 300 MG PO ×3 (08:56→21:26)
[2024-07-03] MEDS: ZETIA 10 MG PO (08:56)
[2024-07-03] MEDS: PERCOCET 5/325 1 TABLET PO ×2 (09:00→21:26)
[2024-07-03 09:31] LABS: Glucose - Point of Care 350 mg/dl (70-99)
[2024-07-03] MEDS: NOVOLOG FLEXPEN-LOW RESISTANCE 5 UNITS SC (09:43)
--- NOTE | 2024-07-03 10:27 | W.PN.CARDCBS ---
Today's Communication / Plan
-
Hold lasix, spironolactone 07/03
Resume PO lasix at lower dose 40mg MWF
Continue pulm HTN medications
Follow up BMP in 1 week
Follow up appt has been arranged.
Impression / Plan
-
PCP: Ezekiel Avila
Cardiology: Dr. Farheen Bundy
Impression:
Acute on chronic hypoxic respiratory insufficiency
Recent admission for acute on chronic hypoxic respiratory failure and probable AE ILD vs AE asthma 06/14/2024 until 06/16/2024
Acute on chronic HFpEF
Pulmonary HTN
likely hereditary PHTN so WHO group 1 given likely hereditary but also likely some WHO group 3 due to underlying lung disease including JERI, ILD and COPD
chronically on Adcirca (tadalafil) 20 mg daily and Opsumit 10 mg daily
ETOH use disorder
CAD
s/p CABG in 07/2013 with HALL to LAD, SVG sequential to OM, PDA
Sternal instability with sternal pain, s/p sternal rewire and muscle flap 06/16/14
Right carotid stenosis
s/p right CEA 03/13/2023
Type 2 DM
COPD
HTN
Syncope 04/2023
Dyslipidemia
Tobacco abuse
GERD
Lumbar spinal Stenosis s/p laminectomy L5-S1
COPD
Bilateral Carpal Tunnel Surgery
Bilateral Eye Surgeries
LINQ monitor May 2023
Hypokalemia
RHC 05/16/2023: Hemodynamics (mmHg): RA (m) : 1; RV (s/d,m) : 83/11, 22; PA (s/d, m) : 84/27/46; PCWP (m) : 24; Cardiac Output : 2.45 L/min and Cardiac Index : 1.37 L/min/m-2
R/LHC 09/29/23: Patent HALL-LAD and sequential CPP-JS-5-PDA, elevated PVR at 6.8 Wood units, PCWP 15 mmHg and LVEDP 18 mmHg
Echo 01/06/2023: EF 60%, stage II DD w/ increased filling pressures. Mild TR w/ PAP 39 mmHg
Echo 04/04/2023:�EF 55 to 60% with normal wall motion.� Stage II DD, mild MR with PAP 35 mmHg
Echo 05/19/2023: EF 55-60%, normal RV, normal atria, mild TR, pulmonary artery pressure 37-42 mmHg, similar to April 2023
Echo 07/01/2024: EF 50-55%, trace MR, mild TR, estimated PAP 35-40 mmHg, lipomatous intra-atrial septum
Plan:
-Presented from cardiology office with acute heart failure.
-Diuresed with IV lasix 40mg BID this admission. Creat bumped to 1.7 and lasix on hold.
-Weight has been flat at 156 lbs. Would resume PO lasix at 40mg MWF.
-Follow up BMP in 1 week.
-Echo 07/01 noted preserved EF with only trace MR as noted above.
-Continue on Adcirca 20mg daily and Opsumit 10mg daily.
-Continue Toprol. Spironolactone on hold w/ JULIETH. Would consider resuming as OP at follow up if renal function improves.
-He is down to 2L NC. d/w RN who stated when on RA his pulse ox dropped into the 70s.
-Home oxygen eval prior to discharge.
-Follow up arranged.
HPI: Patient came to ER today after he was noted to be hypoxic in the cardiology office and is now likely to be admitted with acute HFpEF in the setting of PHTN. Patient was just admitted to 06/14/2024 until 06/16/2024 with probable AE ILD vs
AE asthma. Patient reports that during that admission he received a dose of IV Lasix, but patient was not seen by cardiology. He was discharged home on prednisone. Patient was scheduled to be seen in the office today after this admission and also
to follow-up on a phone call his mother made to our office yesterday saying that he was more SOB and coughing and also reported that on his own he had stopped taking his Opsumit. Patient has known pulmonary hypertension and was started on Adcirca
20 mg daily 03/2024. A bit later he received approval for Opsumit and this was started at 10 mg daily 05/2024. Patient then called our office to report feeling lightheaded and dizzy and was reportedly hypoxic at 85% on RA and so our office advised
him to go to the ER on 06/14/2024. Then as noted above the patient was admitted and received a dose of IV Lasix along with steroids for possible acute exacerbation of either ILD or asthma, but was not seen by cardiology. He then called our office
yesterday report he was no longer taking the Opsumit and so we attempted to see him in the office today for a visit but he had a pulse ox of 77% on RA and was placed on 4 L oxygen via NC in our office and transported to ER. Patient is now on 6 L
NC and reports SOB has improved. Patient denies weight gain and says that he barely eats anything at home. Patient reports good urine output after daily dose of Lasix 40 mg daily. Patient complains of left ankle edema and denies bloating.
Progress Note - Rfp Writer
Subjective
Date of Service: July 03, 2024
Feeling well. Down to 2L NC. No SOB.
Objective
Labs:
07/02/24 07:10
07/03/24 06:24
Labs
Hgb 13.3 g/dL (13.0-18.0) 07/02/24 07:10
Hct 39.5 % (39.0-52.0) 07/02/24 07:10
Plt Count 206 10^3/uL (130-400) 07/02/24 07:10
PT Cancelled 06/29/24 13:19
INR Cancelled 06/29/24 13:19
Sodium 136 mmol/L (135-145) 07/03/24 06:24
Potassium 3.8 mmol/L (3.5-5.1) 07/03/24 06:24
BUN 49 mg/dl (9-20) H 07/03/24 06:24
Creatinine 1.7 mg/dL (0.7-1.3) H 07/03/24 06:24
Glucose 146 mg/dl (70-99) H 07/03/24 06:24
Vital Signs and I&O:
Vital Signs
Temp Pulse Resp BP Pulse Ox
97.6 F 50 18 106/56 96
07/03/24 07:14 07/03/24 08:03 07/03/24 08:03 07/03/24 07:14 07/03/24 08:03
Vital Signs
Temp Pulse Resp BP Pulse Ox
97.6 F 50 18 106/56 96
07/03/24 07:14 07/03/24 08:03 07/03/24 08:03 07/03/24 07:14 07/03/24 08:03
Intake & Output
07/01/24 07/02/24 07/03/24 07/04/24
06:59 06:59 06:59 06:59
Intake Total 1620 / 1620 480 / 480 1080 / 1080
Output Total 1575 / 1575 1750 / 1750
Balance 1620 / 1620 -1095 / -1095 -670 / -670
Physical Exam
Physical Exam
GEN: NAD. AAO x 3.�
HEENT:�MMM, EOMI
LUNGS: Wearing oxygen at 2 L NC. CTA b/l, no wheezes
CV: Reg, no murmur/rubs
EXT: No clubbing, cyanosis, or edema
NEURO: No focal neurologic deficits
[2024-07-03 11:20] VITALS: BP 101/65
[2024-07-03 11:49] LABS: Glucose - Point of Care 245 mg/dl (70-99)
[2024-07-03] MEDS: NOVOLOG FLEXPEN-LOW RESISTANCE 2 UNITS SC (12:22)
[2024-07-03] MEDS: MUCINEX 600 MG PO ×2 (14:00→19:54)
--- NOTE | 2024-07-03 14:55 | W.PN.CARDCBS ---
Today's Communication / Plan
-
On discharge start Lasix 40 mg Friday and potassium 40 mill equivalents daily.
On discharge he will need BMP and proBNP in 1 week
Continue dual therapy for pulmonary arterial hypertension. Compliance discussed with patient.
Follow-up arranged.
Impression / Plan
-
PCP: Ezekiel Avila
Cardiology: Dr. Farheen Bundy
Impression:
Acute on chronic hypoxic respiratory insufficiency
Recent admission for acute on chronic hypoxic respiratory failure and probable AE ILD vs AE asthma 06/14/2024 until 06/16/2024
Acute on chronic HFpEF
Pulmonary HTN
likely hereditary PHTN so WHO group 1 given likely hereditary but also likely some WHO group 3 due to underlying lung disease including JERI, ILD and COPD
chronically on Adcirca (tadalafil) 20 mg daily and Opsumit 10 mg daily
ETOH use disorder
CAD
s/p CABG in 07/2013 with HALL to LAD, SVG sequential to OM, PDA
Sternal instability with sternal pain, s/p sternal rewire and muscle flap 06/16/14
Right carotid stenosis
s/p right CEA 03/13/2023
Type 2 DM
COPD
HTN
Syncope 04/2023
Dyslipidemia
Tobacco abuse
GERD
Lumbar spinal Stenosis s/p laminectomy L5-S1
COPD
Bilateral Carpal Tunnel Surgery
Bilateral Eye Surgeries
LINQ monitor May 2023
Hypokalemia
RHC 05/16/2023: Hemodynamics (mmHg): RA (m) : 1; RV (s/d,m) : 83/11, 22; PA (s/d, m) : 84/27/46; PCWP (m) : 24; Cardiac Output : 2.45 L/min and Cardiac Index : 1.37 L/min/m-2
R/LHC 09/29/23: Patent HALL-LAD and sequential DPN-DS-5-PDA, elevated PVR at 6.8 Wood units, PCWP 15 mmHg and LVEDP 18 mmHg
Echo 01/06/2023: EF 60%, stage II DD w/ increased filling pressures. Mild TR w/ PAP 39 mmHg
Echo 04/04/2023:�EF 55 to 60% with normal wall motion.� Stage II DD, mild MR with PAP 35 mmHg
Echo 05/19/2023: EF 55-60%, normal RV, normal atria, mild TR, pulmonary artery pressure 37-42 mmHg, similar to April 2023
Echo 07/01/2024: EF 50-55%, trace MR, mild TR, estimated PAP 35-40 mmHg, lipomatous intra-atrial septum
Plan:
Limited understanding of underlying disease process. Pulmonary arterial hypertension like heritable who presented to the office with hypoxemia and heart failure symptoms. Over diuresed during hospital stay. Exacerbation of pulmonary arterial
hypertension in the setting of patient not taking medication. He was off of Opsumit. We discussed the importance of not skipping or discontinuing medication. During hospital stay creatinine increased and Lasix currently on hold. Volume status
remains stable. He does require oxygen currently and likely will as an outpatient although he is a bit upset about this. We discussed the importance.
-Continue medications for pulmonary arterial hypertension. He is now back on Opsumit and Adcirca.
-On discharge given diet will be different start Lasix 40 mg Friday.
-He has a tendency towards hypokalemia likely start potassium 40 mg daily with repeat BMP and proBNP in 1 to 2 weeks.
-Echo 07/01 noted preserved EF with only trace MR as noted above. His right heart cath pulmonary hypertension numbers have been much higher than what has been described on echocardiogram.
-Continue Toprol. Spironolactone on hold w/ JULIETH. Would consider resuming as OP at follow up if renal function improves.
-Home oxygen eval prior to discharge.
-Follow up arranged.
He asked me again today about wanting to undergo back surgery and I explained to him that with pulmonary arterial hypertension he is not a candidate for surgical procedure.
We will sign off. Please reconsult us if new issues develop.
HPI: Patient came to ER today after he was noted to be hypoxic in the cardiology office and is now likely to be admitted with acute HFpEF in the setting of PHTN. Patient was just admitted to 06/14/2024 until 06/16/2024 with probable AE ILD vs
AE asthma. Patient reports that during that admission he received a dose of IV Lasix, but patient was not seen by cardiology. He was discharged home on prednisone. Patient was scheduled to be seen in the office today after this admission and also
to follow-up on a phone call his mother made to our office yesterday saying that he was more SOB and coughing and also reported that on his own he had stopped taking his Opsumit. Patient has known pulmonary hypertension and was started on Adcirca
20 mg daily 03/2024. A bit later he received approval for Opsumit and this was started at 10 mg daily 05/2024. Patient then called our office to report feeling lightheaded and dizzy and was reportedly hypoxic at 85% on RA and so our office advised
him to go to the ER on 06/14/2024. Then as noted above the patient was admitted and received a dose of IV Lasix along with steroids for possible acute exacerbation of either ILD or asthma, but was not seen by cardiology. He then called our office
yesterday report he was no longer taking the Opsumit and so we attempted to see him in the office today for a visit but he had a pulse ox of 77% on RA and was placed on 4 L oxygen via NC in our office and transported to ER. Patient is now on 6 L
NC and reports SOB has improved. Patient denies weight gain and says that he barely eats anything at home. Patient reports good urine output after daily dose of Lasix 40 mg daily. Patient complains of left ankle edema and denies bloating.
Progress Note - Automotive Brake Specialist
Subjective
Date of Service: July 03, 2024
Denies chest pain and palpitations.
Objective
Labs:
07/02/24 07:10
07/03/24 06:24
Labs
Hgb 13.3 g/dL (13.0-18.0) 07/02/24 07:10
Hct 39.5 % (39.0-52.0) 07/02/24 07:10
Plt Count 206 10^3/uL (130-400) 07/02/24 07:10
PT Cancelled 06/29/24 13:19
INR Cancelled 06/29/24 13:19
Sodium 136 mmol/L (135-145) 07/03/24 06:24
Potassium 3.8 mmol/L (3.5-5.1) 07/03/24 06:24
BUN 49 mg/dl (9-20) H 07/03/24 06:24
Creatinine 1.7 mg/dL (0.7-1.3) H 07/03/24 06:24
Glucose 146 mg/dl (70-99) H 07/03/24 06:24
Vital Signs and I&O:
Vital Signs
Temp Pulse Resp BP Pulse Ox
98.1 F 54 17 101/65 93
07/03/24 11:20 07/03/24 11:51 07/03/24 11:51 07/03/24 11:20 07/03/24 11:51
Vital Signs
Temp Pulse Resp BP Pulse Ox
98.1 F 54 17 101/65 93
07/03/24 11:20 07/03/24 11:51 07/03/24 11:51 07/03/24 11:20 07/03/24 11:51
Intake & Output
07/01/24 07/02/24 07/03/24 07/04/24
06:59 06:59 06:59 06:59
Intake Total 1620 / 1620 480 / 480 1080 / 1080
Output Total 1575 / 1575 1750 / 1750
Balance 1620 / 1620 -1095 / -1095 -670 / -670
Physical Exam
Physical Exam
General: Well developed, well nourished in NAD.
Heart: Distant heart sounds regular rate and rhythm increased P2
Lungs: Bilateral crackles dry
Extremities: No clubbing, cyanosis or edema bilaterally.
Neuro: Grossly nonfocal, awake, alert and oriented x3.
[2024-07-03 15:44] VITALS: BP 113/64
[2024-07-03 16:41] LABS: Glucose - Point of Care 306 mg/dl (70-99)
[2024-07-03] MEDS: NOVOLOG FLEXPEN-LOW RESISTANCE 4 UNITS SC (16:47)
[2024-07-03] MEDS: TOPROL XL 25 MG PO (17:49)
[2024-07-03 21:33] LABS: Glucose - Point of Care 228 mg/dl (70-99)
[2024-07-03] MEDS: LANTUS 0.3 UNITS SC (21:33)
[2024-07-04 00:08] VITALS: BP 94/40
[2024-07-04 04:00] VITALS: BP 125/51
[2024-07-04] MEDS: PERCOCET 5/325 1 TABLET PO (04:12)
[2024-07-04] MEDS: OCEAN, SALINE MIST 1 SPRAYS NASAL (04:13)
[2024-07-04 06:00] VITALS: BMI 26.2
[2024-07-04 07:25] VITALS: BP 139/64
[2024-07-04 07:30] LABS: Glucose - Point of Care 87 mg/dl (70-99)
[2024-07-04] MEDS: NOVOLOG FLEXPEN-LOW RESISTANCE SC (07:33)
[2024-07-04 07:44] LABS: Blood Urea Nitrogen 41 mg/dl (9-20); Calcium 9.7 mg/dl (8.4-10.2); Carbon Dioxide 30 mmol/L (22-30); Chloride 95 mmol/L (98-107); Estimated Creatinine Clearance 45 ml/min; Glucose 98 mg/dl (70-99); Potassium 3.1 mmol/L (3.5-5.1); Sodium 136 mmol/L (135-145); eGFR 55.43
[2024-07-04] MEDS: DUONEB 3 ML INH ×2 (07:46→11:25)
[2024-07-04] MEDS: ZETIA 10 MG PO (08:39)
[2024-07-04] MEDS: ASPIR LOW (ENTERIC COATED) 81 MG PO (08:39)
[2024-07-04] MEDS: NEURONTIN 300 MG PO (08:39)
[2024-07-04] MEDS: PROTONIX 40 MG PO (08:39)
[2024-07-04] MEDS: MUCINEX 600 MG PO (08:39)
[2024-07-04] MEDS: CRESTOR 20 MG PO (08:39)
[2024-07-04] MEDS: NON-FORMULARY ITEM 10 MG PO (08:40)
[2024-07-04] MEDS: NON-FORMULARY ITEM 40 MG PO (08:40)
--- NOTE | 2024-07-04 10:08 | W.PN.HOSP.TC ---
Today's Communication/Plan
-
Discharge planning today
Assessment / Plan
Assessment / Plan
Physical exam:
General: Chronically ill
HEENT: Normocephalic, Atraumatic and Moist Mucous Membranes
Respiratory: Decreased breath sounds bilateral; Bilateral fine crackles, negative Wheezes or Rhonchi
Cardiac: Regular Rhythm and S1/S2
GI: Soft, Nontender and Nondistended
Musculoskeletal: Bilateral lower extremity edema decreased. No Clubbing, No Cyanosis
Neuro: Awake, Alert and Oriented
Psych: Calm
A/P:
#Acute on Chronic diastolic CHF
77% on room air, 94% 3 L nasal cannula upon admission. He uses bedtime oxygen that has been using all day long.
I/O, daily weight
-Cardiology consult appreciated
BNP 1120
-Patient on spironolactone 12.5 mg daily, Lasix 40 mg daily and holding now
-Continue spironolactone 12.5 mg daily
-Will hold Lasix for now. Will follow-up cardiology recommendations on what dose to restart--> will restart Lasix 40 mg Friday and Friday and decrease potassium supplement to once a day. Cardiology cleared her for discharge. Case
work manager to arrange for home oxygen.
CXR: Mild to moderate CHF/progressed
2D echo 05/19/2023: EF 55 to 60% normal LVS LVSF, pulm arterial pressure 37-42 mmHg, mild TR
EKG: NSR 79 bpm, QTc 481 MS
#Acute kidney injury
Most likely overdiuresis
Furosemide on hold as well as potassium supplement and spironolactone for now
#Pulmonary HTN
-Continue tadalafil 40 mg daily, Opsumit 10 mg daily on hold
-Pulmonary consult appreciated
# Hypokalemia
Replete and trend
Back to his scheduled home doses of potassium
Recheck in afternoon
#COPD�no acute exacerbation
#ex-smoker
50-year smoker 1 pack a day quit 4 weeks ago beginning in June 2024
#HTN�benign
-Stable
--Continue amlodipine 5 mg daily, Toprol XL 25 mg every afternoon
#CKD 3B
Creat with mild bump
Follow BMP
#HTN�benign
-Continue amlodipine 5 mg daily, Toprol XL 25 mg every afternoon
#HLD
- Continue Crestor 20 mg daily, Zetia 10 mg daily
#DM 2
-Accu-Cheks with SSI, check HgbA1c
-Basaglar 60 units SQ at bedtime(will cont Basaglar 30 units every evening for now)
#CAD
#CABG x 3 vessel 2013
Loop recorder
-Continue aspirin 81 mg daily, Zetia, Crestor
#Chronic back pain on chronic oral opiates as needed
#L5-S1 laminectomy 03/21/2022
#Back surgery with discectomy 1997
Patient due for elodia replacement lumbar and new elodia insertion thoracic July [address] Johnson
-Continue gabapentin 300 mg 3 times daily
-Continue oxycodone/acetaminophen-reports he takes more than bedtime so increased frequency for now.
#Carotid stenosis
#CEA 03/21/2023
Continue Crestor 20 mg daily, Zetia 10 mg daily
#PVD
#Anemia
-Hgb stable
Arthritis
DVT prophylaxis
Subcu heparin
Full code
Anticipated Discharge: Today
Subjective/Interval History
-
Date of Service: July 04, 2024
Patient feels better today. Less shortness of breath. He does require oxygen and arrangement on its way. Afebrile
Objective Data
-
Labs:
Laboratory Results
07/04/24
05:52
Sodium 136
Potassium 3.1 L
Chloride 95 L
Carbon Dioxide 30
BUN 41 H
Creatinine 1.4 H
Glucose 98
Calcium 9.7
Vital Signs:
Vital Signs
Temp Pulse Resp BP Pulse Ox
97.5 F 60 18 139/64 93
07/04/24 07:25 07/04/24 07:46 07/04/24 07:46 07/04/24 07:25 07/04/24 07:46
I&O
07/03/24 07/04/24 07/05/24
06:59 06:59 06:59
Intake Total 1080 / 1080 240 / 240 120 / 120
Output Total 1750 / 1750
Balance -670 / -670 240 / 240 120 / 120
[2024-07-04 11:41] LABS: Glucose - Point of Care 180 mg/dl (70-99)
[2024-07-04] MEDS: NOVOLOG FLEXPEN-LOW RESISTANCE 1 UNITS SC (12:35)
--- NOTE | 2024-07-04 13:24 | W.DCSUMMARY ---
Discharge Summary
Discharge Data
Date of Admission: 06/29/24
Date of Discharge: 07/04/24
-
Pending Results: No
Hospital Course
Patient is 68-year-old male history of COPD, interstitial lung disease, CAD, CHF, came into the hospital shortness of breath and hypoxic. Cardiology and pulmonary consulted. He was diuresed intravenously. Patient did well rest of the hospital
stay. He participated with PT and OT. He had negative balance and his weight went down to about 71 kilograms. He did have some overdiuresis and JULIETH so diuretics were on hold. After holding diuretics his renal function improved. He is being
placed back on diuretics but frequency and doses have been adjusted due to recent JULIETH. Patient also qualify for oxygen continuously during the day and cyanide case hardener consulted for arrangements. Otherwise, hemodynamically stable and improved
clinically. He will be discharged in stable condition today.
Discharge duration: 35 minutes
Discharge Plan
-
Patient Disposition: Home with Home Care
Discharge Diagnosis/Procedures: Acute on chronic diastolic congestive heart failure. Acute kidney injury. Pulmonary hypertension. Hypokalemia. Chronic kidney disease stage III. Chronic obstructive pulmonary disease history of coronary artery
disease. History of chronic back pain chronic oral opiate dependence.
Diet: Low Cholesterol, 2 Gram Sodium and Restrict fluids to 48 oz
Activity: As tolerated
Blood Work: Please PCP to order CBC, BMP within 1 week
Specialty Instructions: Weigh Daily- Call MD for wt gain/loss 3 lbs overnight/5 lbs in 1 week
Instructions: *DCA Heart Failure Instructions
Referrals:
Jp Marie MD [Active] - in two to three weeks (6 MWT)
Marcus Smith MD [Family Provider] - in less than 1 week
Farheen Bundy MD [Active] - 07/19/24 2:00 pm (You have a follow up visit with Dr. Zhong at the [place] office. Please call with questions. )
Prescriptions:
New
furosemide [Lasix] 40 mg tablet
40 mg PO .Friday Qty: 14 0RF
Continued
aspirin 81 mg Tablet,Delayed Release (Dr/Ec)
81 mg PO DAILY
albuterol sulfate 90 mcg/actuation Hfa Aerosol Inhaler
2 puff INHALATION R Q4HPRN PRN (Reason: SOB, Wheezes)
esomeprazole magnesium 40 mg Capsule,Delayed Release(Dr/Ec)
40 mg PO DAILY
ezetimibe 10 mg Tablet
10 mg PO DAILY
rosuvastatin 20 mg Tablet
20 mg PO DAILY
oxycodone-acetaminophen 5-325 mg Tablet
1 tab PO HSPRN PRN (Reason: severe pains)
gabapentin 300 mg Capsule
300 mg PO TID
metoprolol succinate [Toprol XL] 25 mg Tablet Extended Release 24 Hr
25 mg PO QPM
insulin lispro [Humalog KwikPen Insulin] 100 unit/mL Insulin Pen
1 sliding scale dose SC TID
insulin glargine [Basaglar KwikPen U-100 Insulin] 100 unit/mL (3 mL) Insulin Pen
60 unit SC HS
Opsumit 10 mg Tablet
10 mg PO DAILY
tadalafil (pulm. hypertension) 20 mg Tablet
40 mg PO DAILY
amlodipine [Norvasc] 5 mg Tablet
5 mg PO DAILY
spironolactone 25 mg Tablet
12.5 mg PO DAILY
Changed
potassium chloride 20 mEq Tablet Extended Release
40 meq PO DAILY Qty: 0 0RF
Discontinued
furosemide [Lasix] 40 mg Tablet
40 mg PO DAILY
Discharge Orders:
Discharge Patient (As Directed); Ordered 07/04/24
Ordered By: Gabe Pearson
Discharge Date and Time
Discharge Date/Time: 07/04/24 15:10
Print Language: ITALIAN
--- NOTE | 2024-07-04 14:37 | CM ---
PHILLIP met with Paulino at bedside. Home Care ordered; discussed with Paulino who refuses VN services.
Pt appears to be non-compliant.
Plan: discharge to home with no needs; his mother will provide transport home.
[2024-07-04 14:40] VITALS: BP 143/59
--- NOTE | 2024-07-05 10:59 | W.HF.CON ---
Heart Failure
- LV Function
Left ventricular function study result: LV Ejection fraction >/= 50%
Ejection Fraction Percentage: 50-55
- ARNI
Patient already on ARNI: No
Heart Failure ARNI Not Indicated: LV Ejection Fraction >/= 40%
- ACEI/ARB
Patient already on ACEI/ARB: No
Heart Failure ACEI/ARB Not Indicated: LV Ejection Fraction > 40%
- Beta Jerry
Patient already on Evidence Based Beta Jerry: Yes
- Mineralocorticord Receptor Antagonist
Patient already on MRA: Yes
- SGLT-2 Inhibitor
Patient already on SGLT-2 Inhibitor: No
Heart Failure SGLT-2 Inhibitor Not Indicated: LV Ejection Fraction >40%
- NYHA CHF Classification
NYHA CHF Classification Level: Class III - Symptoms w/ min exertion, interferes w/ nml daily activity (pulmonary HTN, ILD, COPD)
- ACC/AHA Stage
ACC/AHA Stage: Stage C: Symptomatic Heart Failure
== END 2024-07-04 15:10 | disposition home or self-care (01) | DRG 291 ==
LOC: 4 EAST ACU 18:53
PROVIDERS: Clinical Nurse Specialist Family Health; Physician Assistant Medical; Registered Nurse; ADMITTING PHYSICIAN Hospitalist; EMERGENCY PHYSICIAN Emergency Medicine; FAMILY PHYSICIAN Internal Medicine Geriatric Medicine; OTHER PHYSICIAN Internal Medicine Cardiovascular Disease; OTHER PHYSICIAN Internal Medicine Critical Care Medicine
DX: I13.0 Hypertensive heart and chronic kidney disease with heart failure and stage 1 through stage 4 chronic kidney disease, or unspecified chronic kidney disease (principal); I50.33 Acute on chronic diastolic (congestive) heart failure; J96.01 Acute respiratory failure with hypoxia; F11.20 Opioid dependence, uncomplicated; N17.9 Acute kidney failure, unspecified; I25.10 Atherosclerotic heart disease of native coronary artery without angina pectoris; E78.00 Pure hypercholesterolemia, unspecified; N18.32 Chronic kidney disease, stage 3b; D63.1 Anemia in chronic kidney disease; E11.51 Type 2 diabetes mellitus with diabetic peripheral angiopathy without gangrene; G47.33 Obstructive sleep apnea (adult) (pediatric); F17.210 Nicotine dependence, cigarettes, uncomplicated; I27.21 Secondary pulmonary arterial hypertension; G89.29 Other chronic pain; I65.21 Occlusion and stenosis of right carotid artery; E87.6 Hypokalemia; E11.22 Type 2 diabetes mellitus with diabetic chronic kidney disease; K21.9 Gastro-esophageal reflux disease without esophagitis; Z95.828 Presence of other vascular implants and grafts; Z79.4 Long term (current) use of insulin; Z79.82 Long term (current) use of aspirin; Z79.899 Other long term (current) drug therapy; Z82.49 Family history of ischemic heart disease and other diseases of the circulatory system; Z95.1 Presence of aortocoronary bypass graft
CPT/HCPCS: 71046; 80048; 80053; 82962; 83036; 83735; 83880; 84484; 85025; 93005; 93306; 94640; 96374; 97116; 97162; 99285; 99406

== ENCOUNTER → 2024-09-24 12:07 | Outpatient (REF) | payer OTHER, MEDICARE, SELFPAY | LOC: DHSLP 12:07 | PROVIDERS: ATTENDING PHYSICIAN Internal Medicine Critical Care Medicine; FAMILY PHYSICIAN Internal Medicine Geriatric Medicine | DX: G47.30 Sleep apnea, unspecified (principal); R06.83 Snoring | CPT/HCPCS: 95800 ==

== ENCOUNTER → 2024-10-06 12:26 | Outpatient (REF) | payer MEDICARE, SELFPAY | LOC: RAD 12:26 | PROVIDERS: ATTENDING PHYSICIAN Internal Medicine Critical Care Medicine; FAMILY PHYSICIAN Internal Medicine Geriatric Medicine | DX: Z87.891 Personal history of nicotine dependence (principal) | CPT/HCPCS: 71271 ==

== ENCOUNTER → 2024-10-18 15:41 | Outpatient (REF) | payer MEDICARE, SELFPAY ==
[2024-07-12 11:35] LABS: Hematocrit 40.7 % (39.0-52.0); Hemoglobin 13.3 g/dL (13.0-18.0); Mean Corp Hgb Conc. 32.7 g/dL (33.0-37.0); Mean Corpuscular Hgb 28.6 pg (27.0-31.0); Mean Corpuscular Volume 87.5 fL (80.0-94.0); Mean Platelet Volume 11.4 fL (7.4-10.4); Platelet Count 152 10^3/uL (130-400); Red Blood Cell Count 4.65 10^6/uL (4.70-6.10); Red Cell Dist. Width 13.2 % (11.5-14.5)
[2024-07-12 13:09] VITALS: BMI 29.0
[2024-07-12 13:13] LABS: ALT (SGPT) 20 U/L (0-50); AST (SGOT) 18 U/L (17-59); Albumin 4.1 g/dl (3.5-5.0); Alkaline Phosphatase 83 U/L (38-126); Blood Urea Nitrogen 23 mg/dl (9-20); Calcium 9.7 mg/dl (8.4-10.2); Carbon Dioxide 25 mmol/L (22-30); Chloride 100 mmol/L (98-107); Estimated Creatinine Clearance 51 ml/min; Glucose 253 mg/dl (70-99); Potassium 3.5 mmol/L (3.5-5.1); Sodium 137 mmol/L (135-145); Total Bilirubin 0.8 mg/dl (0.2-1.3); Total Protein 6.9 g/dl (6.3-8.2); eGFR > 60.00
[2024-07-23 08:25] VITALS: BMI 29.0
--- NOTE | 2024-07-23 08:52 | PTCARENOTE ---
Agueda in Dr. Johnson's office made aware of glucose 253.
== END ==
LOC: REG 15:41
PROVIDERS: ATTENDING PHYSICIAN Orthopaedic Surgery Orthopaedic Surgery of the Spine; FAMILY PHYSICIAN Internal Medicine Geriatric Medicine
DX: M48.062 Spinal stenosis, lumbar region with neurogenic claudication (principal)
CPT/HCPCS: 36415; 80053; 85027; 87070; 93005

== ENCOUNTER → 2024-12-08 12:34 | Outpatient (REF) | payer MEDICARE, SELFPAY ==
[2024-12-08 13:36] LABS: Hematocrit 42.4 % (39.0-52.0); Hemoglobin 13.3 g/dL (13.0-18.0); Mean Corp Hgb Conc. 31.4 g/dL (33.0-37.0); Mean Corpuscular Volume 80.5 fL (80.0-94.0); Platelet Count 167 10^3/uL (130-400); Red Cell Dist. Width 15.8 % (11.5-14.5)
[2024-12-08 13:57] LABS: ALT (SGPT) 18 U/L (0-50); AST (SGOT) 20 U/L (17-59); Albumin 4.1 g/dl (3.5-5.0); Alkaline Phosphatase 68 U/L (38-126); Blood Urea Nitrogen 24 mg/dl (9-20); Calcium 9.6 mg/dl (8.4-10.2); Carbon Dioxide 24 mmol/L (22-30); Chloride 109 mmol/L (98-107); Glucose 164 mg/dl (70-99); Potassium 3.8 mmol/L (3.5-5.1); Sodium 140 mmol/L (135-145); Total Protein 7.2 g/dl (6.3-8.2); eGFR 55.09
== END ==
LOC: SDSPAT 12:34
PROVIDERS: ATTENDING PHYSICIAN Orthopaedic Surgery Orthopaedic Surgery of the Spine; FAMILY PHYSICIAN Internal Medicine Geriatric Medicine
DX: Z01.818 Encounter for other preprocedural examination (principal)
CPT/HCPCS: 36415; 80053; 85027; 86850; 86900; 86901; 87070; 87147

== ENCOUNTER 2024-12-22 06:13 | Day surgery (SDC) | payer MEDICARE, SELFPAY ==
[2024-12-08 13:21] VITALS: BMI 27.4
[2024-12-08 14:23] VITALS: BMI 27.4
[2024-12-22] VITALS (14 sets, daily range): BP systolic 103–141; BP diastolic 55–75; BMI 27.4
--- NOTE | 2024-12-22 09:13 | W.PN.UPDATE ---
Update Note
Progress Note Update
Lumbar stenosis w/ neurogenic claudication s/p R L4-L5 excision of cyst, L4-L5 PSF w/ Dr Johnson 12/22/24
- Pt will need back brace
DVT prophylaxis - b/l SCDs/TEDs
HTN - + parameters - monitor BP
CAD s/p CABG x3 2013
R carotid artery stenosis s/p R CEA 2022
PVD
- Resume ASA POD 5 if hemodynamically stable
Pulm HTN
CHFpEF
- Minimize hourly IVF rate to prevent fluid overload
- Resume home meds w/ SBP parameters to minimize post-surgical hypotension
- Fluid restrict, low sodium diet
- Monitor daily weight, I&Os
COPD w/ asthmatic component
ILD
Supplemental oxygen dependence
- Monitor O2
- Does use 1L O2 w/ exertion and 3L O2 at HS
- Resume daily Trelegy inhaler and albuterol inhaler prn
- IS
CKD stage 3 - minimize nephrotoxins
IDDM w/ neuropathy, recent A1c 7.5 06/2024 - monitor BS
- Diabetic, carb controlled diet
- Resume home insulin regimen
- Add Lyrica w/ potential taper upon d/c for neuropathic pain
GERD - continue PPI therapy
Probable cirrhosis per abdominal U/S 02/2024 - minimize hepatotoxins such as Tylenol
- Of note, LFTs WNL pre-op
H/o of anemia - H&H in AM
MRSA + nasal swab - add IV Vanco in addition to IV Ancef
H/o hypokalemia w/ associated diuretic use - continue supplement
- BMP in AM
Hypercholesterolemia
Mild valvular disease
H/o tobacco abuse
[2024-12-22] MEDS: CELEBREX 200 MG PO (09:36)
[2024-12-22] MEDS: METHOCARBAMOL 1500 MG PO (09:36)
[2024-12-22] MEDS: LYRICA 150 MG PO (09:36)
[2024-12-22] MEDS: TYLENOL 1000 MG PO (09:37)
[2024-12-22 09:56] LABS: Glucose - Point of Care 115 mg/dl (70-99)
[2024-12-22] MEDS: VANCOCIN 200 IV ×2 (10:08→21:52)
[2024-12-22] MEDS: NORMOSOL-R/PLASMALYTE-A 1000 IV ×2 (10:12→18:02)
[2024-12-22 11:46] LABS: Glucose - Point of Care 129 mg/dl (70-99)
[2024-12-22] MEDS: DILAUDID 0.5 MG IV ×3 (13:40→14:20)
[2024-12-22 13:47] LABS: Glucose - Point of Care 144 mg/dl (70-99)
[2024-12-22] MEDS: DILAUDID 0.25 MG IV (15:40)
[2024-12-22 17:21] LABS: Glucose - Point of Care 191 mg/dl (70-99)
[2024-12-22] MEDS: ANCEF 5 IV (18:03)
[2024-12-22] MEDS: TOPROL XL 25 MG PO (18:04)
[2024-12-22] MEDS: PROTONIX 40 MG PO (18:04)
[2024-12-22] MEDS: ZETIA 10 MG PO (18:04)
[2024-12-22] MEDS: NOVOLOG FLEXPEN-MODERATE RESISTANCE 1 UNITS SC (18:09)
--- NOTE | 2024-12-22 18:26 | PTCARENOTE ---
1700 Pt arrived from PACU. pT aaox3. VSS. IVF Infusing. pt 93% on 2LO2. Neurovascular checks with in normal limits. lower back dressing C/D/I. bed locked and in lowest position. oriented to room and call camp.
[2024-12-22] MEDS: SYMBICORT 80/4.5 MCG INHALER 2 PUFF INH (19:38)
[2024-12-22] MEDS: SENOKOT 17.2 MG PO (20:36)
[2024-12-22] MEDS: COLACE 100 MG PO (20:36)
[2024-12-22] MEDS: ROXICODONE 10 MG PO (20:55)
[2024-12-22 21:25] LABS: Glucose - Point of Care 339 mg/dl (70-99)
[2024-12-22] MEDS: LANTUS 0.3 UNITS SC (21:52)
[2024-12-22] MEDS: KCL 40 MEQ PO (21:55)
[2024-12-22] MEDS: LYRICA 75 MG PO (21:55)
[2024-12-23] MEDS: ANCEF 5 IV (02:26)
[2024-12-23 02:57] VITALS: BP 111/62
[2024-12-23 05:59] VITALS: BP 106/56; BMI 27.3
[2024-12-23] MEDS: FLOMAX 0.4 MG PO (06:02)
[2024-12-23 06:17] LABS: Hematocrit 37.5 % (39.0-52.0); Hemoglobin 11.9 g/dL (13.0-18.0)
[2024-12-23 06:41] LABS: Blood Urea Nitrogen 26 mg/dl (9-20); Calcium 8.7 mg/dl (8.4-10.2); Carbon Dioxide 28 mmol/L (22-30); Chloride 99 mmol/L (98-107); Estimated Creatinine Clearance 45 ml/min; Glucose 170 mg/dl (70-99); Potassium 3.8 mmol/L (3.5-5.1); Sodium 135 mmol/L (135-145); eGFR 55.09
[2024-12-23 07:20] LABS: Glucose - Point of Care 146 mg/dl (70-99)
[2024-12-23] MEDS: SPIRIVA RESPIMAT 2.5 MCG 2 PUFF INH (07:29)
[2024-12-23] MEDS: SYMBICORT 80/4.5 MCG INHALER 2 PUFF INH (07:29)
[2024-12-23 07:35] VITALS: BP 102/49
--- NOTE | 2024-12-23 07:49 | W.DS.TRANS ---
DC Summary - Visitor Services Coordinator
-
Discharge Instructions:
Sleep Apnea Risk High
Discharge Diagnosis/Procedures Lumbar stenosis w/ neurogenic claudication s/p R
L4-L5 excision of cyst, L4-L5 PSF w/ Dr Johnson /
Diet Diabetic, Carb Controlled,Restrict fluids to 48
oz,Low Sodium
Additional Diets Adequate hydration and minimize opioids to
prevent low blood pressure/dizziness.
Activity As tolerated
Additional Activity No heavy lifting >10 lbs
Driving Restrictions Not until seen by your Dr
Bathing Restrictions OK to shower in 4 days
Instructions:
Stand-Alone Forms: [facility] Lumbar D/C Inst.
Changes to Home Medications: No
Discharge Medications:
DC Medications w/original date entered in [employer]
albuterol sulfate 90 mcg/actuation aerosol inhaler 2 puff inhalation R Q4HPRN PRN SOB, Wheezes 02/26/22
aspirin 81 mg tablet,delayed release 81 mg PO DAILY Blood Clot Prevention/Tx 02/26/22
esomeprazole magnesium 40 mg capsule,delayed release 40 mg PO DAILY Gastrointestinal Issue 03/13/23
ezetimibe 10 mg tablet 10 mg PO DAILY 09/29/23
rosuvastatin 20 mg tablet 20 mg PO DAILY 09/29/23
insulin glargine 100 unit/mL (3 mL) subcutaneous pen (Basaglar KwikPen U-100 Insulin) 25 - 30 unit SC 06/14/24
macitentan 10 mg tablet (Opsumit) 10 mg PO DAILY 06/14/24
metoprolol succinate 25 mg tablet,extended release 24 hr (Toprol XL) 25 mg PO QPM 06/14/24
oxycodone-acetaminophen 5 mg-325 mg tablet 1 tab PO PRN PRN severe pains 06/14/24
tadalafil (pulm. hypertension) 20 mg tablet (pulmonary hypertension) 40 mg PO DAILY 06/14/24
spironolactone 25 mg tablet 12.5 mg PO DAILY 06/29/24
furosemide 40 mg tablet (Lasix) 40 mg PO DAILY PRN edema 07/21/24
potassium chloride 20 mEq tablet,extended release 40 meq PO TID 07/21/24
amlodipine 2.5 mg tablet 2.5 mg PO DAILY 12/16/24
dupilumab 300 mg/2 mL subcutaneous syringe (Dupixent) 300 mg SC Q2W 12/16/24
fluticasone fur. 100 mcg-umeclid 62.5 mcg-vilant 25 mcg inhalat.powder (Trelegy Ellipta) 1 inh inhalation DAILY 12/16/24
insulin lispro 100 unit/mL subcutaneous solution (Humalog U-100 Insulin) 1 sliding scale dose SC TID 12/16/24
Home Medication Changes
Pending Results: No
--- NOTE | 2024-12-23 07:49 | W.PN.SP ---
Today's Communication / Plan
-
s/p PSFLegs better
PT
D/c
Subjective / Objective
Subjective Data
Pt doing well
Leg better
Objective Data
Vital Signs
Temp Pulse Resp BP Pulse Ox
98.2 F 85 18 106/56 98
12/23/24 02:57 12/23/24 07:35 12/23/24 07:35 12/23/24 05:59 12/23/24 07:35
Intake and Output
12/22/24 12/23/24 12/24/24
06:59 06:59 06:59
Output Total 175 / 175
Balance -175 / -175
Output:
Urine, Voided 175 / 175
Other:
Number of approximated MODERATE 1
amounts of urine
Lab Data
12/23/24 05:43
12/23/24 05:43
Physical Exam
-
Both LE good strength
[2024-12-23] MEDS: ROXICODONE 10 MG PO (08:03)
[2024-12-23] MEDS: NOVOLOG FLEXPEN-MODERATE RESISTANCE SC (08:04)
[2024-12-23] MEDS: KCL 40 MEQ PO (09:03)
[2024-12-23] MEDS: CRESTOR 20 MG PO (09:03)
[2024-12-23] MEDS: PROTONIX 40 MG PO (09:03)
[2024-12-23] MEDS: COLACE 100 MG PO (09:03)
[2024-12-23] MEDS: ZETIA 10 MG PO (09:04)
[2024-12-23] MEDS: SENOKOT 17.2 MG PO (09:04)
[2024-12-23 09:28] VITALS: BP 104/52; BP 117/48; BP 93/46; BP 96/40; PULSE 68; O2SAT 92
--- NOTE | 2024-12-23 09:30 | CM ---
Addendum entered by Bonnie Tucker RN 12/23/24 10:22:
CM met with patient in room. Patient is agreeable to [facility]. Patient has oxygen in the home and stated that the company, who he doesn't know the name of, has recently been out to service his oxygen. [employer] does have a portable.
Patient stated his mother is in the ER and is unable to provide transportation. Patient stated he will have a ride.
PLAN: home with [facility].
Original Note:
Cm reviewed medical records. Patient has been recommended VN. CM sent referral via admission RN.
[2024-12-23 09:52] VITALS: BP 117/48; BP 125/59; O2SAT 91
[2024-12-23] MEDS: LYRICA 75 MG PO (10:12)
--- NOTE | 2024-12-23 10:52 | VNURNOTE ---
Home Health Liaison met with patient at bedside to discuss [facility] nurse/therapy, visits, schedule and homebound status. Patient is agreeable and understands that visits at home will be 2-3 x per week to assess and teach medical management.
Patient is aware that [facility] will contact them for start of care in 1-2 days after discharge from .
[facility] referral completed in [facility].
--- NOTE | 2024-12-23 10:58 | W.PN.ORTHO ---
Today's Communication / Plan
-
D/c today with VN, home PT/OT since clinically stable.
Assessment
.
Distal Motor Intact: Yes
Dressing:
Clean, dry and intact.
Assessment:
Lumbar stenosis w/ neurogenic claudication s/p R L4-L5 excision of cyst, L4-L5 PSF w/ Dr Johnson 12/22/24
- Pt will need back brace
DVT prophylaxis - b/l SCDs/TEDs
HTN - + parameters - BPs on softer side but asymptomatic
- Will order 1 dose of Midodrine prior to d/c to ensure BP stability
- Continue SBP parameters to anti-hypertensives while on post-surgical narcotics
- TEDs and minimization of opioids also recommended to avoid hypotension
CAD s/p CABG x3 2013
R carotid artery stenosis s/p R CEA 2022
PVD
- Resume ASA POD 5 since hemodynamically stable
Pulm HTN
CHFpEF
- Minimized hourly IVF rate to prevent fluid overload
- Resumed home meds w/ SBP parameters to minimize post-surgical hypotension
- Continue to fluid restrict, low sodium diet
- Daily weight, I&Os stable
COPD w/ asthmatic component
ILD
Supplemental oxygen dependence
- Does use 1L O2 w/ exertion and 3L O2 at HS per records; however, pt clarified today that if SOB at home, he uses 3L O2. He has been maintained on 1-3L while here. Denies acute SOB. Lung sounds stable.
- Resumed daily Trelegy inhaler and albuterol inhaler prn
- Continue IS
CKD stage 3 - continue to minimize nephrotoxins
IDDM w/ neuropathy, recent A1c 7.5 06/2024 - BS readings improving w/ measures below
- Diabetic, carb controlled diet
- Resumed home insulin regimen
- Add Lyrica w/ potential taper upon d/c for neuropathic pain
- F/u A1c w/ PCP
GERD - continue PPI therapy
Probable cirrhosis per abdominal U/S 02/2024 - minimize hepatotoxins such as Tylenol. Pt agreeable to only use for breakthrough pain prn.
- Of note, LFTs WNL pre-op
H/o of anemia - H&H 11.9 POD 1
- Asymptomatic, hemodynamically stable
MRSA + nasal swab - added IV Vanco in addition to IV Ancef
H/o hypokalemia w/ associated diuretic use - continue supplement
- K+ stable at 3.8 POD 1
Hypercholesterolemia
Mild valvular disease
H/o tobacco abuse
Plan
.
Surgery / Date: R L4-L5 excision of cyst, L4-L5 PSF w/ Dr Johnson 12/22
DVT Prophylaxis: Other (b/l SCDs/TEDS)
Activity:
Out of bed.
PT/OT
Discharge Plan: Home w/ VN
Subjective
.
.:
Patient examined resting in his chair.
On 1-3L of supplemental O2 during admission. Not surprising for patient.
Denies any acute SOB or other complaints. Generally, feels well.
AM labs stable and at baseline.
Eager for potential d/c today.
Vital Signs and Labs
.
Vital Signs and Labs:
Lab Results
12/23/24 05:43
12/23/24 05:43
Temp Pulse Resp BP Pulse Ox
98.0 F 64 16 102/49 96
12/23/24 07:35 12/23/24 07:35 12/23/24 07:35 12/23/24 07:35 12/23/24 07:35
Physical Exam
-
HEENT: No pallor, cyanosis, or jaundice. Throat clear.
NECK: Supple. No JVD.
RESPIRATORY: Distant but overall clear throughout.
CVS: S1, S2 normal. RRR.�
ABDOMEN: Soft, non-tender. No distension.
EXTREMITIES: Strength equal, no calf pain with palpation/dorsiflexion. Calves soft.
EXPLOSIVE ORDNANCE TECHNICIAN: AOx3. No focal deficits. water systems engineer grossly intact
[2024-12-23 11:00] VITALS: BP 100/53
--- NOTE | 2024-12-23 11:19 | W.DS.TRANS ---
DC Summary - Lane Attendant
-
Discharge Instructions:
Sleep Apnea Risk High
Discharge Diagnosis/Procedures Lumbar stenosis w/ neurogenic claudication s/p R
L4-L5 excision of cyst, L4-L5 PSF w/ Dr Johnson 7/
Diet Diabetic, Carb Controlled,Restrict fluids to 48
oz,Low Sodium
Additional Diets Adequate hydration, MORAIMA stockings, and minimize
opioids to prevent low blood pressure/dizziness.
Activity As tolerated
Additional Activity No heavy lifting >10 lbs
Driving Restrictions Not until seen by your Dr
Bathing Restrictions OK to shower in 4 days
Other Services VN,PT,OT
Instructions:
Stand-Alone Forms: [facility] D/C Inst.
Changes to Home Medications: Yes
Discharge Medications:
DC Medications w/original date entered in [employer]
albuterol sulfate 90 mcg/actuation aerosol inhaler 2 puff inhalation R Q4HPRN PRN SOB, Wheezes 02/26/22
aspirin 81 mg tablet,delayed release 81 mg PO DAILY Blood Clot Prevention/Tx 02/26/22
Held on 12/23/24. Instructions: Resume on 12/27/24.
esomeprazole magnesium 40 mg capsule,delayed release 40 mg PO DAILY Gastrointestinal Issue 03/13/23
ezetimibe 10 mg tablet 10 mg PO DAILY 09/29/23
rosuvastatin 20 mg tablet 20 mg PO DAILY 09/29/23
insulin glargine 100 unit/mL (3 mL) subcutaneous pen (Basaglar KwikPen U-100 Insulin) 25 - 30 unit SC HS 06/14/24
macitentan 10 mg tablet (Opsumit) 10 mg PO DAILY 06/14/24
metoprolol succinate 25 mg tablet,extended release 24 hr (Toprol XL) 25 mg PO QPM 06/14/24
tadalafil (pulm. hypertension) 20 mg tablet (pulmonary hypertension) 40 mg PO DAILY 06/14/24
potassium chloride 20 mEq tablet,extended release 40 meq PO TID 07/21/24
dupilumab 300 mg/2 mL subcutaneous syringe (Dupixent) 300 mg SC Q2W 12/16/24
fluticasone fur. 100 mcg-umeclid 62.5 mcg-vilant 25 mcg inhalat.powder (Trelegy Ellipta) 1 inh inhalation DAILY 12/16/24
insulin lispro 100 unit/mL subcutaneous solution (Humalog U-100 Insulin) 1 sliding scale dose SC TID 12/16/24
Saccharomyces boulardii 250 mg capsule (Florastor) 250 mg PO BID #10 caps 12/23/24
acetaminophen 500 mg tablet (Tylenol Extra Strength) 500 mg PO Q6HPRN PRN breakthrough pain #30 tabs 12/23/24
amlodipine 2.5 mg tablet 2.5 mg PO DAILY #1 tab 12/23/24
cephalexin 500 mg capsule 500 mg PO Q6H #20 caps 12/23/24
docusate sodium 100 mg capsule 100 mg PO BID #30 caps 12/23/24
furosemide 40 mg tablet (Lasix) 40 mg PO DAILY PRN edema #1 tab 12/23/24
ondansetron HCl 4 mg tablet 4 mg PO Q6H PRN nausea and vomiting #30 tabs 12/23/24
oxycodone 5 mg tablet 5 - 10 mg (1 - 2 x 5 mg) PO Q6H PRN moderate-severe pain #30 tabs 12/23/24
pregabalin 75 mg capsule 75 mg PO BID neuropathic pain #15 caps 12/23/24
sennosides 8.6 mg tablet (Sachi-palmira) 17.2 mg (2 x 8.6 mg) PO BID #30 tabs 12/23/24
spironolactone 25 mg tablet 12.5 mg (1/2 x 25 mg) PO DAILY #1 tab 12/23/24
Home Medication Changes
Saccharomyces boulardii 250 mg capsule (Florastor) 250 mg PO BID #10 caps 12/23/24
acetaminophen 500 mg tablet (Tylenol Extra Strength) 500 mg PO Q6HPRN PRN breakthrough pain #30 tabs 12/23/24
cephalexin 500 mg capsule 500 mg PO Q6H #20 caps 12/23/24
docusate sodium 100 mg capsule 100 mg PO BID #30 caps 12/23/24
ondansetron HCl 4 mg tablet 4 mg PO Q6H PRN nausea and vomiting #30 tabs 12/23/24
oxycodone 5 mg tablet 5 - 10 mg (1 - 2 x 5 mg) PO Q6H PRN moderate-severe pain #30 tabs 12/23/24
pregabalin 75 mg capsule 75 mg PO BID neuropathic pain #15 caps 12/23/24
sennosides 8.6 mg tablet (Sachi-palmira) 17.2 mg (2 x 8.6 mg) PO BID #30 tabs 12/23/24
Pending Results: No
[2024-12-23 11:41] LABS: Glucose - Point of Care 159 mg/dl (70-99)
[2024-12-23] MEDS: NOVOLOG FLEXPEN-MODERATE RESISTANCE 1 UNITS SC (11:51)
== END 2024-12-23 12:44 | disposition home or self-care (01) ==
LOC: SDS 06:13
PROVIDERS: Physician Assistant; ATTENDING PHYSICIAN Orthopaedic Surgery Orthopaedic Surgery of the Spine; FAMILY PHYSICIAN Internal Medicine Geriatric Medicine
DX: M48.062 Spinal stenosis, lumbar region with neurogenic claudication (principal); Z98.1 Arthrodesis status; E11.22 Type 2 diabetes mellitus with diabetic chronic kidney disease; I25.10 Atherosclerotic heart disease of native coronary artery without angina pectoris; N18.30 Chronic kidney disease, stage 3 unspecified; J84.9 Interstitial pulmonary disease, unspecified; Z79.4 Long term (current) use of insulin; Z95.1 Presence of aortocoronary bypass graft; Z99.81 Dependence on supplemental oxygen
CPT/HCPCS: 22612; 22842; 20930; 72100; 76000; 80048; 82962; 85014; 85018; 94640; 97116; 97163; 97167; 97530; 97535; C1713; C1776

== ENCOUNTER → 2025-02-19 10:49 | Outpatient (REF) | payer MEDICARE, SELFPAY | LOC: RAD 10:49 | PROVIDERS: ATTENDING PHYSICIAN Nurse Practitioner Family; FAMILY PHYSICIAN Internal Medicine Geriatric Medicine | DX: J84.9 Interstitial pulmonary disease, unspecified (principal); R91.1 Solitary pulmonary nodule | CPT/HCPCS: 71250 ==

== ENCOUNTER 2025-04-02 19:30 | Emergency (ER) | payer MEDICARE, SELFPAY ==
[2025-04-02 19:31] VITALS: BP 94/64
[2025-04-02 20:00] VITALS: BP 82/54
[2025-04-02 20:07] VITALS: BP 84/58
--- NOTE | 2025-04-02 20:14 | ED.GENMED ---
History of Present Illness
General
Chief Complaint: Fall
Source: patient
Exam Limitations: none
Time Seen by Provider: 04/02/25 19:32
History of Present Illness
History of Present Illness:
69-year-old male with history of COPD, syncope, CHF, CAD presents via EMS from home after he fell. Standing eating a sandwich and got weak and fell. He denies any chest pain. He did not pass out. He was unable to remove himself from the floor.
His mother called EMS. Patient states he is feeling better now than what he was earlier. He admits to drinking 3 beverages that contained scotch prior to this happening. He has no complaints offered at this time.
Past History
Past History
ED Past Medical History: CAD, COPD, GERD, HTN, Hypercholesterolemia, IDDM and Other (Dizzines, Sciatic pain, PNA, Anemia, )
ED Past Surgical History: Cardiac (Triple bypass, Right carotid surgery) and Orthopedic (Laminectomy L5-S1)
Social History
Tobacco: Smoker
Alcohol: Daily (Whisky 2-3)
Drug: None
Personal: Single
Living: alone
Employment: Not employed
Family History
Family History: Negative Diabetes, Hypertension or CAD
Phy Exam
Physical Exam
Physical Exam:
General: Well-appearing male no acute respiratory distress
HEENT: Normal cephalic atraumatic
Heart: Regular rate and rhythm
Lungs: Clear no wheeze
Abdomen is soft nontender nondistended
Extremities: No cyanosis or edema
Course
Orders/Labs/Results
Orders:
Orders
04/02/25 19:40
Electrocardiogram (*1) Urgent
Reason for Study: Syncope
EKG- Treatment ONCE
04/02/25 20:14
Complete Blood Count/With Diff Urgent
Comprehensive Metabolic Panel Urgent
Abnormal Lab Results
04/02/25
20:14
MCH 26.1 L pg
(27.0-31.0)
MCHC 30.9 L g/dL
(33.0-37.0)
RDW 14.8 H %
(11.5-14.5)
MPV 10.5 H fL
(7.4-10.4)
Abs Immat Gran (auto) 0.1 H 10^3/uL
(0-0.05)
Absolute Neuts (auto) 7.0 H 10^3/uL
(1.4-6.5)
Absolute Lymphs (auto) 0.9 L 10^3/uL
(1.2-3.4)
Absolute Monos (auto) 0.8 H 10^3/uL
(0.1-0.6)
Immature Gran % 0.7 H %
(0-0.5)
Neutrophils % 77.9 H %
(42.2-75.2)
Lymphocytes % 10.5 L %
(20.5-51.1)
Sodium 133 L mmol/L
(135-145)
Carbon Dioxide 18 L mmol/L
(22-30)
BUN 26 H mg/dl
(9-20)
Creatinine 1.6 H mg/dL
(0.7-1.3)
Glucose 176 H mg/dl
(70-99)
04/02/25 20:14
04/02/25 20:14
Vital Signs
Initial and Last Documented VS:
Initial Vital Signs
Temp Pulse Resp BP Pulse Ox
97.9 F 78 24 94/64 100
04/02/25 19:31 04/02/25 19:31 04/02/25 19:31 04/02/25 19:31 04/02/25 19:31
Last Documented Vital Signs
Temp Pulse Resp BP Pulse Ox
97.9 F 87 28 95/57 100
04/02/25 19:31 04/02/25 21:00 04/02/25 21:00 04/02/25 21:00 04/02/25 20:17
MDM/Problems Addressed
Differential Diagnosis Includes:
Patient was weak and fell. He is chronically on oxygen. He is on his baseline oxygen no hypoxia here. His blood pressure is on the softer side of which he has been stating that readings have been low lately. Will continue to monitor patient.
Check basic labs and EKG. Question syncope versus orthostasis versus mechanical fall.
*Pulse Oximetry
SaO2: 100
Nasal Cannula flow liters per minute: 2
Oxygen Mode of Delivery: Room air
Patient hypoxic: no
*Critical Care Note
Total Time (30-74mins, 75-104mins- exclusive of procedures): Not Applicable
Update Note
Update Note:
Labs without significant change. EKG reviewed and interpreted. Sinus rhythm with a rate of 75 no ischemic changes patient has been ambulatory here patient expresses desire to go home multiple times. Does not want to be in the hospital. He feels
better than what he did when he first fell. No indication to keep patient. Stable for discharge with follow-up
ED Attending Note
-
Portions of this chart may have been created with voice recognition software.� Occasional wrong word or��sound alike� substitutions may have occurred due to the inherent limitations of voice recognition software.
Discharge Plan
Departure
Patient Disposition: Home (Routine Discharge)
Date of Disposition: 04/02/25
Time of Disposition: 21:16
Patient with high blood pressure during this ER visit?: No
Discharge Problem:
Fall
Instructions: Preventing falls in adults
Prescriptions:
No Action
aspirin 81 mg Tablet,Delayed Release (Dr/Ec)
81 mg PO DAILY
albuterol sulfate 90 mcg/actuation Hfa Aerosol Inhaler
2 puff INHALATION R Q4HPRN PRN (Reason: SOB, Wheezes)
esomeprazole magnesium 40 mg Capsule,Delayed Release(Dr/Ec)
40 mg PO DAILY
ezetimibe 10 mg Tablet
10 mg PO DAILY
rosuvastatin 20 mg Tablet
20 mg PO DAILY
metoprolol succinate [Toprol XL] 25 mg Tablet Extended Release 24 Hr
25 mg PO QPM
insulin glargine [Basaglar KwikPen U-100 Insulin] 100 unit/mL (3 mL) Insulin Pen
25 - 30 unit SC HS
Patient Comments:
pt took 20 Units at bedtime last pm
Opsumit 10 mg Tablet
10 mg PO DAILY
Patient Comments:
pulm hypertension
tadalafil (pulm. hypertension) 20 mg Tablet
40 mg PO DAILY
potassium chloride 20 mEq tablet extended release
40 meq PO TID
insulin lispro [Humalog U-100 Insulin] 100 unit/mL Solution
1 sliding scale dose SC TID
Dupixent Syringe 300 mg/2 mL Syringe
300 mg SC Q2W
Trelegy Ellipta 100-62.5-25 mcg Blister With Device
1 inh INHALATION DAILY
furosemide [Lasix] 40 mg tablet
40 mg PO DAILY PRN (Reason: edema) Qty: 1 0RF
amlodipine 2.5 mg Tablet
2.5 mg PO DAILY Qty: 1 0RF
spironolactone 25 mg Tablet
12.5 mg PO DAILY Qty: 1 0RF
Activity Restrictions/Additional Instructions:
Return here for worsening symptoms otherwise follow-up with your doctors
Interventions
Interventions:
*Risk Screen - Suicide Last Done: 04/02/25 19:31
*General Assessment Last Done: 04/02/25 20:07
*Neglect/Abuse Screening Last Done: 04/02/25 19:31
*ED- Fall Risk Assessment Last Done: 04/02/25 20:07
*ED COVID-19 Vaccine History Last Done: 04/02/25 20:15
*ED Influenza Vaccine History Last Done: 04/02/25 20:15
ED-Musculoskeletal Assessment Last Done: 04/02/25 20:24
ED- Neurological Assessment Last Done: 04/02/25 20:24
ED-Skin Assessment Last Done: 04/02/25 20:24
Discharge Date and Time
Print Language: FRENCH
[2025-04-02 20:24] LABS: Hematocrit 44.7 % (39.0-52.0); Hemoglobin 13.8 g/dL (13.0-18.0); Mean Corp Hgb Conc. 30.9 g/dL (33.0-37.0); Mean Corpuscular Volume 84.7 fL (80.0-94.0); Nucleated Red Blood Cells % 0 % (-); Platelet Count 232 10^3/uL (130-400); Red Cell Dist. Width 14.8 % (11.5-14.5)
--- NOTE | 2025-04-02 20:25 | EDRN ---
Pt admits to 3 alcoholic drinks tonight. Pt was in the kitchen and fell. Pt unsure why he fell but thinks it is probably from low bp which is a chronic issue for him. Pt was not using his cane at the time of the fall. Pt was unable to get
himself up from the floor so his mother called 911 and pt was brought to the ED for evaluation. 'Get me the hell outta here!' pt repeats. Pt adamant there is nothing wrong with him, he feels fine and he wants to go home. 'I'm not drunk if that is
what you think.' Assured pt that was not a concern and asked him about his low bp. Pt says sometimes he gets dizzy when he sits or stands up and it has been an ongoing issue related to his medications. Pt denies recent changes in medications. Pt
denies injury from fall and is repeatedly insistent he is fine and wants to go home. Pt agreeable to waiting for lab work results 'Put a dasilva on them for me so I can get outta here.' Pt denies pain. Pt uses O2 when he goes to sleep at night, once
in awhile during the day time. Pt denies need for O2 at this time so it was removed. No loc, neck pain, new back pain, headache/head injury, cp, sob, abd pain, n/v, weakness, dizziness.
[2025-04-02 20:51] LABS: ALT (SGPT) 16 U/L (0-50); AST (SGOT) 24 U/L (17-59); Albumin 4.3 g/dl (3.5-5.0); Alkaline Phosphatase 57 U/L (38-126); Blood Urea Nitrogen 26 mg/dl (9-20); Calcium 9.7 mg/dl (8.4-10.2); Carbon Dioxide 18 mmol/L (22-30); Chloride 99 mmol/L (98-107); Glucose 176 mg/dl (70-99); Potassium 3.8 mmol/L (3.5-5.1); Sodium 133 mmol/L (135-145); Total Protein 7.6 g/dl (6.3-8.2); eGFR 46.93
[2025-04-02 21:00] VITALS: BP 95/57
== END 2025-04-02 21:29 | disposition home or self-care (01) ==
LOC: EMR 19:30
PROVIDERS: Physician Assistant; EMERGENCY PHYSICIAN Emergency Medicine
DX: Z04.3 Encounter for examination and observation following other accident (principal); W19.XXXA Unspecified fall, initial encounter; E11.9 Type 2 diabetes mellitus without complications; E78.00 Pure hypercholesterolemia, unspecified; I11.0 Hypertensive heart disease with heart failure; I50.9 Heart failure, unspecified; I25.10 Atherosclerotic heart disease of native coronary artery without angina pectoris; J44.9 Chronic obstructive pulmonary disease, unspecified; Z79.4 Long term (current) use of insulin; F17.200 Nicotine dependence, unspecified, uncomplicated
CPT/HCPCS: 99284; 80053; 85025; 93005

== ENCOUNTER 2025-04-13 13:13 | Day surgery (SDC) | payer MEDICARE, SELFPAY ==
[2025-04-13 13:43] VITALS: BP 156/85; BMI 28.8
[2025-04-13 13:44] VITALS: BP 156/85
[2025-04-13 13:58] LABS: Glucose - Point of Care 127 mg/dl (70-99)
--- NOTE | 2025-04-13 16:01 | ITS.CL.PACE ---
Metal Door Assembler - Pacemaker Implant
Pacemaker Implant
Procedure Report:
PACEMAKER IMPLANT REPORT
Primary Care Provider: Dr Farzad Smith
Primary Store Shopper: Dr. Raman Cox
Primary Detailer Pharmaceuticals: Dr Dano Mehta
Date of Procedure: April 13, 2025
Procedure:
Implantation of dual-chamber permanent pacemaker utilizing the left bundle branch for conduction system pacing
Indication/Diagnosis:
Non-reversible symptomatic bradycardia due to sinus node dysfunction and third degree atrioventricular block
HISTORY:
Recurrent syncope associated with periods of sinus bradycardia and complete heart block and asystolic periods of up to 10 seconds. This has been captured on implanted loop recorder.
Etiology appears to be cough syncope. He has had chronic unrelenting cough not amenable to medical therapy.
After informed consent was obtained, 'time out' was called and confirmed, the patient was prepped and draped in a sterile fashion. Lidocaine with epi was used for local anesthesia. Central venous access was obtained via subclavian venipuncture. An
incision was made along the left chest and a pre-pectoral pocket was formed. Using a Seldinger technique and peel-away sheaths, the pacing leads were placed under fluoroscopic guidance.
Fluoroscopy was used to determine likely anatomic site for left bundle branch pacing. The Medtronic C315 sheath was used to deliver the Medtronic 3830 Selectsecure pacing lead with the helix exposed just exposed from the sheath tip during continuous
monitoring when pacemapping the septum during gentle clockwise rotation to obtain a paced QRS morphology of a W pattern in lead V1. Once the suspected optimal site was identified, lead deployment was performed with several rapid rotations as paced
QRS morphology was intermittently monitored until a paced QRS complex in lead V1 demonstrated development of an R wave [ ] (qR or rSR).
Unipolar pacing impedance dropped by approximately 100-200 ohms suggesting it had reached the left ventricular subendocardial.
Stable VEgm injury current is present throughout final lead position including at end of case, suggesting there was no perforation through the septum into the LV cavity.
Unipolar pacing impedance is 1000 Ohms
Unipolar pacing threshold is stable at 1 V @ 0.4 ms.
Final conduction system paced QRS complex duration is 97 ms
LVAT is 70 ms and peak V5 -> peak V1 timing is 20 ms
There is QRS transition to LVSP / selective LBBP during threshold testing
Right atrial lead was placed at the RAA.
Once testing (see below) showed adequate and stable function, the leads were secured using the suture sleeves. The pocket was liberally irrigated with antibiotic solution. The leads were connected to the generator header and the leads and
generator were placed within the pocket. Fluoroscopy confirmed stable lead position. The pocket was closed in the typical fashion.
Fluoroscopy was used to guide lead placement.
IMPLANTS:
Medtronic [id number], SN: [id number], Left Pectoral
RA: Medtronic 5076-45, SN: [id number], RAA
Left Bundle: Medtronic 3830 , SN:[id number], Interventricular septum at LBB
DEVICE TESTING:
Sensing: RA 1.5 mV, RV 0.7 mV
Capture: RA 2 point V@0.4ms, RV 12 V@0.4ms
Ohms: RA 450, RV 760 (biPolar)
FINAL PROGRAMMING
Jaziel Pacing: AAIR+ 60-130 ppm
COMPLICATIONS:
None
CONCLUSIONS:
1: Successful implant of dual chamber permanent pacemaker utilizing Left Bundle Branch conduction system capture for ventricular resynchronization pacing.
RECOMMENDATIONS:
1. Post-op care (tele, CXR, IV abx)
2. In-Office wound check in 5-7 days
Copy to:
Primary Care Provider: Dr Farzad Smith
Primary Store Shopper: Dr. Raman Cox
Primary Detailer Pharmaceuticals: Dr Dano Mehta
--- NOTE | 2025-04-13 16:09 | ITS.CL.IMPLP ---
Boiler House Operator - Implant Loop
Implant Loop
Procedure Report:
LINQ IMPLANTED MONITOR REMOVAL
Date of Procedure: April 13, 2025
Primary Care Provider: Dr Farzad Smith
Primary Solution Advisor: Dr. Raman Cox
Primary Airplane Tube Builder: Dr Dano Mehta
PROCEDURES:
1. Removal of implanted loop recorder
INDICATION FOR PROCEDURE:
Diagnosis/etiology of syncope determined via monitoring of the loop recorder. This resulted in implantation of pacemaker for symptomatic bradycardia. There is no longer indication for monitoring via the loop recorder.
After informed consent was obtained,'time out' was called and confirmed, the patient was prepped and draped in a sterile fashion.
SEDATION: Via the anesthesia department with conscious sedation
Lidocaine with epi was used for local anesthesia. An incision was made along the prior incision and the Linq monitor was carefully dissected from the pocket. The pocket was liberally irrigated with antibiotic solution. The pocket was closed in
the typical fashion.
COMPLICATIONS:
None
CONCLUSIONS:
1. Removal of implanted loop recorder.
RECOMMENDATIONS:
In-Office wound check in 7-14 days.
Copy to:
Primary Care Provider: Dr Farzad Smith
Primary Solution Advisor: Dr. Raman Cox
Primary Airplane Tube Builder: Dr Dano Mehta
[2025-04-13 16:28] VITALS: BP 134/99
[2025-04-13 17:00] VITALS: BMI 28.8
--- NOTE | 2025-04-13 17:39 | PTCARENOTE ---
Received the patient from the labor/excavator in his bed. He is aaox3, vital signs are stable. NSR with occasional A-pacing is noted on the monitor. His left chest wall dressing is c/d/i. A pressure dressing is noted and his left arm is in an immobilizer.
He has no complaints of pain or discomfort. Activity restrictions were reviewed with the patient. ECG done.
[2025-04-13 18:05] VITALS: BP 144/65
--- NOTE | 2025-04-13 18:12 | PTCARENOTE ---
The patient states he only wears 3L of O2 at night while sleeping. He ambulated to the bathroom x1 assist without O2 on. When he finished voiding in the BR, he sat in the chair and his sat on RA was 94% at rest. I reapplied his 4L of O2 and he
recovered to 96% on 4L at rest. He insits he doesn't wear O2 during the day at home.
[2025-04-13 18:17] LABS: Glucose - Point of Care 139 mg/dl (70-99)
[2025-04-13 18:41] VITALS: BP 123/60
[2025-04-13] MEDS: TYLENOL 650 MG PO (19:13)
[2025-04-13] MEDS: SYMBICORT 80/4.5 MCG INHALER INH (19:58)
[2025-04-13 22:22] VITALS: BP 128/61
[2025-04-13 22:27] LABS: Glucose - Point of Care 119 mg/dl (70-99)
[2025-04-13] MEDS: MOTRIN 400 MG PO (22:28)
[2025-04-13] MEDS: LANTUS 0.25 UNITS SC (22:29)
[2025-04-13] MEDS: OCEAN, SALINE MIST 2 SPRAYS NASAL (22:29)
[2025-04-13] MEDS: ANCEF 5 IV (22:29)
--- NOTE | 2025-04-13 23:43 | PTCARENOTE ---
Assumed care of patient at change of shift. Pt AAOx3, sating 94-95% on 4L of O2. Tele remains SR w/ occasional PVCs and Apaced at times. HR in the 60-70's at rest. Patient c/o pain at the surgical site, and has chronic back pain. Medications
administered--see MAR for further details. Left anterior chest dressing intact w/ pressure dressing present. LUE remains in immobilizer. Patient educated on activity restrictions. Patient c/o nasal congestion. Orders obtained for PRN Nasal
spray--see MAR. Patient requires standby assist, and has personal cane at bedside. Denies any dizziness. POC reviewed, call camp within reach.
[2025-04-14 03:52] VITALS: BP 148/78
[2025-04-14 03:53] VITALS: BMI 28.2
[2025-04-14] MEDS: TYLENOL 650 MG PO ×2 (04:35→09:28)
[2025-04-14] MEDS: OCEAN, SALINE MIST 2 SPRAYS NASAL (04:36)
[2025-04-14 04:56] LABS: Hematocrit 41.1 % (39.0-52.0); Hemoglobin 13.1 g/dL (13.0-18.0); Mean Corp Hgb Conc. 31.9 g/dL (33.0-37.0); Mean Corpuscular Volume 81.1 fL (80.0-94.0); Platelet Count 184 10^3/uL (130-400); Red Cell Dist. Width 14.7 % (11.5-14.5)
[2025-04-14 05:09] LABS: Blood Urea Nitrogen 24 mg/dl (9-20); Calcium 9.5 mg/dl (8.4-10.2); Carbon Dioxide 27 mmol/L (22-30); Chloride 101 mmol/L (98-107); Estimated Creatinine Clearance 38 ml/min; Glucose 101 mg/dl (70-99); Magnesium 1.2 mg/dl (1.6-2.3); Potassium 3.8 mmol/L (3.5-5.1); Sodium 135 mmol/L (135-145); eGFR 50.71
[2025-04-14] MEDS: ANCEF 5 IV (05:36)
[2025-04-14] MEDS: MAGNESIUM OXIDE 400 MG PO (06:04)
[2025-04-14 06:46] VITALS: BP 126/64
[2025-04-14] MEDS: SPIRIVA RESPIMAT 2.5 MCG 2 PUFF INH (07:43)
[2025-04-14] MEDS: SYMBICORT 80/4.5 MCG INHALER 2 PUFF INH (07:43)
--- NOTE | 2025-04-14 08:10 | PTCARENOTE ---
Assumed care of pt from [facility] shift; Pt AAO3 w/no c/o CP or SOB. Pt does report 'mild 3/10' pain at the [facility] divice site. PRN Tylenol administered by [facility] shift, this RN will confirm when pt can have another dose. Pt's VSS w/HR in the 60's
& BP 126/64. Pt is SR w/occasional A-pacing & PVC's. Pt w/L chest wall dressing C/D/I w/no signs or symptoms of bleeding or hematoma. Pt assisted OOB to BR & then to CH. Plan of care discussed w/pt & pt anxious for D/C today. Pt w/callbell within
reach & no addtl needs at this time.
[2025-04-14 08:31] LABS: Glucose - Point of Care 96 mg/dl (70-99)
--- NOTE | 2025-04-14 09:03 | W.PN.CARDCBS ---
Addendum entered and electronically signed by Eugenio Paul MD 04/14/25 09:39:
patient seen and examined
agree with SUPERVISOR BORDER DEPARTMENT note and assessment
agree with SUPERVISOR [employer] plan
cxr reviewed-stable lead positions
exam:
left deltopectoral groove incision cdi
no hematoma or sig pain
tele atrial pacing noted
cxr reviewed
aao x 3
non focal neurologically
Impression:
Symptomatic complete heart block with syncope
post DC PPM and Linq removal 04/13/25
Chronic HFpEF
CAD/CABG
HTN
HLD
Severe Pulmonary HTN
DM2
GERD
PAD
COPD
CKD 3b
Hypomagnesium
chronic cough
Plan:
post device site stable
tele SR with occ Apacing
CXR no PTX, leads in good position
Mg 1.2 this am, repleted, will add PO mag at d/c and recheck labs in 1 week
Cr stable 1.5 recheck in 1 week
Activity restrictions reviewed
inc check in 1 week
home today
Original Note:
Today's Communication / Plan
-
post DC PPM and linq explant
stable for d/c home
replete eletryolytes and repeat BMP/Mg in 1 week
Impression / Plan
-
PCP: Danni Smith MD
CDY: Raman Cox and Farheen Bundy MD (Pulmonary HTN)
Impression:
Symptomatic complete heart block with syncope
post DC PPM and Linq removal 04/13/25
Chronic HFpEF
CAD/CABG
HTN
HLD
Severe Pulmonary HTN
DM2
GERD
PAD
COPD
CKD 3b
Hypomagnesium
chronic cough
Plan:
post device site stable
tele SR with occ Apacing
CXR no PTX, leads in good position
Mg 1.2 this am, repleted, will add PO mag at d/c and recheck labs in 1 week
Cr stable 1.5 recheck in 1 week
Activity restrictions reviewed
inc check in 1 week
home today
Progress Note - Administrative Accountant
Subjective
Date of Service: April 14, 2025
denies cp, sob, mild inc soreness
Objective
Labs:
04/14/25 04:03
04/14/25 04:03
Labs
Hgb 13.1 g/dL (13.0-18.0) 04/14/25 04:03
Hct 41.1 % (39.0-52.0) 04/14/25 04:03
Plt Count 184 10^3/uL (130-400) 04/14/25 04:03
Sodium 135 mmol/L (135-145) 04/14/25 04:03
Potassium 3.8 mmol/L (3.5-5.1) 04/14/25 04:03
BUN 24 mg/dl (9-20) H 04/14/25 04:03
Creatinine 1.5 mg/dL (0.7-1.3) H 04/14/25 04:03
Glucose 101 mg/dl (70-99) H 04/14/25 04:03
Vital Signs and I&O:
Vital Signs
Temp Pulse Resp BP Pulse Ox
98 F 88 15 126/64 97
04/14/25 06:45 04/14/25 08:00 04/14/25 07:48 04/14/25 06:46 04/14/25 06:46
Vital Signs
Temp Pulse Resp BP Pulse Ox
98 F 88 15 126/64 97
04/14/25 06:45 04/14/25 08:00 04/14/25 07:48 04/14/25 06:46 04/14/25 06:46
Intake & Output
04/12/25 04/13/25 04/14/25 04/15/25
06:59 06:59 06:59 06:59
Intake Total 360 / 360
Balance 360 / 360
Physical Exam
Physical Exam
NAD< AOX3
S1, S2, RRR
coarse t/o clears with cough, diminished no wheeze
SNTND Bsx4
L CW Site c/d/i no HT
[2025-04-14] MEDS: ZETIA 10 MG PO (09:28)
[2025-04-14] MEDS: MAGNESIUM SULFATE 50 IV (09:28)
[2025-04-14] MEDS: PROTONIX 40 MG PO (09:28)
[2025-04-14] MEDS: ASPIR LOW (ENTERIC COATED) 81 MG PO (09:28)
[2025-04-14] MEDS: NON-FORMULARY ITEM 40 MG PO (09:33)
[2025-04-14] MEDS: ALDACTONE 12.5 MG PO (09:38)
[2025-04-14] MEDS: NON-FORMULARY ITEM 10 MG PO (09:39)
[2025-04-14] MEDS: CRESTOR 20 MG PO (09:39)
[2025-04-14 10:11] LABS: Glycohemoglobin (HgbA1c) 7.2 % (4.0-5.9)
[2025-04-14 11:06] VITALS: BP 104/60
--- NOTE | 2025-04-14 11:54 | W.DS.TRANS ---
DC Summary - [employer]
-
Discharge Instructions:
Sleep Apnea Risk Intermediate
Discharge Diagnosis/Procedures Pacemaker implant and Linq explant
Diet Low Cholesterol,Diabetic, Carb Controlled
Driving Restrictions No driving for 1 week
Bathing Restrictions OK to Shower
Blood Work Check BMP/Magnesium in 1 week
Instructions:
Stand-Alone Forms: DC Inst - Implanted Device
Changes to Home Medications: Yes
Discharge Medications:
DC Medications w/original date entered in [facility]
albuterol sulfate 90 mcg/actuation aerosol inhaler 2 puff inhalation R [id number] PRN SOB, Wheezes 02/26/22
aspirin 81 mg tablet,delayed release 81 mg PO DAILY Blood Clot Prevention/Tx 02/26/22
esomeprazole magnesium 40 mg capsule,delayed release 40 mg PO DAILY Gastrointestinal Issue 03/13/23
ezetimibe 10 mg tablet 10 mg PO DAILY 09/29/23
rosuvastatin 20 mg tablet 20 mg PO DAILY 09/29/23
insulin glargine 100 unit/mL (3 mL) subcutaneous pen (Basaglar KwikPen U-100 Insulin) 25 - 30 unit SC HS 06/14/24
macitentan 10 mg tablet (Opsumit) 10 mg PO DAILY 06/14/24
tadalafil (pulm. hypertension) 20 mg tablet (pulmonary hypertension) 40 mg PO DAILY 06/14/24
potassium chloride 20 mEq tablet,extended release 40 meq PO TID 07/21/24
dupilumab 300 mg/2 mL subcutaneous syringe (Dupixent) 300 mg SC Q2W 12/16/24
fluticasone fur. 100 mcg-umeclid 62.5 mcg-vilant 25 mcg inhalat.powder (Trelegy Ellipta) 1 inh inhalation DAILY 12/16/24
insulin lispro 100 unit/mL subcutaneous solution (Humalog U-100 Insulin) 1 sliding scale dose SC TID 12/16/24
furosemide 40 mg tablet (Lasix) 40 mg PO DAILY PRN edema #1 tab 12/23/24
spironolactone 25 mg tablet 12.5 mg (1/2 x 25 mg) PO DAILY #1 tab 12/23/24
magnesium oxide 400 mg PO DAILY #30 tabs 04/14/25
Home Medication Changes
new to magnesium
Pending Results: No
--- NOTE | 2025-04-14 12:10 | PTCARENOTE ---
D/C'd pt's IV line & case monitor. Discussed D/C instructions w/pt. Pt escorted out via wheelchair w/friend driving pt home. Pt left w/personal belongings incl cell phone.
--- NOTE | 2025-04-14 15:36 | CM ---
spoke to pt in room, he is previndep, lives with his mom in a split level home with 2 steps to enter. he denies any dc planning needs. he uses a cane. plan isf or dc to home when medically stable.
== END 2025-04-14 12:16 | disposition home or self-care (01) ==
LOC: CATH 13:13
PROVIDERS: Nurse Practitioner Adult Health; ATTENDING PHYSICIAN Internal Medicine Cardiovascular Disease; FAMILY PHYSICIAN Internal Medicine Geriatric Medicine; OTHER PHYSICIAN Internal Medicine Cardiovascular Disease
DX: I44.2 Atrioventricular block, complete (principal); Z09 Encounter for follow-up examination after completed treatment for conditions other than malignant neoplasm; R55 Syncope and collapse; N18.32 Chronic kidney disease, stage 3b; I13.0 Hypertensive heart and chronic kidney disease with heart failure and stage 1 through stage 4 chronic kidney disease, or unspecified chronic kidney disease; I25.10 Atherosclerotic heart disease of native coronary artery without angina pectoris; Z95.1 Presence of aortocoronary bypass graft; E78.5 Hyperlipidemia, unspecified; I27.20 Pulmonary hypertension, unspecified; E11.51 Type 2 diabetes mellitus with diabetic peripheral angiopathy without gangrene; E11.22 Type 2 diabetes mellitus with diabetic chronic kidney disease; K21.9 Gastro-esophageal reflux disease without esophagitis; J44.9 Chronic obstructive pulmonary disease, unspecified; E83.42 Hypomagnesemia; I49.5 Sick sinus syndrome; I50.32 Chronic diastolic (congestive) heart failure; Z79.4 Long term (current) use of insulin; Z79.899 Other long term (current) drug therapy; Z79.82 Long term (current) use of aspirin
CPT/HCPCS: 33208; 33286; 71045; 80048; 82962; 83036; 83735; 85027; 93005; 94640; C1769; C1785; C1887; C1898